=== PATIENT | male | born 1955 | race Caucasian/White ===

== ENCOUNTER 2022-03-07 09:26 | Outpatient (CLI) | payer MEDICARE, SELFPAY ==
[2022-03-07 09:57] LABS: Basophils Percent Auto 0.5 % (0.0-3.0); Eosinophils Percent Auto 3.5 % (0.0-7.0); Hematocrit 44.2 % (37.0-53.0); Hemoglobin* 14.5 gm/dL (13.5-17.5); Lymphocytes Percent Auto 25.9 % (20-44); Mean Corpuscular HGB Conc 33 gm/dL (32-36); Mean Corpuscular Hemoglobin 30 pg (26-34); Mean Corpuscular Volume 92 fL (80-100); Monocytes Percent Auto 6.5 % (0.0-11.0); Neutrophils Percent Auto 63.6 % (42.0-72.0); Platelet Count* 207 K/uL (140-440); RDW Coefficient of Variation % 12.6 % (11.5-15.5); Red Blood Count 4.81 m/uL (4.30-5.90); White Blood Count* 4.33 K/uL (4.50-11.00)
[2022-03-07 09:59] LABS: Slide Review Reflex No
[2022-03-07 10:36] LABS: Creatinine Urine 175.8 mg/dL
[2022-03-07 10:40] LABS: Microalbumin Creatinine Ratio 0 mg/g (0-30); Microalbumin Urine 1 mg/dL
[2022-03-07 11:40] LABS: Albumin* 4.5 g/dL (3.3-5.0); Chloride* 103 mmol/L (96-114); Potassium* 4.5 mmol/L (3.6-5.1); Sodium* 141 mmol/L (135-149)
[2022-03-07 11:42] LABS: Bilirubin Total* 0.9 mg/dL (0.1-1.5); Carbon Dioxide* 29 mmol/L (20-32); Cholesterol* 103 mg/dL (90-199); Creatinine* 1.1 mg/dL (0.5-1.5); Estimated Glomerular Filt Rate 73 ml/min
[2022-03-07 11:43] LABS: Alanine Aminotransferase* 16 U/L (4-50); Alkaline Phosphatase* 96 U/L (40-150); Aspartate Amino Transferase* 23 U/L (12-35); Blood Urea Nitrogen* 20 mg/dL (7-30); Glucose* 167 mg/dL (60-115); Total Protein* 7.2 g/dL (6.0-8.3); Triglycerides* 66 mg/dL (40-149)
[2022-03-07 11:44] LABS: Calcium* 9.4 mg/dL (8.4-10.6); HDL Cholesterol* 55 mg/dL (>=40); LDL Cholesterol Calculated 35 mg/dL (<100)
[2022-03-07 12:16] LABS: PSA Screen* 2.06 ng/mL (0.10-4.00)
== END 2022-03-07 09:27 | disposition home or self-care (01) ==
PROVIDERS: Clinical Nurse Specialist; PCP Internal Medicine; Visit Provider Internal Medicine
DX: E11.9 Type 2 diabetes mellitus without complications (principal); I10 Essential (primary) hypertension; C91.10 Chronic lymphocytic leukemia of B-cell type not having achieved remission; C91.40 Hairy cell leukemia not having achieved remission; Z12.5 Encounter for screening for malignant neoplasm of prostate
CPT/HCPCS: 80053; 80061; 82043; 82570; 84153; 85025

== ENCOUNTER 2022-04-12 09:44 | Outpatient (RCR) | payer MEDICARE, SELFPAY ==
[2022-04-12 10:54] LABS: Basophils Percent Auto 0.8 % (0.0-3.0); Eosinophils Percent Auto 4.4 % (0.0-7.0); Hematocrit 42.4 % (37.0-53.0); Hemoglobin* 13.8 gm/dL (13.5-17.5); Lymphocytes Percent Auto 24.2 % (20-44); Mean Corpuscular HGB Conc 33 gm/dL (32-36); Mean Corpuscular Hemoglobin 30 pg (26-34); Mean Corpuscular Volume 92 fL (80-100); Monocytes Percent Auto 5.7 % (0.0-11.0); Neutrophils Percent Auto 64.9 % (42.0-72.0); Platelet Count* 169 K/uL (140-440); RDW Coefficient of Variation % 12.5 % (11.5-15.5); Red Blood Count 4.63 m/uL (4.30-5.90); White Blood Count* 3.85 K/uL (4.50-11.00)
[2022-04-12 11:01] LABS: Slide Review Reflex Yes
[2022-04-12 11:21] LABS: Immature Reticulocyte Fraction 4.8 % (2.3-13.4); Reticulocyte Hemoglobin Equivi 29.7 pg (29.0-35.0); Reticulocyte Percent 0.8 % (0.5-2.0); Reticulocytes Absolute 0.04 # (0.03-0.08)
[2022-04-12 12:02] LABS: Slide Review Acceptable Review (Acceptable)
== END 2022-10-09 23:59 | disposition home or self-care (01) ==
LOC: CCIC 09:44
PROVIDERS: PCP Internal Medicine; Visit Provider Internal Medicine Hematology & Oncology
DX: C91.40 Hairy cell leukemia not having achieved remission (principal); C91.10 Chronic lymphocytic leukemia of B-cell type not having achieved remission
CPT/HCPCS: 36415; 85025; 85045; 88184; 88185; 99212; 99213

== ENCOUNTER 2022-11-30 08:40 | Outpatient (CLI) | payer MEDICARE, SELFPAY | END 2022-11-30 08:41 | disposition home or self-care (01) | LOC: NFLDREF 12-01 09:40 | PROVIDERS: PCP Internal Medicine; Referring Provider Internal Medicine; Visit Provider Internal Medicine | DX: E11.9 Type 2 diabetes mellitus without complications (principal); I10 Essential (primary) hypertension; Z12.5 Encounter for screening for malignant neoplasm of prostate; C91.10 Chronic lymphocytic leukemia of B-cell type not having achieved remission | CPT/HCPCS: 80053; 80061; 82043; 82570; 84153 ==

== ENCOUNTER 2023-02-07 11:30 | Outpatient (RCR) | payer MEDICARE, SELFPAY ==
--- NOTE | 2023-01-22 11:24 | PT.OPDNX ---
"PT [facility] Daily Note [facility] Daily Note Start: 01/08/23 09:06 Freq: Status: Active Protocol: Document 01/08/23 14:32 [facility] (Rec: 01/08/23 15:24 [facility] [id number]) E-signed By Zohaib Jiménez, PT PT OP Daily Progress Note Visit Information Note Type Daily Note Visit Number 2 Insurance Authorized Visits up to 8 on POC Insurance Information Recert Due Date 03/26/23 Insurance Name Medicare B Medical Diagnosis LBP M54.5 Treating Diagnosis Stiffness of hips M25.652/651 Stiffness of joints (low back) M25.[address] Mo Rowe Subjective Subjective I'm very disappointed in myself I did not do the exercises fully as prescribed. Pt has many questions about the physiology of stretching and wanting to have a program that fits into his daily routine. Pain Comments mild Preferred Name Pat Objective Functional Test Performed & Score Able to sit and don sock/shoe by either placing right foot on plinth or crossing foot over other knee. SL dynamic hinge to ground: unable to perform without assist Patient Instructed in Risks/Benefits Yes Therapeutic Exercise Therapeutic Exercise Minutes (minutes) 45 Therapeutic Exercise: To Restore Reviewed and performed HEP. Functional Status Added Daniel hip flexor stretch and chair squats for leg strength. Access Code: [email or web address] URL: [email or web address] [employer] | [employer]/ Date: 01/08/2023 Prepared by: Zohaib Jiménez Exercises - Seated Piriformis Stretch with Trunk Bend - 2 x daily - 7 x weekly - 1 sets - 2 reps - 30 sec hold - Supine Piriformis Stretch - 2 x daily - 7 x weekly - 1 sets - 2 reps - 30 sec hold - Single Leg Balance with Alternating Floor Reaches - 1 x daily - 7 x weekly - 1 sets - 5-10 reps - Seated Hamstring Stretch - 1 x daily - 7 x weekly - 1 sets - 2 reps - 30 sec hold - Supine Lower Trunk Rotation - 1 x daily - 7 x weekly - 1 sets - 10-15 reps - Standing Hip Hinge - 1 x daily - 7 x weekly - 1 sets - 5 reps - 5 seconds hold - Daniel Stretch - 2 x daily - 7 x weekly - 1 sets - 1 reps - 30-60 seconds hold - Squat with Chair Touch - 1 x daily - 4 x weekly - 1 sets - 10-15 reps Instructed in dynamic warm up stretches to avoid weekend warrior injury with softball, etc. Self Care Management Training Self Care Management Training Recommended the book Built to Move by Cindy Delcid Treatment Minutes Timed Code Treatment Minutes 45 Total Treatment Time 45 Billing Units Therapeutic Exercise Units 3 Assessment/Impression Assessment/Impression Pt very interested in designing the most streamlined stretching and strengthening program that he can fit into his daily routine, such as at work or while sitting at home. We discussed the importance of maintaining mobility for life's daily needs/movement patterns - connecting to patient's personal goals/ desires. Pt to benefit from an additional session to solidify his personal home exercise program. Plan of Care Physical Therapy Goals In 6-8 weeks, patient will: 1) Don socks and shoes from sitting position without low back stiffness or pain 2) Reach floor to lease picker item , back painfree 3) Participate in senior sports (softball) w/o high risk of low back injury, through use of preventative HEP 4) Be I with HEP to facilitae low back strength and hip flexibiliy and strength Daily Plan of Care Continue per POC"
== END 2023-06-07 23:59 | disposition home or self-care (01) ==
PROVIDERS: PCP Internal Medicine; Visit Provider Internal Medicine
DX: M72.2 Plantar fascial fibromatosis (principal); M25.651 Stiffness of right hip, not elsewhere classified; M25.652 Stiffness of left hip, not elsewhere classified; M25.69 Stiffness of other specified joint, not elsewhere classified; R26.81 Unsteadiness on feet; M54.50 Low back pain, unspecified; Z74.09 Other reduced mobility; M79.672 Pain in left foot; Z51.89 Encounter for other specified aftercare
CPT/HCPCS: 97110; 97112; 97140; 97162; 97164; 97535

== ENCOUNTER 2023-02-28 11:23 | Outpatient (CLI) | payer MEDICARE, SELFPAY ==
--- NOTE | 2023-02-28 12:28 | W.ANESCHARGE ---
Anesthesia Charges Start Date/Time Anesthesia Start Date: 02/28/23 Anesthesia Start Time: 12:09 Stop Date/Time Anesthesia Stop Date: 02/28/23 Anesthesia Stop Time: 12:42
--- NOTE | 2023-02-28 12:43 | W.ANESCHARGE ---
Anesthesia Charges Start Date/Time Anesthesia Start Date: 02/28/23 Anesthesia Start Time: 12:09 Stop Date/Time Anesthesia Stop Date: 02/28/23 Anesthesia Stop Time: 12:42
== END 2023-02-28 11:24 | disposition home or self-care (01) ==
LOC: OP CLINIC 11:23
PROVIDERS: PCP Internal Medicine; Visit Provider Surgery
DX: Z12.11 Encounter for screening for malignant neoplasm of colon (principal); K63.5 Polyp of colon; Z86.010 Personal history of colon polyps
CPT/HCPCS: 00811; 45385; 88305; J2704

== ENCOUNTER 2023-06-27 13:57 | Outpatient (RCR) | payer MEDICARE, SELFPAY ==
[2023-06-27 14:21] LABS: Basophils Percent Auto 0.5 % (0.0-3.0); Eosinophils Percent Auto 3.2 % (0.0-7.0); Hematocrit 42.5 % (37.0-53.0); Hemoglobin* 13.9 gm/dL (13.5-17.5); Lymphocytes Percent Auto 26.5 % (20-44); Mean Corpuscular HGB Conc 33 gm/dL (32-36); Mean Corpuscular Hemoglobin 29 pg (26-34); Mean Corpuscular Volume 90 fL (80-100); Monocytes Percent Auto 8.4 % (0.0-11.0); Neutrophils Percent Auto 61.4 % (42.0-72.0); Platelet Count* 173 K/uL (140-440); RDW Coefficient of Variation % 12.8 % (11.5-15.5); Red Blood Count 4.73 m/uL (4.30-5.90); White Blood Count* 4.41 K/uL (4.50-11.00)
[2023-06-27 14:37] LABS: Slide Review Reflex No
[2023-06-27 15:05] LABS: Hemoglobin A1C* 9.1 % (0-5.6)
== END 2023-12-24 23:59 | disposition home or self-care (01) ==
LOC: CCIC 13:57
PROVIDERS: Clinical Nurse Specialist; PCP Internal Medicine; Referring Provider Internal Medicine; Visit Provider Internal Medicine Hematology & Oncology
DX: C91.40 Hairy cell leukemia not having achieved remission (principal); C91.10 Chronic lymphocytic leukemia of B-cell type not having achieved remission; E11.9 Type 2 diabetes mellitus without complications
CPT/HCPCS: 36415; 83036; 85025; 99212; 99213; G0463

== ENCOUNTER 2023-12-11 08:20 | Outpatient (CLI) | payer MEDICARE, SELFPAY ==
--- OUTSIDE RECORDS SUMMARY | 2023-12-11 11:36 | XMS_ITS | Clinical Summary ---
Author Organization [employer] [facility] [employer] Address [place], [place] [address] Care Team Providers Care City Designer Name Role Phone Matthew Rowe MD Primary Care Provider Allergies Active Allergy Reactions Criticality Noted Date Comments Sulfamethoxazole-Trimethoprim Hives 2018 Medications Medication Sig Dispensed Refills Start Date End Date Status atorvastatin (LIPITOR) 20 mg tablet Take 20 mg by mouth once daily. Active aspirin (ECOTRIN) 81 mg enteric coated tablet Take 81 mg by mouth once daily with a meal. Active metFORMIN (GLUCOPHAGE) 1,000 mg tablet Take 2 Tablets (2,000 mg) by mouth once daily with a meal. 0 09/28/2021 Active citalopram (CELEXA) 10 mg tablet once daily. 08/03/2021 Active losartan (COZAAR) 25 mg tabletIndications:Prima ry cardiomyopathy (HC) TAKE 1 TABLET BY MOUTH ONCE DAILY 90 Tablet 3 08/23/2022 Active Active Problems Problem Noted Date Diagnosed Date HTN (hypertension) 01/16/2019 Nonischemic cardiomyopathy 01/16/2019 CLL (chronic lymphocytic leukemia) 01/16/2019 Type II diabetes mellitus 01/16/2019 CLL (chronic lymphocytic leukemia) 01/16/2019 Lumbar stenosis 01/15/2019 Social History Tobacco Use Types Packs/Day Years Used Date Smoking Tobacco: Never Smokeless Tobacco: Never Alcohol Use Standard Drinks/Week Comments Not Currently 0 (1 standard drink = 0.6 oz pur e alcohol) Social Connections Answer Date Recorded Frequency of Communication with Friends and Fami ly Not on file 09/15/2021 Sex and Gender Information Value Date Recorded Sex Assigned at Not on file Gender Identity Not on file Sexual Orientation Not on file Obstetrics History Last Filed Vital Signs Vital Sign Reading Time Taken Comments Blood Pressure 102/58 09/29/2021 9:02 AM CDT Pulse 58 09/29/2021 9:02 AM CDT Temperature 37.2 ??C (98.9 ??F) 01/16/2019 12:00 PM C DT Respiratory Rate 16 09/29/2021 9:02 AM CDT Oxygen Saturation 98% 01/16/2019 12:00 PM CDT Inhaled Oxygen Concentration - - Weight 82.1 kg (181 lb) 09/29/2021 9:02 AM CDT Height 185.4 cm (6' 1) 01/15/2019 1:53 PM CDT Body Mass Index 23.88 01/15/2019 1:53 PM CDT Plan of Treatment Health Maintenance Due Date Last Done Comments Tdap 1964 Depression screening for age 12+ 1965 BMI (ht and wt on same day) for age 18+ 1971 Hepatitis C screening for ag e 18-79 1971 Tetanus booster 1973 Colonoscopy through age 75 1998 Lipids for age 45-75 1998 Zoster (shingles) series for age 50+ (1 of 2) 2003 Medicare Wellness for age 65+ 2018 Pneumococcal series for age 65+ (1 of 1 - PCV) 2018 COVID-19 vaccine series (2022- season) 2023 09/14/2021, 02/21/2021, 08/29/2020, Additional history exists Influenza for age 65+ 02/02/2024 Advance Directives * Full Code (Latest Code Status on File) Date Activated Date Inactivated Comments 01/15/2019 1:37 PM 01/16/2019 7:04 PM Question Answer Comments Code Status Discussion: Per Existing Order Care Teams City Designer Relationship Specialty Start Date End Date Matthew Rowe MD [address] [place] [address] PCP - General Internal Medicine 09/27/21
--- OUTSIDE RECORDS SUMMARY | 2023-12-11 11:36 | XMS_ITS | Clinical Summary ---
Author Organization [place] Address [address] [place] [address] Care Team Providers Care Phosphorus Processing Supervisor Name Role Phone Tristan White MD Primary Care Provider [phone] Jamie Hamlin MD Unavailable Tristan White MD Unavailable [phone] Marlene Rivas APRN [facility] Unavailable [phone] Allergies Active Allergy Reactions Criticality Noted Date Comments Sulfamethoxazole W-Trimethoprim Rash Medium 12/02 Medications Medication Sig Dispensed Refills Start Date End Date Status ASPIRIN PO Take 81 mg by mouth daily Active citalopram (CELEXA) 20 MG tabletIndications: Depression with anxiety Take 0.5 tablets (10 mg) by mouth every evening 30 tablet 5 02/13/2021 Active losartan (COZAAR) 50 MG tabletIndications: NICM (nonischemic cardiomyopathy) (H) Take 1 tablet (50 mg) by mouth daily 90 tablet 3 02/17/2021 Active blood glucose (NO BRAND SPECIFIED) lancets standardIndication s:DM type 2, not at goal (H) Use to test blood sugar 2 times daily or as directed. 100 lancet 3 02/20/2021 Active ONETOUCH VERIO IQ test stripIndications:D M type 2, not at goal (H) USE TO CHECK BLOOD SUGAR TWICE DAILY OR DIRECTED 200 strip 2 05/11/2022 Active Lancets (ONETOUCH DELICA PLUS [id number]) MISCIndications:DM type 2, not at goal (H) 1 Device by Percutaneous route 2 times daily (before meals) Reduced refill amt: - call [phone] to schedule appointment 100 each 6 06/04/2022 Active citalopram (CELEXA) 10 MG tabletIndications: EREN (generalized anxiety disorder) Take 1 tablet (10 mg) by mouth daily Please schedule overdue appointment to return to 90 day refills [phone] 30 tablet 06/08/2022 Active metFORMIN (GLUCOPHAGE XR) 500 MG 24 hr tabletIndications: Type 2 diabetes mellitus with diabetic polyneuropathy, without long-term current use of insulin (H) Take 4 tablets (2,000 mg) by mouth daily (with breakfast) Pat- Reduced refill amt: - call [phone] to schedule appointment/fasting labs 120 tablet 09/28/2022 Active atorvastatin (LIPITOR) 20 MG tabletIndications: Hyperlipidemia LDL goal <100 Take 1 tablet (20 mg) by mouth daily Pat- Reduced refill amt: - call [phone] to schedule appointment/fasting labs 30 tablet 09/28/2022 Active Active Problems Problem Noted Date Diagnosed Date Anxiety with depression 12/18/2020 HTN (hypertension) 01/16/2019 Cardiomyopathy 01/16/2019 Lumbar stenosis 01/15/2019 Fever and neutropenia (H24) 08/22/2017 Hairy cell leukemia, in relapse 08/13/2017 Febrile neutropenia (H24) 08/13/2017 Neutropenic fever (H24) 08/08/2017 Vitamin B12 deficiency (non anemic) 12/16/2016 DM type 2, not at goal 09/22/2016 Type 2 diabetes mellitus wit h diabetic polyneuropathy, without long-term current use of insulin 09/21/2016 Cardiomyopathy, dilated, nonischemic 11/28/2014 LBBB (left bundle branch block) 08/04/2014 Hyperlipidemia LDL goal <100 11/23/2011 Pancytopenia 12/27/2010 Overview: Problem list name updated by automated process. Provider to review and confirm Imo Update utility CLL (chronic lymphocytic leukemia) 12/08/2010 Hairy cell leukemia 12/08/2010 Numbness of feet Resolved Problems Problem Noted Date Diagnosed Date Resolved Date RENDON (dyspnea on exertion) 08/04/2014 Chest pain 08/03/2014 09/22/2016 Advanced directives, counseling/discussion 12/10/2012 11/18/2023 Overview: Advance Care Planning: ACP Review and Resources Provided: Reviewed chart for advance care plan. Isaiah Ely has no plan or code status on file. Discussed available resources and provided with information. Confirmed code status reflects current choices pending further ACP discussions. Confirmed/documented designated decision maker(s). See permanent comments section of demographics in clinical tab. Added by Malissa Rodriguez on 12/10/2012 Immunizations Name Administration Dates Next Due Hepatitis B, Adult 11/26/2008 Influenza (High Dose) 3 kenyatta nt vaccine 07/29/2018 Influenza (IIV3) PF 06/17/2013,03/19/2011,2008 Influenza Vaccine 65+ (Fluzone HD) 02/12/2020 Influenza Vaccine >6 months,quad, PF 03/2019,02/27/2017,05/18/2016,2014 Pneumo Conj 13-V (2010&after) 12/14/2015 Pneumococcal 23 valent 02/12/2020 TDAP Vaccine (Adacel) 10/05/2016,05/30/2006 Family History Medical History Relation Comments Cancer Brother 1 Unknown/Adopted Maternal Grandfather Unknown/Adopted Maternal Grandmother Unknown/Adopted Paternal Grandfather Unknown/Adopted Paternal Grandmother C.A.D. Sister 2 Cancer Sister 2 Relation Status Comments Brother 1 Alive Brother 2 Alive Father Maternal Grandfather Maternal Grandmother Mother Paternal Grandfather Paternal Grandmother Sister 1 Alive Sister 2 Alive Social History Tobacco Use Types Packs/Day Years Used Date Smoking Tobacco: Never Smokeless Tobacco: Never Tobacco Cessation:Counseling Given: No Alcohol Use Standard Drinks/Week Comments No 0 (1 standard drink = 0.6 oz pur e alcohol) PHQ-2 Answer Date Recorded PHQ-2 Score 6 12/16/2020 Adolescent Education Answer Date Record ed Getting School Help Needed Not on file 03/17 Sex and Gender Information Value Date Recorded Sex Assigned at Male 11/15/2020 10:44 AM CDT Gender Identity Male 11/15/2020 10:44 AM CDT Sexual Orientation Straight 11/15/2020 10 :44 AM CDT Last Filed Vital Signs Vital Sign Reading Time Taken Comments Blood Pressure 108/63 01/09/2021 10:28 AM CDT Pulse 58 01/09/2021 10:28 AM CDT Temperature 36.1 ??C (97 ??F) 12/28/2020 8:48 AM CDT Respiratory Rate 18 11/21/2020 11:37 AM CDT Oxygen Saturation 97% 01/09/2021 10:28 AM CDT Inhaled Oxygen Concentration - - Weight 89 kg (196 lb 1.6 oz) 01/09/2021 10:28 AM CDT Height 190.5 cm (6' 3) 01/09/2021 10:28 AM CDT Body Mass Index 24.51 01/09/2021 10:28 AM CDT Plan of Treatment Health Maintenance Due Date Last Done Comments ANNUAL REVIEW OF HM ORDERS 1955 CT COLONOGRAPHY 1955 DEPRESSION ACTION PLAN 1955 FIT 1955 FLEX SIG 1955 sDNA (Cologuard) 1955 RSV VACCINE ( & 60+) (1 - 1-dose 60+ series) 2013 DIABETIC FOOT EXAM 01/15/2019 01/15/2018, 0 01/15/2018, 05/18/2016 FALL RISK ASSESSMENT 02/11/2021 02/12/2020 LIPID 02/11/2021 02/12/2020, 04/0 06/2018, 02/27/2017, Additional history exists MEDICARE ANNUAL WELLNESS VISIT 02/11/2021 02/12/2020, 01/15/2018, 02/27/2017, Additional history exists MICROALBUMIN 02/11/2021 02/12/2020, 04/0 06/2018, 02/27/2017, Additional history exists ZOSTER IMMUNIZATION (2 of 2) 05/24/2021 03/29/2021 EYE EXAM 05/31/2021 05/31/2020, 05/04, 05/29/2019, Additional history exists PHQ-9 06/18/2021 12/16/2020, 11/01, 02/12/2020, Additional history exists A1C 06/30/2021 12/28/2020, 04/03, 10/27/2019, Additional history exists BMP 06/30/2021 12/28/2020, 04/0 11/2020, 03/03/2020, Additional history exists COVID-19 Vaccine ( season) 2023 02/21/2021, 08/29/2020, 07/28/2020 COLONOSCOPY 02/24/2023 02/24/2018, 02/02, 03/10/2015, Additional history exists COLORECTAL CANCER SCREENING 02/24/2023 INFLUENZA VACCINE (Season Ended) 2024 03/29/2021, 02/12/2020, 02/10/2019, Additional history exists ADVANCE CARE PLANNING 02/12/2025 02/13/2020, 013 DTAP/TDAP/TD IMMUNIZATION (3 - Td or Tdap) 10/05/2026 10/05/2016, 05/30/2006 HEPATITIS C SCREENING Completed 08/09/2017, 017 Pneumococcal Vaccine: 65+ Years Completed 02/12/2020, 12/14/2015 HPV IMMUNIZATION Aged Out No longer e ligible based on patient's age to complete this topic IPV IMMUNIZATION Aged Out No longer e ligible based on patient's age to complete this topic MENINGITIS IMMUNIZATION Aged Out No l onger eligible based on patient's age to complete this topic RSV MONOCLONAL ANTIBODY Aged Out No l onger eligible based on patient's age to complete this topic Procedures Procedure Name Priority Date/Time Associated Diagnosis Comments COMPREHENSIVE METABOLIC PANEL Routine 12/28/2020 10:25 AM CDT Hairy cell leukemia, in remission (H) HEMOGLOBIN A1C Routine 12/28/2020 10:25 AM CDT DM type 2, not at goal (H) EYE EXAM - HIM SCAN 05/31/2020 1 2:00 AM PARAFFINER ALBUMIN RANDOM URINE QUANTITATIVE Routine 02/12/2020 10:49 AM CDT Type 2 diabetes mellitus without complication, without long-term current use of insulin (H) LIPID REFLEX TO DIRECT LDL PANEL Routine 02/12/2020 10:43 AM CDT Type 2 diabetes mellitus without complication, without long-term current use of insulin (H) COLONOSCOPY Routine 02/24/2018 1:09 PM CDT HEPATITIS C ANTIBODY Routine 08/09/2017 3:55 AM PARAFFINER Hairy cell leukemia, in relapse (H) from Last 3 Months or Most Recently Relevant to Health Maintenance Results * (ABNORMAL) Hemoglobin A1c (12/28/2020 10:25 AM CDT) Hemoglobin A1C 9.2(H) 0.0 - 5.6 % 12/29/2020 3:[address] [facility] Comment: Normal <5.7% Prediabetes 5.7-6.4% ?? Diabetes 6.5% or higher Note: Adopted from ADA consensus guidelines. Blood STRUCTURE OF LEFT UPPER LIMB / Unknown Venipuncture / Unknown 12/28/2020 10:25 AM CDT 12/28/2020 10:25 AM CDT Tristan White MD LAB - BLOOD ORDER NAOMI [facility] [address] [place] [address] Professional Bldg - [address] [place] [address], [facility] [phone] * (ABNORMAL) Comprehensive metabolic panel (12/28/2020 10:25 AM CDT) Sodium 135 133 - 144 mmol/L 12/28/2020 4:38 PM CDT [facility] Potassium 4.4 3.4 - 5.3 mmol/L 12/28/2020 4:38 PM CDT [facility] Chloride 105 94 - 109 mmol/L 12/28/2020 4:38 PM CDT [facility] Carbon Dioxide (CO2) 26 20 - 32 mmol/L 12/28/2020 4:38 PM CDT [facility] Anion Gap 4 3 - 14 mmol/L 12/28/2020 4:38 PM CDT [facility] Urea Nitrogen 24 7 - 30 mg/dL 12/28/2020 4:38 PM CDT [facility] Creatinine 1.17 0.66 - 1.25 mg/dL 12/28/2020 4:38 PM CDT [facility] Calcium 9.5 8.5 - 10.1 mg/dL 12/28/2020 4:38 PM CDT [facility] Glucose 166(H) 70 - 99 mg/dL 12/28/2020 4:38 PM CDT [facility] Alkaline Phosphatase 62 40 - 150 U/L 12/28/2020 4:38 PM CDT [facility] AST 27 0 - 45 U/L 12/28/2020 4:38 PM CDT [facility] ALT 43 0 - 70 U/L 12/28/2020 4:38 PM CDT [facility] Protein Total 7.1 6.8 - 8.8 g/dL 12/28/2020 4:38 PM CDT [facility] Albumin 4.0 3.4 - 5.0 g/dL 12/28/2020 4:38 PM CDT [facility] Bilirubin Total 0.8 0.2 - 1.3 mg/dL 12/28/2020 4:38 PM CDT [facility] GFR Estimate 64 >60 mL/min/1.7 3m2 12/28/2020 4:38 PM CDT [facility] Comment:As of December 11, 2020, eGFR is calculated by the CKD-EPI creatinine equation, without race adjustment. eGFR can be influenced by muscle mass, exercise, and diet. The reported eGFR is an estimation only and is only applicable if the renal function is stable. Blood STRUCTURE OF LEFT UPPER LIMB / Unknown Venipuncture / Unknown 12/28/2020 10:25 AM CDT 12/28/2020 10:25 AM CDT Renea Magdaleno MD LAB - BLOOD ORDERA BL[facility] [address] [place] [address] Lab (no room number, 1st floor of clinic) [place] [address], [facility] [phone] * EYE EXAM - HIM SCAN (05/31/2020 12:00 AM PARAFFINER) RETINOPATHY NEGATIVE 05/31/2020 Narrative Kayla Lloyd - 05/31/2020 12:00 AM PARAFFINER DIABETIC EYE EXAM ??[facility] Provider Outside OTHER * Albumin Random Urine Quantitative with Creat Ratio (02/12/2020 10:49 AM CDT) Creatinine Urine 265 mg/dL 02/12/2020 5:56 PM CDT [facility] Albumin Urine mg/L 22 mg/L 02/12/2020 6:05 PM CDT [facility] Albumin Urine mg/g Cr 8.26 0 - 17 mg/g Cr 02/12/2020 6:05 PM CDT [facility] Urine specimen (specimen) 02/12/2020 10:49 AM CDT 02/12/2020 10:50 AM CDT Tristan White MD LAB - URINE ORDER NAOMI Performing Organization Address City/State/[facility] Co de Phone Number [facility] [address] [place] [address] * Lipid panel reflex to direct LDL Fasting (02/12/2020 10:43 AM CDT) Cholesterol 114 <200 mg/dL 02/12/2020 4:36 PM CDT [facility] Triglycerides 98 <150 mg/dL 02/12/2020 4:36 PM CDT [facility] Comment:Fasting specimen HDL Cholesterol 55 >39 mg/dL 0 4:36 PM CDT [facility] LDL Cholesterol Calculated 39 <100 mg/dL 02/12/2020 4:36 PM CDT [facility] Comment:Desirable: <100 mg/d l Non HDL Cholesterol 59 <130 mg/dL 02/12/2020 4:36 PM CDT [facility] Blood specimen (specimen) 02/12/2020 10:43 AM CDT 02/12/2020 10:44 AM CDT Tristan White MD LAB - BLOOD ORDER NAOMI [facility] [address] [place], [place] [address] * COLONOSCOPY (02/24/2018 1:09 PM CDT) [facility]OS[facility] [address] [place] [address] [phone] ? Endoscopy Department ___ Patient Name: Isaiah Ely ? Procedure Date: 02/24/2018 1:09 PM ? Date of : 1955 ? Admit Type: Outpatient Age: 62 ?Gender: Male Note Status: Finalized ?Attending MD: Saumya Up MD Pause for the Cause: performed. ? Total Sedation Time: 28 minutes of continuous 1:1 bedside monitoring performed. ___ Procedure: ? Colonoscopy Indications: ? High risk colon cancer surveillance: Personal history of ? colonic polyps Providers: ? Saumya Up MD, Isaiah Nichols RN Referring MD: ?Tristan White MD Medicines: ? Midazolam 2 mg IV, Fentanyl 100 micrograms IV Complications: ? No immediate complications. ___ Procedure: ? Pre-Anesthesia Assessment: ? - Prior to the procedure, a History and Physical was ? performed, and patient medications and allergies were ? reviewed. The patient is competent. The risks and ? benefits of the procedure and the sedation options and ? risks were discussed with the patient. All questions ? were answered and informed consent was obtained. Patient ? identification and proposed procedure were verified by ? the physician and the nurse in the pre-procedure area in ? the procedure room. Mental Status Examination: alert and ? oriented. Airway Examination: normal oropharyngeal ? airway and neck mobility. Respiratory Examination: clear ? to auscultation. CV Examination: normal. Prophylactic ? Antibiotics: The patient does not require prophylactic ? antibiotics. Prior Anticoagulants: The patient has taken ? no previous anticoagulant or antiplatelet agents. ASA ? Grade Assessment: II - A patient with mild systemic ? disease. After reviewing the risks and benefits, the ? patient was deemed in satisfactory condition to undergo ? the procedure. The anesthesia plan was to use moderate ? sedation / analgesia (conscious sedation). Immediately ? prior to administration of medications, the patient was ? re-assessed for adequacy to receive sedatives. The heart ? rate, respiratory rate, oxygen saturations, blood ? pressure, adequacy of pulmonary ventilation, and ? response to care were monitored throughout the ? procedure. The physical status of the patient was ? re-assessed after the procedure. ? After obtaining informed consent, the colonoscope was ? passed under direct vision. Throughout the procedure, ? the patient's blood pressure, pulse, and oxygen ? saturations were monitored continuously. The colonoscopy ? was performed without difficulty. The patient tolerated ? the procedure well. The quality of the bowel preparation ? was good. The Colonoscope was introduced through the ? anus and advanced to the cecum, identified by ? appendiceal orifice and ileocecal valve. ? Findings: ? The perianal and digital rectal examinations were normal. ? Two sessile polyps were found in the descending colon and cecum. The ? polyps were less than 5 mm in size. These polyps were removed with a ? cold biopsy forceps. Resection and retrieval were complete. ? Non-bleeding internal hemorrhoids were found during retroflexion. The ? hemorrhoids were mild. ? Impression: ?- Two less than 5 mm polyps in the descending colon and ? in the cecum, removed with a cold biopsy forceps. ? Resected and retrieved. ? - Non-bleeding internal hemorrhoids. Recommendation: ?- Repeat colonoscopy in 3 - 5 years for surveillance ? based on pathology results. ? - Discharge patient to home (ambulatory). ? - Resume previous diet. ? - Continue present medications. ? - Await pathology results. ? - The findings and recommendations were discussed with ? the patient. ? Electronically signed by: Saumya Up MD Saumya Up MD 02/24/2018 3:26:54 PM I was physically present for the entire viewing portion of the exam. Signature of teaching physician Saumya Up MD Number of Addenda: 0 Note Initiated On: 02/24/2018 1:09 PM Scope In: Scope Out: RADIOLOGY RESULTS 02/24/2018 1:09 PM CDT Tristan White MD PROCEDURES RADIOLOGY RESULTS * Hepatitis C antibody (08/09/2017 3:55 AM PARAFFINER) Hepatitis C Antibody Nonreactive NR^Nonre active 08/09/2017 12:49 PM PARAFFINER [facility] Comment: Assay performance characteristics have not been established for newborns, infants, and children 08/09/2017 3:55 AM PARAFFINER 08/09/2017 4:09 AM PARAFFINER Za Snow PA-C LAB - BLOOD OR DERABLES [address] [address] from Last 3 Months or Most Recently Relevant to Health Maintenance Advance Directives For more information, please contact: [phone] * Full Code (Latest Code Status on File) Date Activated Date Inactivated Comments 08/22/2017 3:30 AM 08/23/2017 5:46 PM * Full Code Date Activated Date Inactivated Comments 08/17/2017 11:25 AM 08/22/2017 3:30 AM * Full Code Date Activated Date Inactivated Comments 08/13/2017 6:22 PM 08/17/2017 11:25 AM * Full Code Date Activated Date Inactivated Comments 08/08/2017 12:02 PM 08/13/2017 6:22 PM * Full Code Date Activated Date Inactivated Comments 08/08/2017 12:04 AM 08/08/2017 12:02 PM Care Teams Phosphorus Processing Supervisor Relationship Specialty Start Date End Date Tristan White MD [address] [place] [phone] PCP - General Family Practice 11/17/10 Jamie Hamlin MD [address] [place] [address] Cardiology 05/29/18 Tristan White MD [address] [place] [phone] Assigned PCP 02/21/20 Marlene Rivas, RADIO PERFORMER PROJECT MANAGER/TEAM COACH [address] [place] [address] Nurse Practitioner Interventional Cardiology 12/28/20
--- OUTSIDE RECORDS SUMMARY | 2023-12-11 11:37 | XMS_ITS | Encounter Summary ---
Author Organization [facility] Address [address] [place] [address] Care Team Providers Care Bread Room Hand Name Role Phone Tristan White MD Primary Care Provider [phone] Renea Magdaleno MD Unavailable Unavailab Jamie Hodges MD Unavailable [phone] Tristan White MD Unavailable [phone] Renea Magdaleno MD Unavailable Unavailab Jamie Hodges MD Unavailable [phone] Tito Gipson MD Unavailable [phone] Marlene Rivas APRN [facility] Unavailable [phone] Roslyn Gray [facility] Unavailable [phone] Jamie Hamlin MD Unavailable [phone] Garret Brown PhD Unavailable [phone] Roslyn Gray [facility] Unavailable [phone] Roslyn Gray [facility] Unavailable [phone] Reason for Visit * Reason Onset Date Comments Patient Request 03/15/2020 Patient is unabl e to find questionnaires in ForMune, needs a link sent to his email so that he can fill out questionnaires if still necessary. Encounter Details Date Type Department Care Team (Late st Contact Info) Description 03/15/[address] [facility] [address] [place] [phone] Garret Brown, PhD [address] [facility] [address] [place] [address] Patient Request (Patient is unable to find questionnaires in Mychart, needs a link sent to his email so that he can fill out questionnaires if still necessary.) Social History Tobacco Use Types Packs/Day Years Used Date Smoking Tobacco: Never Smokeless Tobacco: Never Alcohol Use Standard Drinks/Week Comments No 0 (1 standard drink = 0.6 oz pur e alcohol) PHQ-2 Answer Date Recorded PHQ-2 Score 6 02/12/2020 Sex and Gender Information Value Date Recorded Sex Assigned at Male 11/15/2020 10:44 AM CDT Gender Identity Male 11/15/2020 10:44 AM CDT Sexual Orientation Straight 11/15/2020 10 :44 AM CDT COVID-19 Exposure Response Date Recorded In the last month, have you been in contact with someone who was confirmed or suspected to have Coronavirus / COVID-19? Unable to assess 03/15/2020 6:40 AM CDT documented as of this encounter Miscellaneous Notes * Telephone Encounter - Meghana Grey - 03/15/2020 10:39 PM CDT Reason for call: Other Patient called regarding (reason for call): Patient is unable to find questionnaires in Mychart, needs a link sent to his email so that he can fill out questionnaires if still necessary. Additional comments: Phone number to reach patient: Other phone number: best to send an email Best Time: Can we leave a detailed message on this number? Not Applicable Travel screening: Not Applicable documented in this encounter Plan of Treatment Not on file documented as of this encounter Visit Diagnoses Not on filedocumented in this encounter Additional Health Concerns Assessment Noted Time PHQ-9 Depression Total Score: 15 020 9:42 AM CDT documented as of this encounter Care Teams Bread Room Hand Relationship Specialty Start Date End Date Tristan White MD [address] [place] [phone] PCP - General Family Practice 11/17/10 Renea Magdaleno MD [address] [place] [address] Internal Medicine 12/09/15 03/20/21 Jamie Hamlin MD [address] [place] [phone] Cardiology 05/29/18 Tristan White MD [address] [facility] [address] [place] [address] Assigned PCP 02/21/20 Renea Magdaleno MD NO INFO AVAILABLE 05/18/2022 Assigned Cancer Care Provider 03/25/20 03/09/22 Jamie Hamlin MD [address] [place], [place] [address] Assigned Heart and Vascular Provider 03/25/20 01/14/21 Tito Gipson MD [address] [place], [place] [address] Assigned Musculoskeletal Provider 03/25/20 07/09/20 Marlene Rivas APRN [employer]LECT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 ENGINEER [address] [place], [place] [address] Nurse Practitioner Interventional Cardiology 12/28/20 Roslyn Gray [facility] [address] [place] [address] Pharmacist Pharmacist 01/11/21 03/09/21 Jamie Hamlin MD [address] [place] [id number] Assigned Heart and Vascular Provider 02/19/21 07/13/22 Garret Brown, PhD LP [address] [facility] [address] [place], [place] [address] Assigned Behavioral Health Provider 04/23/21 12/28/22 Roslyn Gray [facility] [address] [id number] Assigned MTM Pharmacist 10/28/21 02/16/22 Roslyn Gray [facility] [address] [address] Assigned MTM Pharmacist 02/28/22 07/27/22 documented as of this encounter
--- OUTSIDE RECORDS SUMMARY | 2023-12-11 11:37 | XMS_ITS | Encounter Summary ---
Author Organization [place] Address [address] [place], [place] [address]. [place] [address] Care Team Providers Care Warehouse Consultant Name Role Phone Tristan White MD Primary Care Provider [phone] Jamie Hamlin MD Unavailable [phone] Tristan White MD Unavailable [phone] Renea Magdaleno MD Unavailable Unavailab Marlene Sahu APRN [facility] Unavailable [phone] Jamie Hamlin MD Unavailable [phone] Garret Brown PhD Unavailable [phone] Roslyn Gray [facility] Unavailable [phone] Roslyn Gray [facility] Unavailable [phone] Reason for Visit * Reason Comments Medication Refill Encounter Details Date Type Department Care Team (Late st Contact Info) Description 02/04/2022 Refill [facility] [address] [place] [address] Tristan White MD [address] [place] [address] Medication Refill Social History Tobacco Use Types Packs/Day Years Used Date Smoking Tobacco: Never Smokeless Tobacco: Never Alcohol Use Standard Drinks/Week Comments No 0 (1 standard drink = 0.6 oz pur e alcohol) PHQ-2 Answer Date Recorded PHQ-2 Score 6 12/16/2020 Sex and Gender Information Value Date Recorded Sex Assigned at Male 11/15/2020 10:44 AM CDT Gender Identity Male 11/15/2020 10:44 AM CDT Sexual Orientation Straight 11/15/2020 10 :44 AM CDT documented as of this encounter Miscellaneous Notes * Telephone Encounter - Tash Bender RN - 02/07/2022 9:19 AM CDT Needs appt, sent 90 day supply with note to pharmacy. Tash Quiñonez RN * Telephone Encounter - Tash Bender RN - 02/06/2022 10:26 AM CDT Requested Prescriptions Pending Prescriptions Disp Refills ??? blood glucose (ONETOUCH VERIO IQ) test strip [Pharmacy Med Name: OneTouch Verio In Vitro Strip]200 strip 2 Sig: USE TO CHECK BLOOD SUGAR TWICE DAILY OR DIRECTED Diabetic Supplies Protocol Failed - 02/04/2022 9:47 PM Failed - Recent (6 mo) or future (30 days) visit within the authorizing provider's specialty Patient had office visit in the last 6 months or has a visit in the next 30 days with authorizing provider. See Patient Info tab in inbasket, or Choose Columns in Meds & Orders section of therefill encounter. Passed - Medication is active on med list Passed - Patient is 18 years of age or older LMOM asking patient to call back to schedule annual physical. Tash Quiñonez RN documented in this encounter Plan of Treatment Not on file documented as of this encounter Visit Diagnoses Diagnosis DM type 2, not at goal (H) Type II or unspecified type diabetes mellitus without mention of complication, uncontrolled documented in this encounter Additional Health Concerns Assessment Noted Time PHQ-9 Depression Total Score: 21 021 7:50 AM CDT documented as of this encounter Care Teams Warehouse Consultant Relationship Specialty Start Date End Date Tristan White MD [address] [phone] PCP - General Family Practice 11/17/10 Jamie Hamlin MD [address] [facility] [address] [place] [address] Cardiology 05/29/18 Tristan White MD [address] [phone] Assigned PCP 02/21/20 Renea Magdaleno MD NO INFO AVAILABLE 05/18/2022 Assigned Cancer Care Provider 03/25/20 03/09/22 Marlene Rivas, ENGINEERING VICE PRESIDENT [facility] [address] [place] [address] [phone] Nurse Practitioner Interventional Cardiology 12/28/20 Jamie Hamlin MD [address] [place] [address] [phone] Assigned Heart and Vascular Provider 02/19/21 07/13/22 Garret Brown, PhD LP [address] [place] [address] [address] [place] [address] Assigned Behavioral Health Provider 04/23/21 12/28/22 Roslyn Gray [facility] [address] [place] [address] [phone] Assigned MTM Pharmacist 10/28/21 02/16/22 Roslyn Gray [facility] [address] [address] [phone] Assigned MTM Pharmacist 02/28/22 07/27/22 documented as of this encounter
--- OUTSIDE RECORDS SUMMARY | 2023-12-11 11:37 | XMS_ITS | Encounter Summary ---
Author Organization [place] Address [address] [facility] [place] [address] Care Team Providers Care Node Js Developer Name Role Phone Tristan White MD Primary Care Provider [phone] Jamie Hamlin MD Unavailable [phone] Tristan White MD Unavailable [phone] Marlene Rivas APRN [facility] Unavailable [phone] Jamie Hamlin MD Unavailable [phone] Garret Brown PhD LP Unavailable [phone] Roslyn Gray [facility] Unavailable [phone] Reason for Visit * Reason Comments Medication Refill Encounter Details Date Type Department Care Team (Late st Contact Info) Description 06/06/[address] [facility] [address] [place] [address] Tristan White MD [address] [place] [address] Medication Refill Social History Tobacco [...] encounter Miscellaneous Notes * Telephone Encounter - Adelaida Kendrick RN - 06/07/2022 7:19 AM CST Requested Prescriptions Pending Prescriptions Disp Refills ??? citalopram (CELEXA) 10 MG tablet [Pharmacy Med Name: Citalopram Hydrobromide 10 MG Oral Tablet]90 tablet 3 Sig: TAKE 1 TABLET BY MOUTH DAILY SSRIs Protocol Failed - 06/06/2022 9:19 PM Failed - Recent (12 mo) or future (30 days) visit within the authorizing provider's specialty Patient has had an office visit with the authorizing provider or a provider within the authorizing providers department within the previous 12 mos or has a future within next 30 days. See Patient Info tab in inbasket, or Choose Columns in Meds & Orders section of the refill encounter. Passed - Medication is active on med list Passed - Patient is age 18 or older Routing refill request to provider for review/approval because: Patient needs to be seen because it has been more than 1 year since last office visit. Pt was left a My chart message to schedule an appointment. Adelaida Kendrick RN [facility] E POLISHER HAND documented in this encounter Plan of Treatment Not on file documented as of this encounter Visit Diagnoses Diagnosis EREN (generalized anxiety disorder) Generalized anxiety disorder documented in this encounter Additional Health Concerns Assessment Noted Time PHQ-9 Depression Total Score: 21 021 7:50 AM CDT documented as of this encounter Care Teams Node Js Developer Relationship Specialty Start Date End Date Tristan White MD [address] [place] [address] PCP - General Family Practice 11/17/10 Jamie Hamlin MD [address] [place] [address] Cardiology 05/29/18 Tristan White MD [address] [place] [address] [address] [place] [address] Assigned PCP 02/21/20 Marlene Rivas APRN EQUIPMENT LEAD [address] [place] [address] Nurse Practitioner Interventional Cardiology 12/28/20 Jamie Hamlin MD [address] [place] [address] Assigned Heart and Vascular Provider 02/19/21 07/13/22 Garret Brown, PhD LP [address] [place] [address] [address]41 [place] [address] Assigned Behavioral Health Provider 04/23/21 12/28/22 Roslyn Gray, [facility] [address] [facility] [address] [place] [address] Assigned MTM Pharmacist 02/28/22 07/27/22 documented as of this encounter
--- OUTSIDE RECORDS SUMMARY | 2023-12-11 11:37 | XMS_ITS | Encounter Summary ---
Author Organization [place] Address [address] [facility] [place] [address] Care Team Providers Care Concrete Carpenter Name Role Phone Tristan White MD Primary Care Provider [phone] Jamie Hamlin MD Unavailable [phone] Tristan White MD Unavailable [phone] Marlene Rivas APRN [facility] Unavailable [phone] Jamie Hamlin MD Unavailable [phone] Garret Brown PhD LP Unavailable [phone] Roslyn Gray [facility] Unavailable Encounter Details Date Type Department Care Team (Late st Contact Info) Description 06/07/2022 [facility] [address] [place] [address] Adelaida Kendrick RN Social History Tobacco Use Types Packs/Day Years [...] AM CDT documented as of this encounter Plan of Treatment Not on file documented as of this encounter Visit Diagnoses Not on filedocumented in this encounter Additional Health Concerns Assessment Noted Time PHQ-9 Depression Total Score: 021 7:50 AM CDT documented as of this encounter Care Teams Concrete Carpenter Relationship Specialty Start Date End Date Tristan White MD [address] [place] [address] PCP - General Family Practice 11/17/10 Jamie Hamlin MD [address] [place] [address] Cardiology 05/29/18 Tristan White MD [address] [place] [address] Assigned PCP 02/21/20 Marlene Rivas, SPECIAL SERVICE REPRESENTATIVE BULK TRUCK DRIVER [address] [place], [place] [phone] Nurse Practitioner Interventional Cardiology 12/28/20 Jamie Hamlin MD [address] [place], [place] 9249[address] Assigned Heart and Vascular Provider 02/19/21 07/13/22 Garret Brown, PhD LP [address] [place] [address] [address] [place], [place] 4907[address] Assigned Behavioral Health Provider 04/23/21 12/28/22 Roslyn Gray, [facility] [address] [place] [address] Assigned MTM Pharmacist 02/28/22 07/27/22 documented as of this encounter
--- OUTSIDE RECORDS SUMMARY | 2023-12-11 11:37 | XMS_ITS | Encounter Summary ---
Author Organization [place] Address [address] [facility] [place] [address] Care Team Providers Care Laborer Pie Bakery Name Role Phone Tristan White MD Primary Care Provider Jamie Hamlin MD Unavailable Tristan White MD Unavailable [phone] Marlene Rivas APRN [facility] Unavailable [phone] Garret Brown PhD LP Unavailable [phone] Roslyn Gray [facility] Unavailable Encounter Details Date Type Department Care Team (Late st Contact Info) Description 07/18/2022 [facility] [address] [place] [address] Hina Dixon RN Social History Tobacco Use Types Packs/Day [...] documented as of this encounter Care Teams Laborer Pie Bakery Relationship Specialty Start Date End Date Tristan White MD [address] [place] [address] PCP - General Family Practice 11/17/10 Jamie Hamlin MD [address] [place] [address] Cardiology 05/29/18 Tristan White MD [address] [facility] [address] [place] [address] Assigned PCP 02/21/20 Marlene Rivas APRN ELECTRIC MELT OPERATOR [address] [place] [address] Nurse Practitioner Interventional Cardiology 12/28/20 Garret Brown, PhD LP [address] [place] [address] 741 [place] [address] Assigned Behavioral Health Provider 04/23/21 12/28/22 Roslyn Gray [facility] [address] [facility] [address] [place] [address] Assigned MTM Pharmacist 02/28/22 07/27/22 documented as of this encounter
--- OUTSIDE RECORDS SUMMARY | 2023-12-11 11:37 | XMS_ITS | Encounter Summary ---
Author Organization [place] Address [address] [facility] [place] [address] Care Team Providers Care Bus Greaser Name Role Phone Tristan White MD Primary Care Provider [phone] Renea Magdaleno MD Unavailable Unavailab Jamie Hodges MD Unavailable [phone] Tristan White MD Unavailable [phone] Renea Magdaleno MD Unavailable Unavailab Marlene Sahu APRN GRAPHIC PRE PRESS TRADES WORKER Unavailable [phone] Roslyn Gray [facility] Unavailable [phone] Jamie Hamlin MD Unavailable [phone] Garret Brown PhD LP Unavailable [phone] Roslyn Gray [facility] Unavailable [phone] Roslyn Gray [facility] Unavailable [phone] Encounter Details Date Type Department Care Team (Late st Contact Info) Description 01/25/2021 [facility] [place] [place] Medical Advice [address] [place] [phone] Roslyn Gray, [facility] [address] [facility] [address] [place] [address] Social History Tobacco Use Types Packs/Day Years [...] or suspected to have Coronavirus / COVID-19? No / Unsure 01/09/2021 10:20 AM CDT documented as of this encounter Plan of Treatment Not on file documented as of this encounter Visit Diagnoses Not on filedocumented in this encounter Additional Health Concerns Assessment Noted Time PHQ-9 Depression Total Score: 21 021 7:50 AM CDT documented as of this encounter Care Teams Bus Greaser Relationship Specialty Start Date End Date Tristan White MD [address] [place] [address] PCP - General Family Practice 11/17/10 Renea Magdaleno MD [address] [place] [address] Internal Medicine 12/09/15 03/20/21 Jamie Hamlin MD [address] [place] [address] Cardiology 05/29/18 Tristan White MD [address] [place] [address] Assigned PCP 02/21/20 Renea Magdaleno MD NO INFO AVAILABLE 05/18/2022 Assigned Cancer Care Provider 03/25/20 03/09/22 Marlene Rivas, SHOP SUPERINTENDENT GRAPHIC PRE PRESS TRADES WORKER [address] [place] [address] Nurse Practitioner Interventional Cardiology 12/28/20 Roslyn Gray [facility] [address] [place] [address] Pharmacist Pharmacist 01/11/21 03/09/21 Jamie Hamlin MD [address] [place] [address] Assigned Heart and Vascular Provider 02/19/21 07/13/22 Garret Brown, PhD LP [address] [place] [address] 741 [place] [address] Assigned Behavioral Health Provider 04/23/21 12/28/22 Roslyn Gray [facility] [address] [place] [address] Assigned MTM Pharmacist 10/28/21 02/16/22 Roslyn Gray [facility] [address] [place] [address] Assigned MTM Pharmacist 02/28/22 07/27/22 documented as of this encounter
--- OUTSIDE RECORDS SUMMARY | 2023-12-11 11:37 | XMS_ITS | Encounter Summary ---
Author Organization [place] Address [address] [place], [place] [address]. [place] [address] Care Team Providers Care Sous Chef Name Role Phone Tristan White MD Primary Care Provider [phone] Jamie Hamlin MD Unavailable [phone] Tristan White MD Unavailable [phone] Renea Magdaleno MD Unavailable Unavailab Marlene Sahu APRN [facility] Unavailable [phone] Jamie Hamlin MD Unavailable [phone] Garret Brown PhD Unavailable [phone] Roslyn Gray [facility] Unavailable [phone] Roslyn Gray [facility] Unavailable [phone] Reason for Visit * Reason Comments Medication Refill Encounter Details Date Type Department Care Team (Late st Contact Info) Description 11/01/2021 Refill [facility] [address] [place] [address] Tristan White MD [address] [place] [address] Medication Refill Social History Tobacco [...] encounter Miscellaneous Notes * Telephone Encounter - Kelly Morales RN - 11/02/2021 10:37 AM CDT Prescription approved per [facility] Refill Protocol. Kelly Salvador RN documented in this encounter Plan of [...] documented as of this encounter Care Teams Sous Chef Relationship Specialty Start Date End Date Tristan White MD [address] [place] [address] PCP - General Family Practice 11/17/10 Jamie Hamlin MD [address] [place] [address] Cardiology 05/29/18 Tristan White MD [address] [place] [address] Assigned PCP 02/21/20 Renea Magdaleno MD NO INFO AVAILABLE 05/18/2022 Assigned Cancer Care Provider 03/25/20 03/09/22 Marlene Rivas, CHIEF OF PARTY GENERAL MANAGER LAND DEPARTMENT [address] [place] [address] Nurse Practitioner Interventional Cardiology 12/28/20 Jamie Hamlin MD [address] [place] [address] Assigned Heart and Vascular Provider 02/19/21 07/13/22 Garret Brown, PhD LP [address] [place] [address] 741 [place] [address] Assigned Behavioral Health Provider 04/23/21 12/28/22 Roslyn Gray [facility] [address] [place] [address] [phone] Assigned MTM Pharmacist 10/28/21 02/16/22 Roslyn Gray [facility] [address] [phone] Assigned MTM Pharmacist 02/28/22 07/27/22 documented as of this encounter
--- OUTSIDE RECORDS SUMMARY | 2023-12-11 11:37 | XMS_ITS | Encounter Summary ---
Author Organization [place] Address [facility] [place] [address] Care Team Providers Care Pulpwood Dealer Name Role Phone Tristan White MD Primary Care Provider [phone] Renea Magdaleno MD Unavailable Unavailab Jamie Hodges MD Unavailable [phone] Tristan White MD Unavailable [phone] Renea Magdaleno MD Unavailable Unavailab Jamie Hodges MD Unavailable [phone] Marlene Rivas APRN WILDLIFE AND GAME PROTECTOR Unavailable [phone] Roslyn Gray [facility] Unavailable [phone] Jamie Hamlin MD Unavailable [phone] Garret Brown PhD LP Unavailable [phone] Roslyn Gray [facility] Unavailable [phone] Roslyn Gray [facility] Unavailable [phone] Reason for Visit * Reason Onset Date Comments Patient Request 01/04/2021 Encounter Details Date Type Department Care Team (Late st Contact Info) Description 01/04/2021 [facility] [address] [place] [address] Tristan White MD [address] [place] [address] Patient Request Social History Tobacco Use Types Packs/Day Years [...] have Coronavirus / COVID-19? No / Unsure 12/30/2020 8:15 AM CDT documented as of this encounter Miscellaneous Notes * Telephone Encounter - Jonatan Hernandes RN - 01/10/2021 9:56 AM CDT Sent provider recommendation * Telephone Encounter - Tristan White MD - 01/10/2021 9:15 AM CDT He already sees oncology hematology. Please let him know that his cancer docs can see if mild anemia needs any evaluation. [facility] * Telephone Encounter - Rose Alberto RN - 01/09/2021 9:[address] White See pt message Do you want him to have a referral to hematology? Referral cued Rose Alberto RN [facility] * Telephone Encounter - Rose Alberto RN - 01/04/2021 5:34 PM CDT MyChart message to pt Rose Alberto RN [facility] documented in this encounter Plan of Treatment Not on file documented as of this encounter Visit Diagnoses Diagnosis DM type 2, not at goal (H) Type II or unspecified type diabetes mellitus without mention of complication, uncontrolled documented in this encounter Additional Health Concerns Assessment Noted Time PHQ-9 Depression Total Score: 21 021 7:50 AM CDT documented as of this encounter Care Teams Pulpwood Dealer Relationship Specialty Start Date End Date Tristan White MD [address] [place] [address] PCP - General Family Practice 11/17/10 Renea Magdaleno MD [address] [place] [address] Internal Medicine 12/09/15 03/20/21 Jamie Hamlin MD [address] [place] [phone] Cardiology 05/29/18 Tristan White MD [address] [place] [address] Assigned PCP 02/21/20 Renea Magdaleno MD NO INFO AVAILABLE 05/18/2022 Assigned Cancer Care Provider 03/25/20 03/09/22 Jamie Hamlin MD [address] [place] [address] [phone] Assigned Heart and Vascular Provider 03/25/20 01/14/21 Marlene Rivas APRN WILDLIFE AND GAME PROTECTOR [address] [place] [address] [phone] Nurse Practitioner Interventional Cardiology 12/28/20 Roslyn Gray [facility] [address] [place] [address] [phone] Pharmacist Pharmacist 01/11/21 03/09/21 Jamie Hamlin MD [address] [place] [address] Assigned Heart and Vascular Provider 02/19/21 07/13/22 Garret Brown, PhD LP [address] [place] [address] [place] [address] [phone] Assigned Behavioral Health Provider 04/23/21 12/28/22 Roslyn Gray [facility] [address] [place] [address] 312334 Assigned MTM Pharmacist 10/28/21 02/16/22 Roslyn Gray [facility] [address] [place] [address] 348604 Assigned MTM Pharmacist 02/28/22 07/27/22 documented as of this encounter
--- OUTSIDE RECORDS SUMMARY | 2023-12-11 11:37 | XMS_ITS | Encounter Summary ---
Author Organization [facility] Address [address] [facility] [place] [address] Care Team Providers Care Shallot Cleaner Name Role Phone Tristan White MD Primary Care Provider [phone] Jamie Hamlin MD Unavailable [phone] Tristan White MD Unavailable [phone] Renea Magdaleno MD Unavailable Unavailab Marlene Sahu APRN [facility] Unavailable [phone] Jamie Hamlin MD Unavailable [phone] Garret Brown PhD LP Unavailable [phone] Roslyn Gray [facility] Unavailable [phone] Roslyn Gray [facility] Unavailable [phone] Reason for Visit * Reason Comments Medication Refill metFORMIN (GLUCOPHAG E XR) 500 MG 24 hr tabletAtorvastatin Encounter Details Date Type Department Care Team (Late st Contact Info) Description 12/21/2021 Refill [facility] [address] [place] [address] Tristan White MD [address] [place] [address] Medication Refill (metFORMIN (GLUCOPHAGE XR) 500 MG 24 hr tablet/Atorvastatin) Social History Tobacco Use Types Packs/Day Years [...] encounter Miscellaneous Notes * Telephone Encounter - Rehana Quach - 03/16/2022 1:37 PM CDT Left voice mail to call back * Telephone Encounter - Tash Bender RN - 12/22/2021 7:07 AM CDT Requested Prescriptions Pending Prescriptions Disp Refills ??? metFORMIN (GLUCOPHAGE XR) 500 MG 24 hr tablet [Pharmacy Med Name: metFORMIN HCl ER 500 MG Oral Tablet Extended Release 24 Hour] 360 tablet 3 Sig: TAKE 4 TABLETS BY MOUTH DAILY WITH BREAKFAST Biguanide Agents Failed - 12/21/2021 10:45 PM Failed - Patient has documented A1c within the specified period of time. If HgbA1C is 8 or greater, it needs to be on file within the past 3 months. If less than 8, must beon file within the past 6 months. Recent Labs Lab Test 12/28/20 1025 A1C 9.2* Failed - Recent (6 mo) or future (30 days) visit within the authorizing provider's specialty Patient had office visit in the last 6 months or has a visit in the next 30 days with authorizing provider or within the authorizing provider's specialty. See Patient Info tab in inbasket, or Choose Columns in Meds & Orders section of the refill encounter. Passed - Patient is age 10 or older Passed - Patient's CR is NOT>1.4 OR Patient's EGFR is NOT<45 within past 12 mos. Recent Labs Lab Test 12/28/20 1025 09/06/20 1130 GFRESTIMATED 64 70 GFRESTBLACK -- 82 Recent Labs Lab Test 12/28/20 1025 CR 1.17 Passed - Patient does NOT have a diagnosis of CHF. Passed - Medication is active on med list ??? atorvastatin (LIPITOR) 20 MG tablet [Pharmacy Med Name: Atorvastatin Calcium 20 MG Oral Tablet]90 tablet 3 Sig: TAKE 1 TABLET BY MOUTH DAILY Statins Protocol Failed - 12/21/2021 10:45 PM Failed - LDL on file in past 12 months Recent Labs Lab Test 02/12/20 1043 LDL 39 Passed - No abnormal creatine kinase in past 12 months No lab results found. Passed - Recent (12 mo) or future (30 [...] - Patient is age 18 or older Last visit 12-28-20. TC please call pt to schedule wellness visit. Tash Quiñonez RN documented in this encounter Plan of Treatment Not on file documented as of this encounter Visit Diagnoses Diagnosis Type 2 diabetes mellitus with diabetic polyneuropathy, without long-term current use of insulin (H) Hyperlipidemia LDL goal <100 Other and unspecified hyperlipidemia documented in this encounter Additional Health Concerns Assessment Noted Time PHQ-9 Depression Total Score: 21 021 7:50 AM CDT documented as of this encounter Care Teams Shallot Cleaner Relationship Specialty Start Date End Date Tristan White MD [address] [place] [address] PCP - General Family Practice 11/17/10 Jamie Hamlin MD [address] [place] [address] Cardiology 05/29/18 Tristan White MD [address] [place] [address] Assigned PCP 02/21/20 Renea Magdaleno MD NO INFO AVAILABLE 05/18/2022 Assigned Cancer Care Provider 03/25/20 03/09/22 Marlene Rivas, OIL AND GAS SUPERINTENDENT FRUIT CUTTER [address] [place] [address] [phone] Nurse Practitioner Interventional Cardiology 12/28/20 Jamie Hamlin MD [address] [place] [address] Assigned Heart and Vascular Provider 02/19/21 07/13/22 Garret Brown, PhD LP [address] [place] [address] [address] [place], [place] [phone] Assigned Behavioral Health Provider 04/23/21 12/28/22 Roslyn Gray [facility] [address] [place] [address] [phone] Assigned MTM Pharmacist 10/28/21 02/16/22 Roslyn Gray [facility] [address] [place] [address] [phone] Assigned MTM Pharmacist 02/28/22 07/27/22 documented as of this encounter
--- OUTSIDE RECORDS SUMMARY | 2023-12-11 11:37 | XMS_ITS | Encounter Summary ---
Author Organization [facility] Address [address] [place] [address] Care Team Providers Care Director Graphics Name Role Phone Tristan White MD Primary Care Provider [phone] Renea Magdaleno MD Unavailable Unavailab Jamie Hodges MD Unavailable + Tristan White MD Unavailable + [phone] Renea Magdaleno MD Unavailable Unavailab Marlene Sahu APRN ORTHOPEDIC SURGEON Unavailable [phone] Roslyn Gray [facility] Unavailable +[phone] Jamie Hamlin MD Unavailable + [phone] Garret Brown PhD Unavailable [phone] Roslyn Gray [facility] Unavailable +[phone] Roslyn Gray [facility] Unavailable +[phone]- Encounter Details Date Type Department Care Team (Late st Contact Info) Description 01/26/2021 [facility] [address] [address] Doni Pereyra Social History Tobacco Use Types Packs/Day Years [...] documented as of this encounter Care Teams Director Graphics Relationship Specialty Start Date End Date Tristan White MD [address] [place] [address] PCP - General Family Practice 11/17/10 Renea Magdaleno MD [address] [place] [address] Internal Medicine 12/09/15 03/20/21 Jamie Hamlin MD [address] [place] [address] Cardiology 05/29/18 Tristan White MD [address] [place] [address] Assigned PCP 02/21/20 Renea Magdaleno MD NO INFO AVAILABLE 05/18/2022 Assigned Cancer Care Provider 03/25/20 03/09/22 Marlene Rivas, BAG PRESS OPERATOR ORTHOPEDIC SURGEON [address] [place] [address] 19263 Nurse Practitioner Interventional Cardiology 12/28/20 Roslyn Gray [facility] [address] [phone] Pharmacist Pharmacist 01/11/21 03/09/21 Jamie Hamlin MD [address] [place] [address] [phone] Assigned Heart and Vascular Provider 02/19/21 07/13/22 Garret Brown, PhD LP [address] [place] [address] [address] [place], [place] 416095 Assigned Behavioral Health Provider 04/23/21 12/28/22 Roslyn Gray [facility] [address] [phone] Assigned MTM Pharmacist 10/28/21 02/16/22 Roslyn Gray [facility] [address] [place] [address] [phone] Assigned MTM Pharmacist 02/28/22 07/27/22 documented as of this encounter
--- OUTSIDE RECORDS SUMMARY | 2023-12-11 11:37 | XMS_ITS | Encounter Summary ---
Author Organization [place] Address [address] [place], [place] [address]. [place] [address] Care Team Providers Care Certified Lactation Counselor Name Role Phone Tristan White MD Primary Care Provider [phone] Jamie Hamlin MD Unavailable [phone] Tristan White MD Unavailable [phone] Renea Magdaleno MD Unavailable Unavailab Marlene Sahu APRN [facility] Unavailable [phone] Jamie Hamlin MD Unavailable [phone] Garret Brown PhD Unavailable [phone] Roslyn Gray [facility] Unavailable [phone] Roslyn Gray [facility] Unavailable [phone] Reason for Visit * Reason Comments Medication Refill Encounter Details Date Type Department Care Team (Late st Contact Info) Description 07/04/2021 Refill [facility] [address] [place] [address] Tristan White MD [address] [place] [address] Medication Refill Social History Tobacco [...] encounter Miscellaneous Notes * Telephone Encounter - Livier Jasso RN - 07/05/2021 8:37 AM CST Requested Prescriptions Pending Prescriptions Disp Refills ??? blood glucose (ONETOUCH VERIO IQ) test strip [Pharmacy Med Name: OneTouch Verio In Vitro Strip]200 strip 3 Sig: USE TO TEST BLOOD SUGAR TWICE DAILY OR DIRECTED Diabetic Supplies Protocol Failed - 07/04/2021 10:34 PM Failed - Recent (6 mo) or [...] is 18 years of age or older ??? metFORMIN (GLUCOPHAGE-XR) 500 MG 24 hr tablet [Pharmacy Med Name: metFORMIN HCl ER 500 MG Oral Tablet Extended Release 24 Hour] 360 tablet 3 Sig: TAKE 4 TABLETS BY MOUTH DAILY WITH BREAKFAST Biguanide Agents Failed - 07/04/2021 10:34 PM Failed - Patient has documented A1c [...] Medication is active on med list ??? Lancets (ONETOUCH DELICA PLUS [id number]) MISC [Pharmacy Med Name: LANCET ONE TCH DEL PLUS 30 G]3 Sig: USE TO TEST BLOOD SUGAR TWICE DAILY OR DIRECTED Diabetic Supplies Protocol Failed - 07/04/2021 10:34 PM Failed - Medication is active on med list Failed - Recent (6 mo) or future (30 days) visit within the authorizing provider's specialty Patient had office visit in the last 6 months or has a visit in the next 30 days with authorizing provider. See Patient Info tab in inbasket, or Choose Columns in Meds & Orders section of therefill encounter. Passed - Patient is 18 years of age or older Signed Prescriptions Disp Refills citalopram (CELEXA) 10 MG tablet 90 tablet 3 Sig: TAKE 1 TABLET BY MOUTH DAILY SSRIs Protocol Passed - 07/04/2021 10:34 PM Passed - Recent (12 mo) or future [...] refill request to provider for review/approval because: Labs not current: A1C Patient needs to be seen because: 6 mo f/u Livier Malone RN [facility] SIDE MECHANIC documented in this encounter Plan of Treatment Not on file documented as of this encounter Visit Diagnoses Diagnosis EREN (generalized anxiety disorder) Generalized anxiety disorder DM type 2, not at goal (H) Type II or unspecified type diabetes mellitus without mention of complication, uncontrolled Type 2 diabetes mellitus with diabetic polyneuropathy, without long-term current use of insulin (H) documented in this encounter Additional Health Concerns Assessment Noted Time PHQ-9 Depression Total Score: 021 7:50 AM CDT documented as of this encounter Care Teams Certified Lactation Counselor Relationship Specialty Start Date End Date Tristan White MD [address] [facility] [address] [place] [phone] PCP - General Family Practice 11/17/10 Jamie Hamlin MD [address] [phone] Cardiology 05/29/18 Tristan White MD [address] [phone] Assigned PCP 02/21/20 Renea Magdaleno MD NO INFO AVAILABLE 05/18/2022 Assigned Cancer Care Provider 03/25/20 03/09/22 Marlene Rivas, LEAD SECURITY OFFICER [facility] [address] [place] [address] Nurse Practitioner Interventional Cardiology 12/28/20 Jamie Hamlin MD [address] [place] [address] [phone] Assigned Heart and Vascular Provider 02/19/21 07/13/22 Garret Brown, PhD LP [address] [place] [address] [address] [place] [address] Assigned Behavioral Health Provider 04/23/21 12/28/22 Roslyn Gray, [facility] [address] [place] [address] Assigned MTM Pharmacist 10/28/21 02/16/22 Roslyn Gray, [facility] [address] [facility] [address] [address] Assigned MTM Pharmacist 02/28/22 07/27/22 documented as of this encounter
--- OUTSIDE RECORDS SUMMARY | 2023-12-11 11:37 | XMS_ITS | Encounter Summary ---
Author Organization [facility] Address [address] [place] [address] Care Team Providers Care Associate Director Name Role Phone Tristan White MD Primary Care Provider Renea Magdaleno MD Unavailable Unavailab Jamie Hodges MD Unavailable + [phone] Tristan White MD Unavailable [phone] Renea Magdaleno MD Unavailable Unavailab Marlene Sahu APRN HOSE OPERATOR Unavailable [phone] Roslyn Gray [facility] Unavailable [phone] Jamie Hamlin MD Unavailable [phone] Garret Brown PhD LP Unavailable [phone] Roslyn Gray [facility] Unavailable [phone] Roslyn Gray [facility] Unavailable [phone] Reason for Visit * Reason Onset Date Comments Erroneous encounter-disregard 02/10/2021 Encounter Details Date Type Department Care Team (Late st Contact Info) Description 02/10/2021 [facility] [address] [place] [address] Tristan White MD [address] [place] [address] Erroneous encounter-disregard Social History Tobacco Use Types Packs/Day Years [...] encounter Miscellaneous Notes * Telephone Encounter - Telma Fang - 02/10/2021 9:30 AM CDT ERROR documented in this encounter Plan of Treatment Not on file documented as of this encounter Visit Diagnoses Not on filedocumented in this encounter Additional Health Concerns Assessment Noted Time PHQ-9 Depression Total Score: 21 021 7:50 AM CDT documented as of this encounter Care Teams Associate Director Relationship Specialty Start Date End Date Tristan White MD [address] [place] [address] PCP - General Family Practice 11/17/10 Renea Magdaleno MD [address] [place] [address] Internal Medicine 12/09/15 03/20/21 Jamie Hamlin MD [address] [place] [address] Cardiology 05/29/18 Tristan White MD [address] [place] [address] Assigned PCP 02/21/20 Renea Magdaleno MD NO INFO AVAILABLE 05/18/2022 Assigned Cancer Care Provider 03/25/20 03/09/22 Marlene Rivas APRN [facility] [address] [place] [address] Nurse Practitioner Interventional Cardiology 12/28/20 Roslyn Gray [facility] [address] [place] [address] [phone] Pharmacist Pharmacist 01/11/21 03/09/21 Jamie Hamlin MD [address] [place] [address] 206255 Assigned Heart and Vascular Provider 02/19/21 07/13/22 Garret Brown, PhD LP [address] [place] [address] [address] [place] [address] Assigned Behavioral Health Provider 04/23/21 12/28/22 Roslyn Gray [facility] [address] [place] [address] Assigned MTM Pharmacist 10/28/21 02/16/22 Roslyn Gray [facility] [address] [place] [address] 389204 Assigned MTM Pharmacist 02/28/22 07/27/22 documented as of this encounter
--- OUTSIDE RECORDS SUMMARY | 2023-12-11 11:37 | XMS_ITS | Encounter Summary ---
Author Organization [place] Address [address] [place] [address] Care Team Providers Care Bath Design Sales Consultant Name Role Phone Tristan White MD Primary Care Provider [phone] Renea Magdaleno MD Unavailable Unavailab Jamie Hodges MD Unavailable [phone] Tristan White MD Unavailable [phone] Renea Magdaleno MD Unavailable Unavailab Jamie Hdoges MD Unavailable [phone] Marlene Rivas APRN PATIENT ACCOUNT LIAISON Unavailable [phone] Roslyn Gray [facility] Unavailable [phone] Jamie Hamlin MD Unavailable [phone] Graret Brown PhD LP Unavailable [phone] Roslyn Gray [facility] Unavailable [phone] Roslyn Gray [facility] Unavailable [phone] Encounter Details Date Type Department Care Team (Late st Contact Info) Description 09/06/2020 [facility] [address] [address] [facility] Social History Tobacco Use Types Packs/Day Years Used Date Smoking Tobacco: Never Smokeless Tobacco: Never Alcohol Use Standard Drinks/Week Comments No 0 (1 standard drink = 0.6 oz pur e alcohol) PHQ-2 Answer Date Recorded PHQ-2 Score 02/12/2020 Sex and Gender Information Value Date Recorded Sex Assigned at Male 11/15/2020 10:44 AM CDT Gender Identity Male 11/15/2020 10:44 AM CDT Sexual Orientation Straight 11/15/2020 10 :44 AM CDT COVID-19 Exposure Response Date Recorded In the last month, have you been in contact with someone who was confirmed or suspected to have Coronavirus / COVID-19? No / Unsure 09/06/2020 11:01 AM CDT documented as of this encounter Plan of Treatment Not on file documented as of this encounter Visit Diagnoses Not on filedocumented in this encounter Additional Health Concerns Assessment Noted Time PHQ-9 Depression Total Score: 020 9:42 AM CDT documented as of this encounter Care Teams Bath Design Sales Consultant Relationship Specialty Start Date End Date Tristan White MD [address] [place] [phone] PCP - General Family Practice 11/17/10 Renea Magdaleno MD [address] [place] [address] Internal Medicine 12/09/15 03/20/21 Jamie Hamlin MD [address] [place] [address] Cardiology 05/29/18 Tristan White MD [address] [place] [address] Assigned PCP 02/21/20 Renea Magdaleno MD NO INFO AVAILABLE 05/18/2022 Assigned Cancer Care Provider 03/25/20 03/09/22 Jamie Hamlin MD [address] [place] [address] Assigned Heart and Vascular Provider 03/25/20 01/14/21 Marlene Rivas APRN [facility] [address] [place] [address] Nurse Practitioner Interventional Cardiology 12/28/20 Roslyn Gray [facility] [address] [place] [address] [phone] Pharmacist Pharmacist 01/11/21 03/09/21 Jamie Hamlin MD [address] [place] [address] Assigned Heart and Vascular Provider 02/19/21 07/13/22 Garret Brown, PhD LP [address] [place] [address] Assigned Behavioral Health Provider 04/23/21 12/28/22 Roslyn Gray [facility] [address] [place] [address] [phone] Assigned MTM Pharmacist 10/28/21 02/16/22 Roslyn Gray [facility] [address] [place] [address] [phone] Assigned MTM Pharmacist 02/28/22 07/27/22 documented as of this encounter
--- OUTSIDE RECORDS SUMMARY | 2023-12-11 11:37 | XMS_ITS | Encounter Summary ---
Author Organization [facility] Address [address] [facility] [place] [address] Care Team Providers Care Director Sales Support Name Role Phone Tristan White MD Primary Care Provider [phone] Jamie Hamlin MD Unavailable [phone] Tristan White MD Unavailable [phone] Marlene Rivas APRN [facility] Unavailable [phone] Jamie Hamlin MD Unavailable [phone] Garret Brown PhD LP Unavailable [phone] Roslyn Gray [facility] Unavailable Encounter Details Date Type Department Care Team (Late st Contact Info) Description 05/11/2022 [facility] [address] [place] [address] Reno Li RN Social History Tobacco Use Types Packs/Day [...] as of this encounter Care Teams Director Sales Support Relationship Specialty Start Date End Date Tristan White MD [address] [place] [address] PCP - General Family Practice 11/17/10 Jamie Hamlin MD [address] [place] [address] Cardiology 05/29/18 Tristan White MD [address] [place] [address] Assigned PCP 02/21/20 Marlene Rivas, ANASTASIA FILM LIBRARY CLERK [address] [place], [place] 0[address] Nurse Practitioner Interventional Cardiology 12/28/20 Jamie Hamlin MD [address] [place], [place] 942985 Assigned Heart and Vascular Provider 02/19/21 07/13/22 Garret Brown, PhD LP [address] [place] [address] 7[address] [place], [place] [phone] Assigned Behavioral Health Provider 04/23/21 12/28/22 Roslyn Gray [facility] [address] [place], [place] 75[address] Assigned MTM Pharmacist 02/28/22 07/27/22 documented as of this encounter
--- OUTSIDE RECORDS SUMMARY | 2023-12-11 11:37 | XMS_ITS ---
Author Organization [facility] Address [address] [place] [address] Care Team Providers Care Disability Insurance Hearing Officer Name Role Phone Tristan White MD Primary Care Provider Jamie Hamlin MD Unavailable [phone] Tristan White MD Unavailable [phone] Marlene Rivas APRN COIN WRAPPING MACHINE OPERATOR Unavailable [phone] Active Problems Problem Noted Date Diagnosed Date [...] Hairy cell leukemia 12/08/2010 Numbness of feet Current Oncology Plans No current plan information found. Past Plans INFUSION Plan Name Start Date Discontinue Date Treatment Medications Discontinue Reason Plan Provider SOT - PENTAMIDINE (NEBUPENT) 08/05/2017 07/23/2018 No medications scheduled. Therapy Complete Radha Zimmerman PA-C INFUSION 2 Plan Name Start Date Discontinue Date Treatment Medications Discontinue Reason Plan Provider GENERIC INFUSION 08/13/2017 08/20/2018 No medications scheduled. Therapy Complete Radha Zimmerman PA-C ONCOLOGY TREATMENT Plan Name Start Date Discontinue Date Treatment Medications Discontinue Reason Plan Provider Cycles Cladribine + Rituxan for Hairy Cell Leukemia 08/05/2017 08/20/2018 cladribine (LEUSTATIN) infusionriTUXimab (RITUXAN) infusion Therapy Complete Renea Magdaleno MD 2 of 2 cycles started Radiation Treatments * No radiation treatments are documented for this patient in [facility]. Treatments may have been administered in another system. Resolved Problems Problem Noted Date Diagnosed Date [...]
--- OUTSIDE RECORDS SUMMARY | 2023-12-11 11:37 | XMS_ITS | Referral Summary ---
Author Organization [place] Address [address] [place] [address] Care Team Providers Care Director Search Marketing Strategies Name Role Phone Tristan White MD Primary Care Provider [phone] Jamie [facility] MD Unavailable Tristan White MD Unavailable [phone] Marlene Rivas APRN [facility] Unavailable [phone] Allergies Active Allergy Reactions Criticality Noted Date [...] 2 05/11/2022 Active Lancets (ONETOUCH DELICA PLUS [id number]) MISCIndications:DM type 2, not at goal (H) 1 Device by Percutaneous route 2 times daily (before meals) Reduced refill amt: - call [phone] to schedule appointment 100 each 6 06/04/2022 Active citalopram (CELEXA) 10 MG tabletIndications: EREN (generalized anxiety disorder) Take 1 tablet (10 mg) by mouth daily Please schedule overdue appointment to return to 90 day refills [phone] 30 tablet 06/08/2022 Active metFORMIN (GLUCOPHAGE XR) 500 MG 24 hr tabletIndications: Type 2 diabetes mellitus with diabetic polyneuropathy, without long-term current use of insulin (H) Take 4 tablets (2,000 mg) by mouth daily (with breakfast) Pat- Reduced refill amt: - call [phone] to schedule appointment/fasting labs 120 tablet 09/28/2022 Active atorvastatin (LIPITOR) 20 MG tabletIndications: Hyperlipidemia LDL goal <100 Take 1 tablet (20 mg) by mouth daily Pat- Reduced refill amt: - call [phone] to schedule appointment/fasting labs 30 tablet 09/28/2022 [...] 23 valent 02/12/2020 TDAP Vaccine (Adacel) 10/05/2016,05/30/2006 Social History Tobacco Use Types Packs/Day Years [...] 01/09/2021 10:28 AM CDT Plan of Treatment Not on file Procedures Procedure Name Priority Date/Time Associated Diagnosis Comments COMPREHENSIVE METABOLIC PANEL Routine 12/28/2020 10:25 AM CDT Hairy cell leukemia, in remission (H) HEMOGLOBIN A1C Routine 12/28/2020 10:25 AM CDT DM type 2, not at goal (H) EYE EXAM - HIM SCAN 05/31/2020 1 2:00 AM SAIL FINISHER HAND ALBUMIN RANDOM URINE QUANTITATIVE Routine 02/12/2020 10:49 AM CDT Type 2 diabetes mellitus without complication, without long-term current use of insulin (H) LIPID REFLEX TO DIRECT LDL PANEL Routine 02/12/2020 10:43 AM CDT Type 2 diabetes mellitus without complication, without long-term current use of insulin (H) COLONOSCOPY Routine 02/24/2018 1:09 PM CDT HEPATITIS C ANTIBODY Routine 08/09/2017 3:55 AM SAIL FINISHER HAND Hairy cell leukemia, in relapse (H) from [...] LAB - BLOOD ORDER NAOMI RD LABORATORY [facility] [address] [facility] [place] [address] [place] [address], [facility] [phone] * (ABNORMAL) Comprehensive metabolic panel (12/28/2020 10:25 [...] Magdaleno MD LAB - BLOOD ORDERA BLES LABORATORY [facility] [address] Lab (no room number, 1st floor of clinic) [place] [address], [facility] [phone] * EYE EXAM - HIM SCAN (05/31/2020 12:00 AM SAIL FINISHER HAND) RETINOPATHY NEGATIVE 05/31/2020 Narrative Kayla Lloyd - 05/31/2020 12:00 AM SAIL FINISHER HAND DIABETIC EYE EXAM ??[facility] Provider Outside OTHER * Albumin Random Urine Quantitative with Creat Ratio (02/12/2020 10:49 AM CDT) Creatinine Urine 265 mg/dL 02/12/2020 5:56 PM CDT [facility] Albumin Urine mg/L 22 mg/L 02/12/2020 6:05 PM CDT [facility] Albumin Urine mg/g Cr 8.26 0 - 17 mg/g Cr 02/12/2020 6:05 PM CDT [facility] Urine specimen (specimen) 02/12/2020 10:49 AM CDT 02/12/2020 10:50 AM CDT Tristan White MD LAB - URINE ORDER NAOMI [facility] [address] [place] [address] * Lipid panel reflex to direct LDL Fasting (02/12/2020 10:43 AM CDT) [facility] Cholesterol 114 <200 mg/dL 02/12/2020 4:36 PM CDT [facility] Triglycerides 98 <150 mg/dL 02/12/2020 4:36 PM CDT [facility] Comment:Fasting specimen HDL Cholesterol 55 >39 mg/dL 0 4:36 PM CDT [facility] LDL Cholesterol Calculated 39 <100 mg/dL 02/12/2020 4:36 PM CDT [facility] Comment:Desirable: <100 mg/d l Non HDL Cholesterol 59 <130 mg/dL 02/12/2020 4:36 PM CDT [facility] Blood specimen (specimen) 02/12/2020 10:43 AM CDT 02/12/2020 10:44 AM CDT Tristan White MD LAB - BLOOD ORDER NAOMI Performing Organization Address [facility] Co de Phone Number [facility] [address], [place] [address] * COLONOSCOPY (02/24/2018 1:09 PM CDT) [facility] COLONOSCOPY [facility] [address] [place] [address] [phone] ? Endoscopy Department ___ Patient Name: Isaiah Amosoughlin ? Procedure Date: 02/24/2018 1:09 PM ? [...] 1:09 PM CDT Tristan White MD PROCEDURES Performing Organization Address City/[facility]/ZIP Co de Phone Number RADIOLOGY RESULTS * Hepatitis C antibody (08/09/2017 3:55 AM SAIL FINISHER HAND) Hepatitis C Antibody Nonreactive NR^Nonre active 08/09/2017 12:49 PM SAIL FINISHER HAND [facility] Comment: Assay performance characteristics have not been established for newborns, infants, and children 08/09/2017 3:55 AM SAIL FINISHER HAND 08/09/2017 4:09 AM SAIL FINISHER HAND Za Snow PA-C LAB - BLOOD OR DERABLES [facility] [address] from Last 3 Months or Most Recently Relevant to Health Maintenance Advance Directives For more information, please contact: [phone] * Full Code (Latest Code Status on [...] 12:04 AM 08/08/2017 12:02 PM Care Teams Director Search Marketing Strategies Relationship Specialty Start Date End Date Tristan White MD [address] [place] [address] PCP - General Family Practice 11/17/10 Jamie [facility] MD [address] [place] [address] Cardiology 05/29/18 Tristan White MD [address] [address] Assigned PCP 02/21/20 Marlene Rivas, SKILLED LABORER DIRECTOR OF RESEARCH [address] [place] [address] Nurse Practitioner Interventional Cardiology 12/28/20
--- OUTSIDE RECORDS SUMMARY | 2023-12-11 11:37 | XMS_ITS | Encounter Summary ---
Author Organization [place] Address [address] [facility] [place] [address] Care Team Providers Care Career Representative Name Role Phone Tristan White MD Primary Care Provider [phone] Renea Magdaleno MD Unavailable Unavailab Jamie Hodges MD Unavailable [phone] Tristan White MD Unavailable +[phone] Renea Magdaleno MD Unavailable Unavailab Jamie Hodges MD Unavailable [phone] Marlene Rivas APRN SYSTEM SUPPORT TECHNICIAN Unavailable [phone] Rsolyn Gray [facility] Unavailable [phone] Jamie [place] MD Unavailable [phone] Garret Brown PhD LP Unavailable [phone] Roslyn Gray [facility] Unavailable [phone] Roslyn Gray [facility] Unavailable [phone] Encounter Details Date Type Department Care Team (Late st Contact Info) Description 07/12/2020 [facility] [address] [place] [address] Tristan White MD [address] [place] [address] Social History Tobacco Use Types Packs/Day Years [...] have Coronavirus / COVID-19? 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 Ayesha Daly RN [facility] HING ROOM SUPERVISOR documented in this encounter Plan of Treatment Not on file documented as of this encounter Visit Diagnoses Not on filedocumented in this encounter Additional Health Concerns Assessment Noted Time PHQ-9 Depression Total Score: 15 020 9:42 AM CDT documented as of this encounter Care Teams Career Representative Relationship Specialty Start Date End Date Tristan White MD [address] [place] [address] PCP - General Family Practice 11/17/10 Renea Magdaleno MD [address] [place] [address] Internal Medicine 12/09/15 03/20/21 Jamie [facility] MD [address] [place] [phone] Cardiology 05/29/18 Tristan White MD [address] [facility] [address] [place] [address] Assigned PCP 02/21/20 Renea Magdaleno MD NO INFO AVAILABLE 05/18/2022 Assigned Cancer Care Provider 03/25/20 03/09/22 Jamie [facility] MD [address] [place] [address] Assigned Heart and Vascular Provider 03/25/20 01/14/21 Marlene Rivas APRN [facility] [address] [place] [address] Nurse Practitioner Interventional Cardiology 12/28/20 Roslyn Gray [facility] [address] [place] [address] [phone] Pharmacist Pharmacist 01/11/21 03/09/21 Jamie [facility] MD [address] [place] [address] Assigned Heart and Vascular Provider 02/19/21 07/13/22 Garret Brown, PhD LP [address] [place] [address] [address] [place], [place] 6[address] Assigned Behavioral Health Provider 04/23/21 12/28/22 Roslyn Gray [facility] [address] [place] [address] Assigned MTM Pharmacist 10/28/21 02/16/22 Roslyn Gray [facility] [address] [place] [address] [phone] Assigned MTM Pharmacist 02/28/22 07/27/22 documented as of this encounter
--- OUTSIDE RECORDS SUMMARY | 2023-12-11 11:37 | XMS_ITS | Encounter Summary ---
Author Organization [place] Address [address] [place] [address] Care Team Providers Care Rn Post Partum Name Role Phone Tristan White MD Primary Care Provider [phone] Renea Magdaleno MD Unavailable Unavailab Jamie Hodges MD Unavailable + [phone] Tristan White MD Unavailable +- [phone] Renea Magdaleno MD Unavailable Unavailab Marlene Sahu APRN [employer] [facility] Unavailable [phone] Roslyn Gray [facility] Unavailable [phone] Jamie [facility] MD Unavailable + [phone] Garret Brown PhD Unavailable [phone] Roslyn Gray [facility] Unavailable +[phone]- Roslyn Gray [facility] Unavailable +[phone]- Encounter Details Date Type Department Care Team (Late st Contact Info) Description 02/02/2021 [facility] [address] [address] Mago Noble Social History Tobacco Use Types Packs/Day Years [...] documented as of this encounter Care Teams Rn Post Partum Relationship Specialty Start Date End Date Tritsan White MD [address] [phone] PCP - General Family Practice 11/17/10 Renea Magdaleno MD [address] [address] Internal Medicine 12/09/15 03/20/21 Jamie [facility] MD [address] [phone] Cardiology 05/29/18 Tristan White MD [address] [place] [address] Assigned PCP 02/21/20 Renea Magdaleno MD NO INFO AVAILABLE 05/18/2022 Assigned Cancer Care Provider 03/25/20 03/09/22 Marlene Rivas, METAPHYSICIAN BONE CRUSHER [address] [place] [address] Nurse Practitioner Interventional Cardiology 12/28/20 Roslyn Gray [facility] [address] [place] [address] [phone] Pharmacist Pharmacist 01/11/21 03/09/21 Jamie [facility] MD [address] [place] [address] [phone] Assigned Heart and Vascular Provider 02/19/21 07/13/22 Garret Brown, PhD LP [address] [place] [address] [address] [place], [place] 036[address] Assigned Behavioral Health Provider 04/23/21 12/28/22 Roslyn Gray [facility] [address] [place] [address] [phone] Assigned MTM Pharmacist 10/28/21 02/16/22 Roslyn Gray [facility] [address] [place] [address] [phone] Assigned MTM Pharmacist 02/28/22 07/27/22 documented as of this encounter
--- OUTSIDE RECORDS SUMMARY | 2023-12-11 11:37 | XMS_ITS | Encounter Summary ---
Author Organization [place] Address [address] [place], [place] [address]. [place] [address] Care Team Providers Care Carpentry Specialist Name Role Phone Tristan White MD Primary Care Provider [phone] Jamie [facility] MD Unavailable [phone] Tristan White MD Unavailable [phone] Renea Magdaleno MD Unavailable Unavailab Marlene Sahu APRN [facility] Unavailable [phone] Jamie [facility] MD Unavailable [phone] Garret Brown PhD Unavailable [phone] [facility] Unavailable [phone] Roslyn Gray [facility] Unavailable [phone] Reason for Visit * Reason Comments Medication Refill Encounter Details Date Type Department Care Team (Late st Contact Info) Description 09/15/2021 Refill [facility] [address] [place] [address] Tristan White MD [address] [place] [address] Medication Refill Social History Tobacco [...] encounter Miscellaneous Notes * Telephone Encounter - Aidee Arias RN - 09/19/2021 7:37 AM CDT Routing refill request to provider for review/approval because: Overdue for apt- last in 12/2020. Added in pharm comments to schedule. Please authorize if appropriate. Thanks, Aidee Arias RN documented in this encounter Plan of [...] documented as of this encounter Care Teams Carpentry Specialist Relationship Specialty Start Date End Date Tristan White MD [address] [place] [phone] PCP - General Family Practice 11/17/10 Jamie [facility] MD [address] [place] [address] Cardiology 05/29/18 Tristan White MD [address] [place] [address] Assigned PCP 02/21/20 Renea Magdaleno MD NO INFO AVAILABLE 05/18/2022 Assigned Cancer Care Provider 03/25/20 03/09/22 Marlene Rivas APRN [facility] [address] [place] [address] Nurse Practitioner Interventional Cardiology 12/28/20 Jamie [facility] MD [address] [place], [place] 990695 Assigned Heart and Vascular Provider 02/19/21 07/13/22 Garret Brown, PhD LP [address] [place] [address] 7[address] [place], [place] 057065 Assigned Behavioral Health Provider 04/23/21 12/28/[address] [facility] [address] [place] [address] [phone] Assigned MTM Pharmacist 10/28/21 02/16/[address] [facility] [address] [place] [address] [phone] Assigned MTM Pharmacist 02/28/22 07/27/22 documented as of this encounter
--- OUTSIDE RECORDS SUMMARY | 2023-12-11 11:37 | XMS_ITS | Encounter Summary ---
Author Organization [place] Address [address] [place], [place] [address]. [place] [address] Care Team Providers Care Floor Attendant Name Role Phone Tristan White MD Primary Care Provider [phone] Jamie [facility] MD Unavailable [phone] Tristan White MD Unavailable [phone] Renea Magdaleno MD Unavailable Unavailab Marlene Sahu APRN [facility] Unavailable [phone] Jamie [facility] MD Unavailable [phone] Garret Brown PhD Unavailable [phone] Roslyn Gray [facility] Unavailable [phone] Roslyn Gray [facility] Unavailable [phone] Reason for Visit * Reason Comments Medication Refill Encounter Details Date Type Department Care Team (Late st Contact Info) Description 09/27/[address] [facility] [address] [place] [address] Tristan White MD [address] [place] [address] Medication Refill Social History Tobacco [...] Telephone Encounter - Livier Jasso RN - 09/28/2021 11:37 AM CDT Requested Prescriptions Pending Prescriptions Disp Refills ??? metFORMIN (GLUCOPHAGE-XR) 500 MG 24 hr tablet [Pharmacy Med Name: metFORMIN HCl ER 500 MG Oral Tablet Extended Release 24 Hour] 360 tablet 3 Sig: TAKE 4 TABLETS BY MOUTH DAILY WITH BREAKFAST Biguanide Agents Failed - 09/27/2021 11:06 PM Failed - Patient has documented A1c [...] BY MOUTH DAILY Statins Protocol Failed - 09/27/2021 11:06 PM Failed - LDL on file in [...] refill request to provider for review/approval because: A1C, LDL, 6 mo f/u Livier Malone, [facility] documented in this encounter Plan of [...] documented as of this encounter Care Teams Floor Attendant Relationship Specialty Start Date End Date Tristan White MD [address] [place] [address] PCP - General Family Practice 11/17/10 Jamie [facility]lin MD [address] [place] [address] Cardiology 05/29/18 Tristan White MD [address] [place] [address] Assigned PCP 02/21/20 Renea Magdaleno MD NO INFO AVAILABLE 05/18/2022 Assigned Cancer Care Provider 03/25/20 03/09/22 Marlene Rivas, PEANUT CLEANER NURSING EDUCATION CONSULTANT [address] [place] [address] Nurse Practitioner Interventional Cardiology 12/28/20 Jamie [facility]lin MD [address] [place], [place] 752735 Assigned Heart and Vascular Provider 02/19/21 07/13/22 Garret Brown, PhD LP [address] [place] [address] [address] [place], [place] 744[address] Assigned Behavioral Health Provider 04/23/21 12/28/22 Roslyn Gray [facility] [address] 620864 Assigned MTM Pharmacist 10/28/21 02/16/22 Roslyn Gray [facility] [address] [address] Assigned MTM Pharmacist 02/28/22 07/27/22 documented as of this encounter
--- OUTSIDE RECORDS SUMMARY | 2023-12-11 11:37 | XMS_ITS | Encounter Summary ---
Author Organization [place] Address [address] [place] [address] Care Team Providers Care Mount Loader Name Role Phone Tristan White MD Primary Care Provider Renea Magdaleno MD Unavailable Unavailab Jamie Hodges MD Unavailable + [phone] Tristan White MD Unavailable [phone] Renea Magdaleno MD Unavailable Unavailab Marlene Sahu APRN [employer] SYSTEM[employer] ADMINISTRATOR Unavailable [phone] Roslyn Gray [facility] Unavailable [phone] Jamie [place] MD Unavailable [phone] Garret Brown PhD LP Unavailable [phone] Roslyn Gray [facility] Unavailable [phone] Roslyn Gray [facility] Unavailable [phone] Encounter Details Date Type Department Care Team (Late st Contact Info) Description 02/17/2021 [facility] [place] [address] [facility] 3rd [place] [address] Garret Brown, PhD [address] [place] [address] Social History Tobacco Use Types Packs/Day Years [...] documented as of this encounter Care Teams Mount Loader Relationship Specialty Start Date End Date Tristan White MD [address] [place] [address] PCP - General Family Practice 11/17/10 Renea Magdaleno MD [address] [place] [address] Internal Medicine 12/09/15 03/20/21 Jamie [place] MD [address] [place] [address] Cardiology 05/29/18 Tristan White MD [address] [place] [address] Assigned PCP 02/21/20 Renea Magdaleno MD NO INFO AVAILABLE 05/18/2022 Assigned Cancer Care Provider 03/25/20 03/09/22 Marlene Rivas APRN JUNIOR LINUX SYSTEMS ADMINISTRATOR [address] [place] [address] Nurse Practitioner Interventional Cardiology 12/28/20 Roslyn Grya [facility] [address] [phone] Pharmacist Pharmacist 01/11/21 03/09/21 Jamie [facility]lin MD [address] [place] [address]805 Assigned Heart and Vascular Provider 02/19/21 07/13/22 Garret Brown, PhD LP [address] [facility] [address] [place], [place] [address] Assigned Behavioral Health Provider 04/23/21 12/28/22 Roslyn Gray [facility] [address] 674254 Assigned MTM Pharmacist 10/28/21 02/16/22 Roslyn Gray [facility] [address] [address] Assigned MTM Pharmacist 02/28/22 07/27/22 documented as of this encounter
--- OUTSIDE RECORDS SUMMARY | 2023-12-11 11:38 | XMS_ITS | Encounter Summary ---
Author Organization [place] Address [address] [facility] [place] [address] Care Team Providers Care Yarn Sorter Name Role Phone Tristan White MD Primary Care Provider [phone] Renea Magdaleno MD Unavailable Unavailab Emily Casiano RN Unavailable + [phone] Tristan White MD Unavailable +- [phone] Jamie Hamlin MD Unavailable + [phone] Anusha Guillermo RN Unavailable +[phone] Tristan White MD Unavailable +- [phone] Tristan White MD Unavailable +- [phone] Renea Magdaleno MD Unavailable Unavailab Jamie Hodges MD Unavailable + 2 Tito Gipson MD Unavailable +[phone] Marlene Rivas APRN BREWERY WORKER Unavailable + [phone] Roslyn Gary [facility] Unavailable +1- Jamie Hamlin MD Unavailable + [phone] Garret Brown PhD LP Unavailable +[phone] Roslyn Gray [facility] Unavailable +1- Roslyn Gray [facility] Unavailable +1- Reason for Visit * Reason Onset Date Comments Prior Auth - Medication 07/25/2017 valACYcl ovir (VALTREX) 500 MG tablet-DENIED Encounter Details Date Type Department Care Team ([facility] st Contact Info) Description 07/25/2017 Telephone [facility] Blood and Marrow Transplant Program [address] [address] Renea Magdaleno MD NO INFO AVAILABLE 05/18/2022 Prior Auth - Medication (valACYclovir (VALTREX) 500 MG tablet-DENIED) Social History Tobacco Use Types Packs/Day Years Used Date Smoking Tobacco: Never Smokeless Tobacco: Never Alcohol Use Standard Drinks/Week Comments No 0 (1 standard drink = 0.6 oz pur e alcohol) Sex and Gender Information Value Date Recorded Sex Assigned at Male 11/15/2020 10:44 AM CDT Gender Identity Male 11/15/2020 10:44 AM CDT Sexual Orientation Straight 11/15/2020 10 :44 AM CDT documented as of this encounter Miscellaneous Notes * Telephone Encounter - Ivana Noriega - 07/29/2017 12:10 PM CST Images from the original note were not included. PRIOR AUTHORIZATION DENIED Medication: valACYclovir (VALTREX) 500 MG tablet-DENIED Denial Date: 07/29/2017 Denial Rational: Appeal Information: SHOP ATTENDANT * Telephone Encounter - Ivana Noriega - 07/26/2017 9:25 AM CST Images from the original note were not included. Central Prior Authorization Team PA Initiation Medication: valACYclovir (VALTREX) 500 MG tablet- PA Initiated Insurance Company: [employer] - Pharmacy Filling the Rx: [facility] [id number] [place] [id number] [address] [facility] [address] Filling Pharmacy Filling Pharmacy Start Date: 07/26/2017 SHOP ATTENDANT * Telephone Encounter - Ale Rodriguez - 07/25/2017 11:47 AM CST Images from the original note were not included. Central Prior Authorization Team SHOP ATTENDANT documented in this encounter Plan of Treatment Not on file documented as of this encounter Visit Diagnoses Not on filedocumented in this encounter Additional Health Concerns Assessment Noted Time PHQ-9 Depression Total Score: 9 09/23/19 17 7:05 AM CDT documented as of this encounter Care Teams Yarn Sorter Relationship Specialty Start Date End Date Tristan White MD [address] [place] [address] PCP - General Family Practice 11/17/10 Tristan White MD [address] [place] [address] PCP - Assigned PCP 12/20/13 08/05/18 Renea Magdaleno MD [address] [place] [address] Internal Medicine 12/09/15 03/20/21 Emily Segura, CHRISTOPHER Nurse Coordinator Hematology & Oncology 12/09/15 07/09/18 Jamie Hamlin MD [address] [place] [address] Cardiology 05/29/18 Anusha Guillermo, RN Nurse Coordinator Hematology & Oncology 07/10/18 01/05/19 Tristan White MD [address] [place] [address] Assigned PCP 12/20/13 02/20/20 Tristan White MD [address] [place] [address] Assigned PCP 02/21/20 Renea Magdaleno MD NO INFO AVAILABLE 05/18/2022 Assigned Cancer Care Provider 03/25/20 03/09/22 Jamie Hamlin MD [address] [place] [address] [phone] Assigned Heart and Vascular Provider 03/25/20 01/14/21 Tito Gipson MD [address] [place] [address] [phone] Assigned Musculoskeletal Provider 03/25/20 07/09/20 Marlene Rivas, AUTOMATION TEST ENGINEER BREWERY WORKER [address] [place] [address] [phone] Nurse Practitioner Interventional Cardiology 12/28/20 Roslyn Gray [facility] [address] [facility] [address] [place] [address] Pharmacist Pharmacist 01/11/21 03/09/21 Jamie Hamlin MD [address] [place] [address] [phone] Assigned Heart and Vascular Provider 02/19/21 07/13/22 Garret Brown, PhD LP [address] [place] [address] [address] [place], [place] 843015 Assigned Behavioral Health Provider 04/23/21 12/28/22 Roslyn Gray [facility] [address] [address] Assigned MTM Pharmacist 10/28/21 02/16/22 Roslyn Gray [facility] [address] [address] Assigned MTM Pharmacist 02/28/22 07/27/22 documented as of this encounter
--- OUTSIDE RECORDS SUMMARY | 2023-12-11 11:38 | XMS_ITS | Encounter Summary ---
Author Organization [place] Address [address] [place] [address] Care Team Providers Care Executive Vice President Of Sales Name Role Phone Tristan White MD Primary Care Provider [phone] Renea Magdaleno MD Unavailable Unavailab Jamie Hodges MD Unavailable + Tristan White MD Unavailable + [phone] Tristan White MD Unavailable +- [phone] Renea Magdaleno MD Unavailable Unavailab Jamie Hodges MD Unavailable + [phone] Tito Gipson MD Unavailable + [phone] Marlene Rivas APRN MOLDER FEEDER Unavailable +[phone] Roslyn Gray [facility] Unavailable +1- Jamie Hamlin MD Unavailable + 2 Garret Brown PhD LP Unavailable +[phone] Roslyn Gray [facility] Unavailable +1- Roslyn Gray [facility] Unavailable +[phone] Encounter Details Date Type Department Care Team (Late st Contact Info) Description 08/22/2019 [facility] Blood and Marrow Transplant Program [address] [address] Renea Magdaleno MD NO INFO AVAILABLE 05/18/2022 Social History Tobacco Use Types Packs/Day Years Used Date Smoking Tobacco: Never Smokeless Tobacco: Never Alcohol Use Standard Drinks/Week Comments No 0 (1 standard drink = 0.6 oz pur e alcohol) PHQ-2 Answer Date Recorded PHQ-2 Score 0 09/01/2018 Sex and Gender Information Value Date Recorded [...] documented as of this encounter Care Teams Executive Vice President Of Sales Relationship Specialty Start Date End Date Tristan White MD [address] [place] [phone] PCP - General Family Practice 11/17/10 Renea Magdaleno MD [address] [place] [address] Internal Medicine 12/09/15 03/20/21 Jamie Hamlin MD [address] [place] [address] Cardiology 05/29/18 Tristan White MD [address] [place] [address] Assigned PCP 12/20/13 02/20/20 Tristan White MD [address] [place] [address] Assigned PCP 02/21/20 Renea Magdaleno MD NO INFO AVAILABLE 05/18/2022 Assigned Cancer Care Provider 03/25/20 03/09/22 Jamie Hamlin MD [address] [place] [address] Assigned Heart and Vascular Provider 03/25/20 01/14/21 Tito Gipson MD [address] [place] [address] Assigned Musculoskeletal Provider 03/25/20 07/09/20 Marlene Rivas APRN [facility] [address] [place] [address] 175185 Nurse Practitioner Interventional Cardiology 12/28/20 Roslyn Gray [facility] [address] [place] [address] [phone] Pharmacist Pharmacist 01/11/21 03/09/21 Jamie Hamlin MD [address] [place] [address] Assigned Heart and Vascular Provider 02/19/21 07/13/22 Garret Brown, PhD LP [address] [place] [address] [place] [address] [phone] Assigned Behavioral Health Provider 04/23/21 12/28/22 Roslyn Gray [facility] [address] [place], [place] [address] [address] [phone] Assigned MTM Pharmacist 10/28/21 02/16/22 Roslyn Gray [facility] [address] [address] Assigned MTM Pharmacist 02/28/22 07/27/22 documented as of this encounter
--- OUTSIDE RECORDS SUMMARY | 2023-12-11 11:38 | XMS_ITS | Encounter Summary ---
Author Organization [place] Address [address] [facility] [place] [address] Care Team Providers Care Commercial Fishing Vessel Operator Name Role Phone Tristan White MD Primary Care Provider [phone] Renea Magdaleno MD Unavailable Unavailab Emily Casiano RN Unavailable + [phone] Tristan White MD Unavailable +- [phone] Jamie Hamlin MD Unavailable + [phone] Anusha Guillermo RN Unavailable +[phone] Tristan White MD Unavailable + [phone] Tristan White MD Unavailable +- [phone] Renea Magdaleno MD Unavailable Unavailab Jamie Hodges MD Unavailable + 2 Tito Gipson MD Unavailable +[phone] Marlene Rivas APRN DISTRICT FIRE MANAGEMENT OFFICER Unavailable + [phone] Roslyn Gray [facility] Unavailable +1- Jamie Hamlin MD Unavailable + 2 Garret Brown PhD LP Unavailable +[phone] Roslyn Gray [facility] Unavailable +1- Roslyn Gray [facility] Unavailable +1- Reason for Visit * Reason Onset Date Comments Refill Request 01/27/2018 metFORMIN (GLUCO PHAGE) 1000 MG tablet Encounter Details Date Type Department Care Team (Late st Contact Info) Description 01/27/2018 Refill [facility] [address] [place] [address] 700 [place] [address] Tristan White MD [address] [place] [address] 700 [place] [address] Refill Request (metFORMIN (GLUCOPHAGE) 1000 MG tablet) Social History Tobacco Use Types Packs/Day Years [...] encounter Miscellaneous Notes * Telephone Encounter - Carlita Rivas RN - 01/28/2018 8:27 AM CDT Medication Refill Request Medication(s) requested: metFORMIN (GLUCOPHAGE) 1000 MG tablet Last Office Visit: 01/15/18 Labs: up to date Next Office Visit: none scheduled at this time Rx approved and refilled per [facility] refill protocol Carlita Rivas RN 01/28/18 8:27 AM * Telephone Encounter - Marga Kat - 01/27/2018 10:08 AM CDT Requested Prescriptions Pending Prescriptions Disp Refills ??? metFORMIN (GLUCOPHAGE) 1000 MG tablet [Pharmacy Med Name: MetFORMIN HCL 1000 MG TABS 1000 TAB] 60 tablet 3 Last Written Prescription Date: 11/05/2017 Last Fill Quantity: -, # refills: 3 Last office visit: 01/15/2018 with prescribing provider: 01/15/2018 Future Office Visit: Sig: TAKE 1 TABLET BY MOUTH TWICE A DAY WITH MEALS Biguanide Agents Passed 01/27/2018 9:13 AM Passed - Blood pressure less than 140/90 in past 6 months BP Readings from Last 3 Encounters: 01/15/18 113/73 12/03/17 118/75 12/03/17 121/76 Passed - Patient has documented LDL within the past 12 mos. Recent Labs Lab Test 02/27/17 1429 LDL 2 Passed - Patient has had a Microalbumin in the past 15 mos. Recent Labs Lab Test 02/27/17 0855 MICROL 14 UMALCR 7.14 Passed - Patient is age 10 or older Passed - Patient has documented A1c within the specified period of time. If HgbA1C is 8 or greater, it needs to be on file within the past 3 months. If less than 8, must beon file within the past 6 months. Recent Labs Lab Test 01/15/18 0835 A1C 6.8* Passed - Patient's CR is NOT>1.4 OR Patient's EGFR is NOT<45 within past 12 mos. Recent Labs Lab Test 11/21/17 1246 GFRESTIMATED 72 GFRESTBLACK 87 Recent Labs Lab Test 11/21/17 1246 CR 1.04 Passed - Patient does NOT have a diagnosis of CHF. Passed - Recent (6 mo) or future (30 days) visit within the authorizing provider's specialty Patient had office visit in the last 6 months or has a visit in the next 30 days with authorizing provider or within the authorizing provider's specialty. See Patient Info tab in inbasket, or Choose Columns in Meds & Orders section of the refill encounter. documented in this encounter Plan of Treatment Not on file documented as of this encounter Visit Diagnoses Diagnosis Type 2 diabetes mellitus without complication, without long-term current use of insulin (H) documented in this encounter Additional Health Concerns Assessment Noted Time PHQ-9 Depression Total Score: 9 09/23/19 17 7:05 AM CDT documented as of this encounter Care Teams Commercial Fishing Vessel Operator Relationship Specialty Start Date End Date Tristan White MD [address] [facility] [address] [place] [address] PCP - General Family Practice 11/17/10 Tristan White MD [address] [place] [address] PCP - Assigned PCP 12/20/13 08/05/18 Renea Magdaleno MD [address] [place] [address] Internal Medicine 12/09/15 03/20/21 Emily Segura, RN Nurse Coordinator Hematology & Oncology 12/09/15 07/09/18 Jamie Hamlin MD [address] [place] [phone] Cardiology 05/29/18 Anusha Guillermo, CHRISTOPHER Nurse Coordinator Hematology & Oncology 07/10/18 01/05/19 Tristan White MD [address] [place] [address] Assigned PCP 12/20/13 02/20/20 Tristan White MD [address] [place] [address] Assigned PCP 02/21/20 Renea Magdaleno MD NO INFO AVAILABLE 05/18/2022 Assigned Cancer Care Provider 03/25/20 03/09/22 Jamie Hamlin MD [address] [place] [address] [phone] Assigned Heart and Vascular Provider 03/25/20 01/14/21 Tito Gipson MD 9 [place] [address] Assigned Musculoskeletal Provider 03/25/20 07/09/20 Marlene Rivas APRN [facility] [address] [place] [address] Nurse Practitioner Interventional Cardiology 12/28/20 Roslyn Gray [facility] [address] [place] [address] [phone] Pharmacist Pharmacist 01/11/21 03/09/21 Jamie Hamlin MD [address] [place] [address] Assigned Heart and Vascular Provider 02/19/21 07/13/22 Garret Brown, PhD LP [address] [place] [address] 741 [place] [address] Assigned Behavioral Health Provider 04/23/21 12/28/22 Roslyn Gray, [facility] [address] [place] [address] Assigned MTM Pharmacist 10/28/21 02/16/22 Roslyn Gray [facility] [address] [place] [address] [phone] Assigned MTM Pharmacist 02/28/22 07/27/22 documented as of this encounter
--- OUTSIDE RECORDS SUMMARY | 2023-12-11 11:38 | XMS_ITS | Encounter Summary ---
Author Organization [place] Address [address] [place] [address] Care Team Providers Care Head Loft Worker Name Role Phone Tristan White MD Primary Care Provider [phone] Renea Magdaleno MD Unavailable Unavailab Jamie Hodges MD Unavailable + Tristan White MD Unavailable + [phone] Tristan White MD Unavailable + [phone] Renea Magdaleno MD Unavailable Unavailab Jamie Hodges MD Unavailable + 2 Tito Gipson MD Unavailable +[phone] Marlene Rivas APRN [facility] Unavailable +[phone] Roslyn Gray [facility] Unavailable +1- Jamie Hamlin MD Unavailable + Garret Brown PhD LP Unavailable +[phone] Roslyn Gray [facility] Unavailable +1- Roslyn Gray [facility] Unavailable +[phone] Reason for Visit * Reason Onset Date Comments *-*INCOMING RECORDS*-* 01/06/2019 Encounter Details Date Type Department Care Team (Late st Contact Info) Description 01/06/2019 PRE VISIT [facility] [address] [facility] [address] [place] [address] Ozzie Erickson MD [address] [place] [address] *-*INCOMING RECORDS*-* Social History Tobacco Use Types Packs/Day Years [...] Miscellaneous Notes * Telephone Encounter - Ayesha Quach - 01/01/2019 11:00 AM CDT RECORDS RECEIVED FROM: Chronic right-sided low back pain with right-sided sciatica. MRI done @[facility] previous surgery 10 years ago or more he thinks in [place] DATE RECEIVED: Jan 06, 2019 NOTES STATUS DETAILS OFFICE NOTE from referring provider Internal 01/01/19 Dr. Gipson OFFICE NOTE from other specialist Received DISCHARGE SUMMARY from hospital In process DISCHARGE REPORT from the ER N/A OPERATIVE REPORT In process Microdiscectomy MEDICATION LIST Internal IMPLANT RECORD/STICKER N/A LABS CBC/DIFF N/A CULTURES N/A INJECTIONS DONE IN RADIOLOGY Received 12/19/18 MRI Received 10/23/18 CT SCAN N/a XRAYS (IMAGES & REPORTS) Internal 03/21/16 TUMOR PATHOLOGY Slides & report N/A 01/01/19 11:03 AM Faxed request and signed savanah to [facility]. 3:18 PM received fax from [facility], omitting the op note[facility] records older than 7 years. She will check their old system and call me back. 4:43 PM [facility] called back, they do not have the op note. NEED TO REQUEST FROM [facility] documented in this encounter Plan of Treatment Not on file documented as of this encounter Visit Diagnoses Not on filedocumented in this encounter Additional Health Concerns Assessment Noted Time PHQ-9 Depression Total Score: 9 04/22/20 17 7:05 AM CDT documented as of this encounter Care Teams Head Loft Worker Relationship Specialty Start Date End Date Tristan White MD [address] [place] [address] PCP - General Family Practice 11/17/10 Renea Magdaleno MD [address] [place] [address] Internal Medicine 12/09/15 03/20/21 Jamie Hamlin MD [address] [place] [address] MD Cardiology 05/29/18 Tristan White MD [address] [place] [address] Assigned PCP 12/20/13 02/20/20 Tristan White MD [address] [place] [address] Assigned PCP 02/21/20 Renea Magdaleno MD NO INFO AVAILABLE 05/18/2022 Assigned Cancer Care Provider 03/25/20 03/09/22 Jamie Hamlin MD [address] [place], [place] 925285 Assigned Heart and Vascular Provider 03/25/20 01/14/21 Tito Gipson MD [address] [place], [place] 335045 Assigned Musculoskeletal Provider 03/25/20 07/09/20 Marlene Rivas APRN RESTAURANT SHIFT SUPERVISOR [address] [place], [place] [phone] Nurse Practitioner Interventional Cardiology 12/28/20 Roslyn Gray [facility] [address] [place] [address] [phone] Pharmacist Pharmacist 01/11/21 03/09/21 Jamie Hamlin MD [address] [place] [address] [phone] Assigned Heart and Vascular Provider 02/19/21 07/13/22 Garret Brown, PhD LP [address] [place] [address] 741 [place], [place] [phone] Assigned Behavioral Health Provider 04/23/21 12/28/22 Roslyn Gray [facility] [address] [place] [address] Assigned MTM Pharmacist 10/28/21 02/16/22 Roslyn Gray [facility] [address] [place] [address] [phone] Assigned MTM Pharmacist 02/28/22 07/27/22 documented as of this encounter
--- OUTSIDE RECORDS SUMMARY | 2023-12-11 11:38 | XMS_ITS | Encounter Summary ---
Author Organization [place] Address [address] [place] [address] Care Team Providers Care Washer Engineer Helper Name Role Phone Tristan White MD Primary Care Provider [phone] Renea Magdaleno MD Unavailable Unavailab Jamie Hodges MD Unavailable + Tristan White MD Unavailable + [phone] Tristan White MD Unavailable +- [phone] Renea Magdaleno MD Unavailable Unavailab Jamie Hodges MD Unavailable + 2 Tito Gipson MD Unavailable +[phone] Marlene Rivas APRN DRAWER IN DOBBY LOOM Unavailable +[phone] Roslyn Gray [facility] Unavailable +1- Jamie Hamlin MD Unavailable + Garret Brown PhD LP Unavailable +[phone] Roslyn Gray [facility] Unavailable +1- Roslyn Gray [facility] Unavailable +- Encounter Details Date Type Department Care Team (Late st Contact Info) Description 05/07/2019 [facility] Blood and Marrow Transplant Program [address] [address] Renea Magdaleno MD NO INFO [...] documented as of this encounter Care Teams Washer Engineer Helper Relationship Specialty Start Date End Date Tristan White MD [address] [place] [address] PCP - General Family Practice 11/17/10 Renea Magdaleno MD [address] [place] [address] Internal Medicine 12/09/15 03/20/21 Jamie Hamlin MD [address] [place] [address] Cardiology 05/29/18 Tristan White MD [address] [place] [address] Assigned PCP 12/20/13 02/20/20 Tristan White MD [address] [place] [address] Assigned PCP 02/21/20 Renea Magdaleno MD NO INFO AVAILABLE 05/18/2022 Assigned Cancer Care Provider 03/25/20 03/09/22 Jamie Hamlin MD [address] [place] [address] Assigned Heart and Vascular Provider 03/25/20 01/14/21 Tito Gipson MD [address] [place] [address] Assigned Musculoskeletal Provider 03/25/20 07/09/20 Marlene Rivas APRN [facility] [address] [place] [address] [phone] Nurse Practitioner Interventional Cardiology 12/28/20 Roslyn Gray [facility] [address] [place] [address] [phone] Pharmacist Pharmacist 01/11/21 03/09/21 Jamie Hamlin MD [address] [place] [address] Assigned Heart and Vascular Provider 02/19/21 07/13/22 Garret Brown, PhD LP [address] [place] [address] [place] [address] 575385 Assigned Behavioral Health Provider 04/23/21 12/28/22 Roslyn Gray [facility] [address] [place], [place] [address] [address] 712574 Assigned MTM Pharmacist 10/28/21 02/16/22 Roslyn Gray [facility] [address] [address] Assigned MTM Pharmacist 02/28/22 07/27/22 documented as of this encounter
--- OUTSIDE RECORDS SUMMARY | 2023-12-11 11:38 | XMS_ITS | Encounter Summary ---
Author Organization [place] Address [address] [place] [address] Care Team Providers Care Automotive Accessory Installer Name Role Phone Tristan White MD Primary Care Provider +[phone] Renea Magdaleno MD Unavailable Unavailab Emily Casiano RN Unavailable + [phone] Tristan White MD Unavailable +- [phone] Jamie Hamlin MD Unavailable + [phone] Anusha Guillermo RN Unavailable +[phone] Tristan White MD Unavailable + [phone] Tristan White MD Unavailable +- [phone] Renea Magdaleno MD Unavailable Unavailab Jamie Hodges MD Unavailable + 2 Tito Gipson MD Unavailable +[phone] Marlene Rivas APRN HIGHWAY MAINTAINER Unavailable + [phone] Roslyn Gray [facility] Unavailable +1- Jamie Hamlin MD Unavailable + 2 Garret Brown PhD LP Unavailable +[phone] Roslyn Gray [facility] Unavailable +1- Roslyn Gray [facility] Unavailable +1- Reason for Visit * Reason Onset Date Comments Prior Auth - Medication 11/30/2016 atorvast atin (LIPITOR) 10 MG tablet- Denied Encounter Details Date Type Department Care Team (Late st Contact Info) Description 12/18/[address] [address] Jamie Hamlin MD [address] [place] [address] Prior Auth - Medication (atorvastatin (LIPITOR) 10 MG tablet- Denied) Social History Tobacco Use Types Packs/Day Years [...] encounter Miscellaneous Notes * Telephone Encounter - Neli Hayes - 01/04/2017 1:38 PM CDT Images from the original note were not included. PRIOR AUTHORIZATION DENIED Medication: atorvastatin (LIPITOR) 10 MG tablet- Denied Denial Date: 12/27/2016 Denial Rational: Called plan for more information regarding denial and rep states that it was denied because of the quantity limit. Plan covers 51 tablets per 30 days and 180 tablets per 90 days exceeded the limit. If you feel there is additional information related to this case that might affect this decision and an appeal is desired, please submit a written letter of medical necessity to our [employer]. Rep said she is faxing me the actual denial letter. Appeal Information: * Telephone Encounter - Madelyn Sandy - 12/26/2016 6:32 PM CDT Images from the original note were not included. PA Initiation Medication: atorvastatin (LIPITOR) 10 MG tablet Insurance Company: [employer] - Pharmacy Filling the Rx: [facility] [id number] [place], [place] - [address] Filling Pharmacy Filling Pharmacy Start Date: 12/26/2016 documented in this encounter Plan of Treatment Not on file documented as of this encounter Visit Diagnoses Not on filedocumented in this encounter Additional Health Concerns Assessment Noted Time PHQ-9 Depression Total Score: 9 09/23/19 17 7:05 AM CDT documented as of this encounter Care Teams Automotive Accessory Installer Relationship Specialty Start Date End Date Tristan White MD [address] [place] [phone] PCP - General Family Practice 11/17/10 Tristan White MD [address] [place] [address] PCP - Assigned PCP 12/20/13 08/05/18 Renea Magdaleno MD [address] [place] [address] Internal Medicine 12/09/15 03/20/21 Emily Segura RN Nurse Coordinator Hematology & Oncology 12/09/15 07/09/18 Jamie Hamlin MD [address] [place] [address] Cardiology 05/29/18 Anusha Guillermo, RN Nurse Coordinator Hematology & Oncology 07/10/18 01/05/19 Tristan White MD [address] [place] [address] Assigned PCP 12/20/13 02/20/20 Tristan White MD [address] [facility] [place] [address] Assigned PCP 02/21/20 Renea Magdaleno MD NO INFO AVAILABLE 05/18/2022 Assigned Cancer Care Provider 03/25/20 03/09/22 Jamie Hamlin MD [address] [place] [address] [phone] Assigned Heart and Vascular Provider 03/25/20 01/14/21 Tito Gipson MD [address] [place] [address] 120215 Assigned Musculoskeletal Provider 03/25/20 07/09/20 Marlene Rivas, BUSINESS PROGRAMMER HIGHWAY MAINTAINER [address] [place] [address] [phone] Nurse Practitioner Interventional Cardiology 12/28/20 Roslyn Gray [facility] [address] [facility] [address] [place] [address] Pharmacist Pharmacist 01/11/21 03/09/21 Jamie Hamlin MD [address] [place] [address] [phone] Assigned Heart and Vascular Provider 02/19/21 07/13/22 Garret Brown, PhD LP [address] [place] [address] 741 [place], [place] 557125 Assigned Behavioral Health Provider 04/23/21 12/28/22 Roslyn Gray [facility] [address] [address] Assigned MTM Pharmacist 10/28/21 02/16/22 Roslyn Gray RP [address] [address] Assigned MTM Pharmacist 02/28/22 07/27/22 documented as of this encounter
--- OUTSIDE RECORDS SUMMARY | 2023-12-11 11:38 | XMS_ITS | Encounter Summary ---
Author Organization [place] Address [facility] [place] [address] Care Team Providers Care Habilitation Specialist Name Role Phone Tristan White MD Primary Care Provider +[phone] Renea Magdaleno MD Unavailable Unavailab Emily Casiano RN Unavailable + [phone] Tristan White MD Unavailable +- [phone] Jamie Hamlin MD Unavailable + [phone] Anusha Guillermo RN Unavailable +[phone] Tristan White MD Unavailable + [phone] Tristan White MD Unavailable +- [phone] Renea Magdaleno MD Unavailable Unavailab Jamie Hodges MD Unavailable + 2 Tito Gipson MD Unavailable +[phone] Marlene Rivas APRN DIRECTOR BUSINESS INTELLIGENCE Unavailable +[phone] Roslyn Gray [facility] Unavailable +1- Jamie Hamlin MD Unavailable + 2 Garret Brown PhD LP Unavailable +[phone] Roslyn Gray [facility] Unavailable +1- Roslyn Gray [facility] Unavailable +06-08 Encounter Details Date Type Department Care Team (Late st Contact Info) Description 02/05/2017 [facility] Blood and Marrow Transplant Program [address] [phone] Renea Magdaleno MD NO INFO AVAILABLE 05/18/2022 [...] documented as of this encounter Care Teams Habilitation Specialist Relationship Specialty Start Date End Date Tristan White MD [address] [place] [phone] PCP - General Family Practice 11/17/10 Tristan White MD [address] [place] [address] PCP - Assigned PCP 12/20/13 08/05/18 Renea Magdaleno MD [address] [place] [address] Internal Medicine 12/09/15 03/20/21 Emily Segura, RN Nurse Coordinator Hematology & Oncology 12/09/15 07/09/18 Jamie Hamlin MD [address] [place] [address] Cardiology 05/29/18 Anusha Guillermo, RN Nurse Coordinator Hematology & Oncology 07/10/18 01/05/19 Tristan White MD [address] [phone] Assigned PCP 12/20/13 02/20/20 Tristan White MD [address] [facility] [address] [place] [address] Assigned PCP 02/21/20 Renea Magdaleno MD NO INFO AVAILABLE 05/18/2022 Assigned Cancer Care Provider 03/25/20 03/09/22 Jamie Hamlin MD [address] [place] [address] [phone] Assigned Heart and Vascular Provider 03/25/20 01/14/21 Tito Gipson MD [address] [place] [address] [phone] Assigned Musculoskeletal Provider 03/25/20 07/09/20 Marlene Rivas, GROUP UNDERWRITER DIRECTOR BUSINESS INTELLIGENCE [address] [place] [address] [phone] Nurse Practitioner Interventional Cardiology 12/28/20 Roslyn Gray [facility] [address] [place] [address] [phone] Pharmacist Pharmacist 01/11/21 03/09/21 Jamie Hamlin MD [address] [place] [address] 535105 Assigned Heart and Vascular Provider 02/19/21 07/13/22 Garret Brown, PhD LP [address] [place] [address] 741 [place] [address] Assigned Behavioral Health Provider 04/23/21 12/28/22 Roslyn Gray [facility] [address] [place] [address] Assigned MTM Pharmacist 10/28/21 02/16/22 Roslyn Gray [facility] [address] [place] [address] Assigned MTM Pharmacist 02/28/22 07/27/22 documented as of this encounter
--- OUTSIDE RECORDS SUMMARY | 2023-12-11 11:38 | XMS_ITS | Encounter Summary ---
Author Organization [place] Address [address] [place] [address] Care Team Providers Care Doctor Of Veterinary Medicine Name Role Phone Tristan White MD Primary Care Provider [phone] Renea Magdaleno MD Unavailable Unavailab Jamie Hodges MD Unavailable + [phone] Tristan White MD Unavailable +- [phone] Renea Magdaleno MD Unavailable Unavailab Jamie Hodges MD Unavailable +[phone] Tito Gipson MD Unavailable +[phone]- [phone] Marlene Rivas APRN [facility] Unavailable +[phone] Roslyn Gray [facility] Unavailable +[phone] Jamie Hamlin MD Unavailable + [phone] Garret Brown PhD LP Unavailable +[phone] Roslyn Gray [facility] Unavailable +[phone] Roslyn Gray [facility] Unavailable +[phone] Encounter Details Date Type Department Care Team (Late st Contact Info) Description 03/03/2020 [facility] Blood and Marrow Transplant Program [address] [address] Renea Magdaleno MD NO INFO [...] have Coronavirus / COVID-19? No / Unsure 03/03/2020 1:55 PM CDT documented as of this encounter Plan of Treatment Not on file documented as of this encounter Visit Diagnoses Not on filedocumented in this encounter Additional Health Concerns Assessment Noted Time PHQ-9 Depression Total Score: 15 020 9:42 AM CDT documented as of this encounter Care Teams Doctor Of Veterinary Medicine Relationship Specialty Start Date End Date Tristan White MD [address] [place] [address] PCP - General Family Practice 11/17/10 Renea Magdaleno MD [address] [place] [address] Internal Medicine 12/09/15 03/20/21 Jamie Hamlin MD [address] [place] [address] Cardiology 05/29/18 Tristan White MD [address] [place] [address] Assigned PCP 02/21/20 Renea Madgaleno MD NO INFO AVAILABLE 05/18/2022 Assigned Cancer Care Provider 03/25/20 03/09/22 Jamie Hamlin MD [address] [place] [address] Assigned Heart and Vascular Provider 03/25/20 01/14/21 Tito Gipson MD [address] [place] [address] [phone] Assigned Musculoskeletal Provider 03/25/20 07/09/20 Marlene Rivas APRN [facility] [address] [place] [address] [phone] Nurse Practitioner Interventional Cardiology 12/28/20 Roslyn Gray [facility] [address] [place] [address] [phone] Pharmacist Pharmacist 01/11/21 03/09/21 Jamie Hamlin MD [address] [place] [address] [phone] Assigned Heart and Vascular Provider 02/19/21 07/13/22 Garret Brown, PhD LP [address] [place] [address] 741 [place], [place] [phone] Assigned Behavioral Health Provider 04/23/21 12/28/22 Roslyn Gray [facility] [address] [place] [address] Assigned MTM Pharmacist 10/28/21 02/16/22 Roslyn Gray [facility] [address] [place] [address] [phone] Assigned MTM Pharmacist 02/28/22 07/27/22 documented as of this encounter
--- OUTSIDE RECORDS SUMMARY | 2023-12-11 11:38 | XMS_ITS | Encounter Summary ---
Author Organization [place] Address [address] [place] [address] Care Team Providers Care Oil Heat Technician Name Role Phone Tristan White MD Primary Care Provider [phone] Renea Magdaleno MD Unavailable Unavailab Jamie Hodges MD Unavailable + [phone] Tristan White MD Unavailable +- [phone] Rneea Magdaleno MD Unavailable Unavailab Jamie Hodges MD Unavailable +[phone] Tito Gipson MD Unavailable +[phone] Marlene Rivas APRN [facility] Unavailable +[phone] Roslyn Gray [facility] Unavailable +[phone] Jamie Hamlin MD Unavailable + [phone] Garret Brown PhD LP Unavailable +[phone] Roslyn Gray [facility] Unavailable +[phone] Roslyn Gray [facility] Unavailable +[phone] Encounter Details Date Type Department Care Team (Late st Contact Info) Description 03/09/2020 [facility] Blood and Marrow Transplant Program [address] [address] [facility] Social History Tobacco Use Types Packs/Day Years [...] documented as of this encounter Care Teams Oil Heat Technician Relationship Specialty Start Date End Date Tristan White MD [address] [place] [address] PCP - General Family Practice 11/17/10 Renea Magdaleno MD [address] [place] [address] Internal Medicine 12/09/15 03/20/21 Jamie Hamlin MD [address] [place] [address] Cardiology 05/29/18 Tristan White MD [address] [place] [address] Assigned PCP 02/21/20 Renea Magdaleno MD NO INFO AVAILABLE 05/18/2022 Assigned Cancer Care Provider 03/25/20 03/09/22 Jamie Hamlin MD [address] [place] [address] Assigned Heart and Vascular Provider 03/25/20 01/14/21 Tito Gipson MD [address] [place] [address] Assigned Musculoskeletal Provider 03/25/20 07/09/20 Marlene Rivas, ADVERTISING SUPERVISOR AUTOMOTIVE TIRE TESTING SUPERVISOR [address] [place] [address] 258755 Nurse Practitioner Interventional Cardiology 12/28/20 Roslyn Gray [facility] [address] [place] [address] Pharmacist Pharmacist 01/11/21 03/09/21 Jamie Hamlin MD [address] [place] [address] [phone] Assigned Heart and Vascular Provider 02/19/21 07/13/22 Garret Brown, PhD LP [address] [place] [address] 741 [place], [place] 279425 Assigned Behavioral Health Provider 04/23/21 12/28/22 Roslyn Gray [facility] [address] [phone] Assigned MTM Pharmacist 10/28/21 02/16/22 Roslyn Gray [facility] [address] 595484 Assigned MTM Pharmacist 02/28/22 07/27/22 documented as of this encounter
--- OUTSIDE RECORDS SUMMARY | 2023-12-11 11:38 | XMS_ITS | Encounter Summary ---
Author Organization [place] Address [facility] [place] [address] Care Team Providers Care Varnisher Plasticoater Name Role Phone Tristan White MD Primary Care Provider [phone] Renea Magdaleno MD Unavailable Unavailab Emily Casiano RN Unavailable + [phone] Tristan White MD Unavailable +- [phone] Jamie Hamlin MD Unavailable + [phone] Anusha Guillermo RN Unavailable +[phone] Tristan White MD Unavailable + [phone] Tristan White MD Unavailable +- [phone] Renea Magdaleno MD Unavailable Unavailab Jamie Hodges MD Unavailable + 2 Tito Gipson MD Unavailable +[phone] Marlene Rivas APRN INTERNAL AFFAIRS 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 Unavailable +[phone] Roslyn Gray [facility] Unavailable +1- Jaime Hamlin MD Unavailable + 2 Garret Brown PhD LP Unavailable +[phone] Roslyn Gray [facility] Unavailable +1- Roslyn Gray [facility] Unavailable +06-08 Encounter Details Date Type Department Care Team (Late st Contact Info) Description 07/11/2017 [facility] Blood and Marrow Transplant Program [address] [phone] Renea Magdaleno MD NO INFO AVAILABLE 05/18/2022 [...] documented as of this encounter Care Teams Varnisher Plasticoater Relationship Specialty Start Date End Date Tristan White MD [address] [place] [address] PCP - General Family Practice 11/17/10 Tristan White MD [address] [place] [address] PCP - Assigned PCP 12/20/13 08/05/18 Renea Magdaleno MD [address] [place] [address] Internal Medicine 12/09/15 03/20/21 Emily Segura, RN Nurse Coordinator Hematology & Oncology 12/09/15 07/09/18 Jamie Hamlin MD [address] [place] [address] Cardiology 05/29/18 Anusha Guillermo, RN Nurse Coordinator Hematology & Oncology 07/10/18 01/05/19 Tristan White MD [address] [phone] Assigned PCP 12/20/13 02/20/20 Tristan White MD [address] [facility] [address] [place] [address] Assigned PCP 02/21/20 Renea Magdaleno MD NO INFO AVAILABLE 05/18/2022 Assigned Cancer Care Provider 03/25/20 03/09/22 Jamie Hamlin MD [address] [place] [address] [phone] Assigned Heart and Vascular Provider 03/25/20 01/14/21 Tito Gipson MD [address] [place] [address] 125125 Assigned Musculoskeletal Provider 03/25/20 07/09/20 Marlene Rivas, DOOR INSTALLER INTERNAL AFFAIRS 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 [address] [place] [address] [phone] Nurse Practitioner Interventional Cardiology 12/28/20 Roslyn Gray [facility] [address] [place] [address] [phone] Pharmacist Pharmacist 01/11/21 03/09/21 Jamie Hamlin MD [address] [place] [address] 155295 Assigned Heart and Vascular Provider 02/19/21 07/13/22 Garret Brown, PhD LP [address] [place] [place] [address] 741 [place] [address] Assigned Behavioral Health Provider 04/23/21 12/28/22 Roslyn Gray [facility] [address] [place] [address] Assigned MTM Pharmacist 10/28/21 02/16/22 Roslyn Gray [facility] [address] [place] [address] Assigned MTM Pharmacist 02/28/22 07/27/22 documented as of this encounter
--- OUTSIDE RECORDS SUMMARY | 2023-12-11 11:38 | XMS_ITS | Encounter Summary ---
Author Organization [place] Address [address] [facility] [place] [address] Care Team Providers Care Timber Bucker Name Role Phone Tristan White MD Primary Care Provider [phone] Renea Magdaleno MD Unavailable Unavailab Emily Casiano RN Unavailable + [phone] Tristan White MD Unavailable +- [phone] Jamie Hamlin MD Unavailable + [phone] Anusha Guillermo RN Unavailable +[phone] Tristan White MD Unavailable +- [phone] Tristan White MD Unavailable +- [phone] Renea Magdaleno MD Unavailable Unavailab Jamie Hodges MD Unavailable + 2 Tito Gipson MD Unavailable +[phone] Marlene Rivas APRN VIDEO PRODUCER Unavailable + [phone] Roslyn Gray [facility] Unavailable +1- Jamie Hamlin MD Unavailable + 2 Garret Brown PhD LP Unavailable +[phone] Roslyn Gray [facility] Unavailable +1- Roslyn Gray [facility] Unavailable +1- Encounter Details Date Type Department Care Team (Late st Contact Info) Description 03/17/2018 [facility] [address] [place] [phone] Doni Pereyra Social History Tobacco Use Types [...] documented as of this encounter Care Teams Timber Bucker Relationship Specialty Start Date End Date Tristan White MD [address] [place] [address] PCP - General Family Practice 11/17/10 Tristan White MD [address] [place] [address] PCP - Assigned PCP 12/20/13 08/05/18 Renea Magdaleno MD [address] [place] [address] Internal Medicine 12/09/15 03/20/21 Emily Segura, CHRISTOPHER Nurse Coordinator Hematology & Oncology 12/09/15 07/09/18 Jamie Hamlin MD [address] [place] [address] Cardiology 05/29/18 Anusha Guillermo, CHRISTOPHER Nurse Coordinator Hematology & Oncology 07/10/18 01/05/19 Tristan White MD [address] [place] [address] Assigned PCP 12/20/13 02/20/20 Tristan White MD [address] [place] [address] Assigned PCP 02/21/20 Renea Magdaleno MD NO INFO AVAILABLE 05/18/2022 Assigned Cancer Care Provider 03/25/20 03/09/22 Jamie Hamlin MD [address] [place] [address] 165935 Assigned Heart and Vascular Provider 03/25/20 01/14/21 Tito Gipson MD [address] [place] [address] 397755 Assigned Musculoskeletal Provider 03/25/20 07/09/20 Marlene Rivas, BUSINESS ETHICS PROFESSOR VIDEO PRODUCER [address] [place] [address] [phone] Nurse Practitioner Interventional Cardiology 12/28/20 Roslyn Gray [facility] [address] [place], [place] 7[address] Pharmacist Pharmacist 01/11/21 03/09/21 Jamie Hamlin MD [address] [place] [address] [phone] Assigned Heart and Vascular Provider 02/19/21 07/13/22 Garret Brown, PhD LP [facility] [address] [place] [address] Assigned Behavioral Health Provider 04/23/21 12/28/22 Roslyn Gray [facility] [address] [place] [address] [phone] Assigned MTM Pharmacist 10/28/21 02/16/22 Roslyn Gray [facility] [address] [phone] Assigned MTM Pharmacist 02/28/22 07/27/22 documented as of this encounter
--- OUTSIDE RECORDS SUMMARY | 2023-12-11 11:38 | XMS_ITS | Encounter Summary ---
Author Organization [place] Address [address] [place] [address] Care Team Providers Care Cargo Handler Name Role Phone Tristan White MD Primary Care Provider [phone] Renea Magdaleno MD Unavailable Unavailab Jamie Hodges MD Unavailable + 2 Tristan White MD Unavailable + [phone] Tristan White MD Unavailable +- [phone] Renea Magdaleno MD Unavailable Unavailab Jamie Hodges MD Unavailable + [phone] Tito Gipson MD Unavailable + [phone] Marlene Rivas APRN DENTAL INSTRUMENT MAKER Unavailable +[phone] Roslyn Gray [facility] Unavailable +1- Jamie Hamlin MD Unavailable + [phone] Garret Brown PhD LP Unavailable +[phone] Roslyn Gray [facility] Unavailable +1- Roslyn Gray [facility] Unavailable +06-08 Encounter Details Date Type Department Care Team (Late st Contact Info) Description 11/03/2019 [facility] Blood and Marrow Transplant Program [address] [address] Doni Pereyra Social History Tobacco [...] have Coronavirus / COVID-19? No / Unsure 10/29/2019 3:38 PM CDT documented as of this encounter Plan of Treatment Not on file documented as of this encounter Visit Diagnoses Not on filedocumented in this encounter Additional Health Concerns Assessment Noted Time PHQ-9 Depression Total Score: 9 09/23/19 17 7:05 AM CDT documented as of this encounter Care Teams Cargo Handler Relationship Specialty Start Date End Date Tristan White MD [address] [place] [address] PCP - General Family Practice 11/17/10 Renea Magdaleno MD [address] [place] [address] Internal Medicine 12/09/15 03/20/21 Jamie Hamlin MD [address] [place] [address] MD Cardiology 05/29/18 Tristan White MD [address] [place] [address] Assigned PCP 12/20/13 02/20/20 Tristan White MD [address] [place] [address] Assigned PCP 02/21/20 Renea Magdaleno MD NO INFO AVAILABLE 05/18/2022 Assigned Cancer Care Provider 03/25/20 03/09/22 Jamie Hamlin MD [address] [place] [address] [phone] Assigned Heart and Vascular Provider 03/25/20 01/14/21 Tito Gipson MD [address] [place] [address] [phone] Assigned Musculoskeletal Provider 03/25/20 07/09/20 Marlene Rivas APRN [facility] [address] [place] [address] [phone] Nurse Practitioner Interventional Cardiology 12/28/20 Roslyn Gray [facility] [address] [place] [address] Pharmacist Pharmacist 01/11/21 03/09/21 Jamie Hamlin MD [address] [place] [address] 111505 Assigned Heart and Vascular Provider 02/19/21 07/13/22 Garret Brown, PhD LP [address] [place] [address] [place] [address] 186325 Assigned Behavioral Health Provider 04/23/21 12/28/22 Roslyn Gray [facility] [address] [place] [address] [phone] Assigned MTM Pharmacist 10/28/21 02/16/22 Roslyn Gray, [facility] [address] [place] [address] [address] Assigned MTM Pharmacist 02/28/22 07/27/22 documented as of this encounter
--- OUTSIDE RECORDS SUMMARY | 2023-12-11 11:38 | XMS_ITS | Encounter Summary ---
Author Organization [place] Address [address] [place] [address] Care Team Providers Care Electronic Calibration Technician Name Role Phone Tristan White MD Primary Care Provider [phone] Renea Magdaleno MD Unavailable Unavailab Jamie Hodges MD Unavailable + Tristan White MD Unavailable + [phone] Tristan White MD Unavailable +- [phone] Renea Magdaleno MD Unavailable Unavailab Jamie Hodges MD Unavailable + 2 Tito Gipson MD Unavailable +[phone] Marlene Rivas APRN WIRELESS OPERATOR Unavailable +[phone] Roslyn Gray [facility] Unavailable +1- Jamie Hamlin MD Unavailable + Garret Brown PhD LP Unavailable +[phone] Roslyn Gray [facility] Unavailable +1- Roslyn Gray [facility] Unavailable +06-08 Encounter Details Date Type Department Care Team (Late st Contact Info) Description 01/28/2019 [facility] Blood and Marrow Transplant Program [address] [address] Renea Magdaleno MD NO INFO [...] documented as of this encounter Care Teams Electronic Calibration Technician Relationship Specialty Start Date End Date Tristan White MD [address] [place] [phone] PCP - General Family Practice 11/17/10 Renea Magdaleno MD [address] [place] [address] Internal Medicine 12/09/15 03/20/21 Jamie Hamlin MD [address] [place] [phone] Cardiology 05/29/18 Tristan White MD [address] [place] [address] Assigned PCP 12/20/13 02/20/20 Tristan White MD [address] [place] [address] Assigned PCP 02/21/20 Renea Magdaleno MD NO INFO AVAILABLE 05/18/2022 Assigned Cancer Care Provider 03/25/20 03/09/22 Jamie Hamlin MD [address] [place] [address] Assigned Heart and Vascular Provider 03/25/20 01/14/21 Tito Gipson MD [address] [place] [address] 43685 Assigned Musculoskeletal Provider 03/25/20 07/09/20 Marlene Rivas APRN [facility] [address] [place] [address] [phone] Nurse Practitioner Interventional Cardiology 12/28/20 Roslyn Gray [facility] [address] [place] [address] [phone] Pharmacist Pharmacist 01/11/21 03/09/21 Jamie Hamlin MD [address] [place] [address]175 Assigned Heart and Vascular Provider 02/19/21 07/13/22 Garret Brown, PhD LP [address] [place] [address] [place] [address] [phone] Assigned Behavioral Health Provider 04/23/21 12/28/22 Roslyn Gray [facility] [address] [place], [place] [address] [address] [phone] Assigned MTM Pharmacist 10/28/21 02/16/22 Roslyn Gray [facility] [address] [address] Assigned MTM Pharmacist 02/28/22 07/27/22 documented as of this encounter
--- OUTSIDE RECORDS SUMMARY | 2023-12-11 11:38 | XMS_ITS | Encounter Summary ---
Author Organization [facility] Address [address] [place] [address] Care Team Providers Care Hourly Sales Staff Name Role Phone Tristan White MD Primary Care Provider [phone] Renea Magdaleno MD Unavailable Unavailab Tristan Triana MD Unavailable +- [phone] Jamie Hamlin MD Unavailable + [phone] Anusha Guillermo RN Unavailable +[phone] Tristan White MD Unavailable +- [phone] Tristan White MD Unavailable +- [phone] Renea Magdaleno MD Unavailable Unavailab Jamie Hodges MD Unavailable + [phone] Tito Gipson MD Unavailable +[phone] Marlene Rivas APRN DEGREASER OPERATOR Unavailable +- [phone] Roslyn Gray [facility] Unavailable +1- Jamie Hamlin MD Unavailable + [phone] Garret Brown PhD LP Unavailable +[phone] Roslyn Gray [facility] Unavailable +1- Roslyn Gray [facility] Unavailable +06-08 Encounter Details Date Type Department Care Team (Late st Contact Info) Description 07/30/2018 [facility] Blood and Marrow Transplant Program [place] [phone] Renea Magdaleno MD NO INFO AVAILABLE 05/18/2022 Social History Tobacco Use Types Packs/Day Years Used Date Smoking Tobacco: Never Smokeless Tobacco: Never Alcohol Use Standard Drinks/Week Comments No 0 (1 standard drink = 0.6 oz pur e alcohol) PHQ-2 Answer Date Recorded PHQ-2 Score 1 06/10/2018 Sex and Gender Information Value Date Recorded [...] documented as of this encounter Care Teams Hourly Sales Staff Relationship Specialty Start Date End Date Tristan White MD [address] [place] [phone] PCP - General Family Practice 11/17/10 Tristan White MD [address] [place] [address] PCP - Assigned PCP 12/20/13 08/05/18 Renea Magdaleno MD [address] [place] [address] Internal Medicine 12/09/15 03/20/21 Jamie Hamlin MD [address] [place] [phone] Cardiology 05/29/18 Anusha Guillermo, RN Nurse Coordinator Hematology & Oncology 07/10/18 01/05/19 Tristan White MD [address] [place] [address] Assigned PCP 12/20/13 02/20/20 Tristan White MD [address] [place] [phone] Assigned PCP 02/21/20 Renea Magdaleno MD NO INFO AVAILABLE 05/18/2022 Assigned Cancer Care Provider 03/25/20 03/09/22 Jamie Hamlin MD [address] [place] [address] [phone] Assigned Heart and Vascular Provider 03/25/20 01/14/21 Tito Gipson MD [address] [place] [address] [phone] Assigned Musculoskeletal Provider 03/25/20 07/09/20 Marlene Rivas APRN DEGREASER OPERATOR [address] [place] [address] [phone] Nurse Practitioner Interventional Cardiology 12/28/20 Roslyn Gray [facility] [address] [place], [place] [phone] Pharmacist Pharmacist 01/11/21 03/09/21 Jamie Hamlin MD [address] [place] [address] [phone] Assigned Heart and Vascular Provider 02/19/21 07/13/22 Garret Brown, PhD LP [address] [facility] [address] [place] [address] Assigned Behavioral Health Provider 04/23/21 12/28/22 Roslyn Gray [facility] [address] [place] [address] [phone] Assigned MTM Pharmacist 10/28/21 02/16/22 Roslyn Gray [facility] [address] [place] [address] [phone] Assigned MTM Pharmacist 02/28/22 07/27/22 documented as of this encounter
--- OUTSIDE RECORDS SUMMARY | 2023-12-11 11:38 | XMS_ITS | Encounter Summary ---
Author Organization [place] Address [address] [place] [address] Care Team Providers Care Change Manager Name Role Phone Tristan White MD Primary Care Provider +[phone] Renea Magdaleno MD Unavailable Unavailab Jamie Hodges MD Unavailable + Tristan White MD Unavailable + [phone] Tristan White MD Unavailable + [phone] Renea Magdaleno MD Unavailable Unavailab Jamie Hodges MD Unavailable + 2 Tito Gipson MD Unavailable +[phone] Marlene Rivas APRN [facility] Unavailable +[phone] Roslyn Gray [facility] Unavailable +1- Jamie Hamlin MD Unavailable + Garret Brown PhD LP Unavailable +[phone] Roslyn Gray [facility] Unavailable +1- Roslyn Gray [facility] Unavailable +06-08 Encounter Details Date Type Department Care Team (Latest Contact Info) Description 02/12/2020 Historic Results Social History Tobacco Use Types Packs/Day Years [...] have Coronavirus / COVID-19? No / Unsure 02/12/2020 9:21 AM CDT documented as of this encounter Plan of Treatment Not on file documented as of this encounter Visit Diagnoses Not on filedocumented in this encounter Additional Health Concerns Assessment Noted Time PHQ-9 Depression Total Score: 020 9:42 AM CDT documented as of this encounter Care Teams Change Manager Relationship Specialty Start Date End Date Tristan White MD [address] [place] [phone] PCP - General Family Practice 11/17/10 Renea Magdaleno MD [address] [place] [address] Internal Medicine 12/09/15 03/20/21 Jamie Hamlin MD [address] [place] [address] Cardiology 05/29/18 Tristan White MD [address] [place] [address] Assigned PCP 12/20/13 02/20/20 Tristan White MD [address] [place] [address] Assigned PCP 02/21/20 Renea Magdaleno MD NO INFO AVAILABLE 05/18/2022 Assigned Cancer Care Provider 03/25/20 03/09/22 Jamie Hamlin MD [address] [place] [address] Assigned Heart and Vascular Provider 03/25/20 01/14/21 Tito Gipson MD [address] [place] [address] Assigned Musculoskeletal Provider 03/25/20 07/09/20 Marlene Rivas APRN [facility] [address] [place] [address] [phone] Nurse Practitioner Interventional Cardiology 12/28/20 Roslyn Gray [facility] [address] [place] [address] [phone] Pharmacist Pharmacist 01/11/21 03/09/21 Jamie Hamlin MD [address] [place] [address] Assigned Heart and Vascular Provider 02/19/21 07/13/22 Garret Brown, PhD LP [address] [place] [address] [place] [address] [phone] Assigned Behavioral Health Provider 04/23/21 12/28/22 Roslyn Gray [facility] [address] [place] [address] [phone] Assigned MTM Pharmacist 10/28/21 02/16/22 Roslyn Gray [facility] [address] [place] [address] Assigned MTM Pharmacist 02/28/22 07/27/22 documented as of this encounter
--- OUTSIDE RECORDS SUMMARY | 2023-12-11 11:38 | XMS_ITS | Encounter Summary ---
Author Organization [place] Address [address] [place] [address] Care Team Providers Care Firer Diesel Locomotive Name Role Phone Tristan White MD Primary Care Provider [phone] Renea Magdaleno MD Unavailable Unavailab Jamie Hodges MD Unavailable + Tristan White MD Unavailable + [phone] Tristan White MD Unavailable +- [phone] Renea Magdaleno MD Unavailable Unavailab Jamie Hodges MD Unavailable + [phone] Tito Gipson MD Unavailable + [phone] Marlene Rivas APRN DRESS OPERATOR Unavailable +[phone] Roslyn Gray [facility] Unavailable +1- Jamie Hamlin MD Unavailable + [phone] Garret Brown PhD LP Unavailable +[phone] Roslyn Gray [facility] Unavailable +1- Roslyn Gray [facility] Unavailable +- Encounter Details Date Type Department Care Team (Late st Contact Info) Description 05/14/2019 [facility] Blood and Marrow Transplant Program [address] [address] [place] Social History Tobacco Use Types Packs/Day Years [...] documented as of this encounter Care Teams Firer Diesel Locomotive Relationship Specialty Start Date End Date Tristan White MD [address] [place] [phone] PCP - General Family Practice 11/17/10 Renea Magdaleno MD [address] [place] [address] Internal Medicine 12/09/15 03/20/21 Jamie Hamlin MD [address] [place] [address] Cardiology 05/29/18 Tristan White MD [address] [place] [address] Assigned PCP 12/20/13 02/20/20 Tristan White MD [address] [place] [address] Assigned PCP 02/21/20 Renea Magdaleno MD NO INFO AVAILABLE 05/18/2022 Assigned Cancer Care Provider 03/25/20 03/09/22 Jamie Hamlin MD [address] [place] [address] Assigned Heart and Vascular Provider 03/25/20 01/14/21 Tito Gipson MD [address] [place] [address] 12[address] Assigned Musculoskeletal Provider 03/25/20 07/09/20 Marlene Rivas APRN [facility] [address] [place] [address]37 Nurse Practitioner Interventional Cardiology 12/28/20 Roslyn Gray [facility] [address] [place] [address] [phone] Pharmacist Pharmacist 01/11/21 03/09/21 Jamie Hamlin MD [address] [place] [address] Assigned Heart and Vascular Provider 02/19/21 07/13/22 Garret Brown, PhD LP [address] [place] [address] [place] [address] [phone] Assigned Behavioral Health Provider 04/23/21 12/28/22 Roslyn Gray [facility] [address] [place] [address] Assigned MTM Pharmacist 10/28/21 02/16/22 Roslyn Gray [facility] [address] [place] [address] [phone] Assigned MTM Pharmacist 02/28/22 07/27/22 documented as of this encounter
--- OUTSIDE RECORDS SUMMARY | 2023-12-11 11:38 | XMS_ITS | Encounter Summary ---
Author Organization [facility] Address [address] [facility] [place] [address] Care Team Providers Care Archivist Military History Name Role Phone Tristan White MD Primary Care Provider [phone] Renea Magdaleno MD Unavailable Unavailab Jamie Hodges MD Unavailable + Tristan White MD Unavailable + [phone] Tristan White MD Unavailable +- [phone] Renea Magdaleno MD Unavailable Unavailab Jamie Hodges MD Unavailable + 2 Tito Gipson MD Unavailable +[phone] Marlene Rivas APRN DRYWALL PROFESSIONAL Unavailable +[phone] Roslyn Gray [facility] Unavailable +1- Jamie Hamlin MD Unavailable + [phone] Garret Brown PhD LP Unavailable +[phone] Roslyn Gray [facility] Unavailable +1- Roslyn Gray [facility] Unavailable +1- Reason for Visit * Reason Comments Medication Refill Encounter Details Date Type Department Care Team (Late st Contact Info) Description 01/01/2020 Refill [facility] [address] [place] [address] 700 [place] [address] Tristan White MD [address] [place] [address] Medication Refill Social History Tobacco Use Types [...] encounter Miscellaneous Notes * Telephone Encounter - Markie Villasenor RN - 01/07/2020 10:38 AM CDT Medication is being filled for 1 time refill only due to: Patient needs to be seen because it has been more than one year since last visit. Team to please call patient and schedule medication recheck appointment. Thank you. Markie Villasenor RN, BSN, PHN documented in this encounter Plan of Treatment Not on file documented as of this encounter Visit Diagnoses Diagnosis Type 2 diabetes mellitus without complication, without long-term current use of insulin (H) Hyperlipidemia LDL goal <70 Other and unspecified hyperlipidemia documented in this encounter Additional Health Concerns Assessment Noted Time PHQ-9 Depression Total Score: 9 09/23/19 17 7:05 AM CDT documented as of this encounter Care Teams Archivist Military History Relationship Specialty Start Date End Date Tristan White MD [address] [place] [address] PCP - General Family Practice 11/17/10 Renea Magdaleno MD [address] [place] [address] Internal Medicine 12/09/15 03/20/21 Jamie Hamlin MD [address] [place] [address] Cardiology 05/29/18 Tristan White MD [address] [place] [address] Assigned PCP 12/20/13 02/20/20 Tristan White MD [address] [place] [address] Assigned PCP 02/21/20 Renea Magdaleno MD NO INFO AVAILABLE 05/18/2022 Assigned Cancer Care Provider 03/25/20 03/09/22 Jamie Hamlin MD [address] [place] [address] 441105 Assigned Heart and Vascular Provider 03/25/20 01/14/21 Tito Gipson MD [address] [place] [address] [phone] Assigned Musculoskeletal Provider 03/25/20 07/09/20 Marlene Rivas, LISW DRYWALL PROFESSIONAL [address] [place] [address] Nurse Practitioner Interventional Cardiology 12/28/20 Roslyn Gray [facility] [address] [place], [place] 220[address] Pharmacist Pharmacist 01/11/21 03/09/21 Jamie Hamlin MD [address] [place] [address]10 Assigned Heart and Vascular Provider 02/19/21 07/13/22 Garret Brown, PhD LP [address] [place] [address] 741 [place] [address] Assigned Behavioral Health Provider 04/23/21 12/28/22 Roslyn Gray [facility] [address] [place] [address] Assigned MTM Pharmacist 10/28/21 02/16/22 Roslyn Gray [facility] [address] [place] [address] Assigned MTM Pharmacist 02/28/22 07/27/22 documented as of this encounter
--- OUTSIDE RECORDS SUMMARY | 2023-12-11 11:38 | XMS_ITS | Encounter Summary ---
Author Organization [facility] Address [address] [place] [address]. [place] [address] Care Team Providers Care Creel Hand Name Role Phone Tristan White MD Primary Care Provider [phone] Renea Magdaleno MD Unavailable Unavailab Jamie Hodges MD Unavailable + [phone] Anusha Guillermo RN Unavailable +[phone] Tristan White MD Unavailable +-[phone] Tristan White MD Unavailable +[phone] Renea Magdaleno MD Unavailable Unavailab Jamie Hodges MD Unavailable + [phone] Tito Gipson MD Unavailable + [phone] Marlene Rivas APRN FAMILY MEDICINE PHYSICIAN ASSISTANT Unavailable +- [phone] Roslyn Gray [facility] Unavailable +1- Jamie Hamlin MD Unavailable + [phone] Garret Brown PhD LP Unavailable +[phone] Roslyn Gray [facility] Unavailable +1- Roslyn Gray [facility] Unavailable +06-08 Reason for Visit * Reason Onset Date Comments Refill Request 08/29/2018 metFORMIN HCL 10 00 MG TABS 1000 TAB Encounter Details Date Type Department Care Team (Late st Contact Info) Description 08/29/[address] [place] [phone] Tristan White MD [address] [place] [phone] Refill Request (metFORMIN HCL 1000 MG TABS 1000 TAB) Social History Tobacco Use Types Packs/Day Years [...] encounter Miscellaneous Notes * Telephone Encounter - Abril Park RN - 08/29/2018 10:11 AM CDT Pt has appt for Friday 09/01 with PCP. Medication refill added to appt notes. Abril Park RN [facility] * Telephone Encounter - Frederick Jamaal - 08/29/2018 9:54 AM CDT Requested Prescriptions Pending Prescriptions Disp Refills ??? metFORMIN (GLUCOPHAGE) 1000 MG tablet [Pharmacy Med Name: metFORMIN HCL 1000 MG TABS 1000 TAB] 60 tablet 0 Last Written Prescription Date: 08/06/2018 Last Fill Quantity: 60, # refills: 0 Last office visit: 01/15/2018 with prescribing provider: 01/15/2018 Future Office Visit: Next 5 appointments (look out 90 days) Sep 01, 2018 9:00 AM CDT Office Visit with Tristan White MD [facility] [address] [place] [address] 700 [facility] [phone] Sig: TAKE 1 TABLET BY MOUTH TWICE A DAY WITH MEALS Biguanide Agents Failed - 08/29/2018 9:17 AM Failed - Patient has documented LDL within the past 12 mos. Recent Labs Lab Test 02/27/17 1429 LDL 2 Failed - Patient has had a Microalbumin in the past 15 mos. Recent Labs Lab Test 02/27/17 0855 MICROL 14 UMALCR 7.14 Passed - Blood pressure less than 140/90 in past 6 months BP Readings from Last 3 Encounters: 07/29/18 126/78 07/14/18 129/77 02/24/18 134/76 Passed - Patient is age 10 or older Passed - Patient has documented A1c within the specified period of time. If HgbA1C is 8 or greater, it needs to be on file within the past 3 months. If less than 8, must beon file within the past 6 months. Recent Labs Lab Test 07/29/18 1140 A1C 7.4* Passed - Patient's CR is NOT>1.4 OR Patient's EGFR is NOT<45 within past 12 mos. Recent Labs Lab Test 07/29/18 1140 GFRESTIMATED 85 GFRESTBLACK >90 Recent Labs Lab Test 07/29/18 1140 CR 0.94 Passed - Patient does NOT have a diagnosis of CHF. Passed - Medication is active on med list Passed - Recent (6 mo) or future [...] documented as of this encounter Care Teams Creel Hand Relationship Specialty Start Date End Date Tristan White MD [address] [place] [address] PCP - General Family Practice 11/17/10 Renea Magdaleno MD [address] [place] [address] Internal Medicine 12/09/15 03/20/21 Jamie Hamlin MD [address] [place] [address] Cardiology 05/29/18 Anusha Guillermo, RN Nurse Coordinator Hematology & Oncology 07/10/18 01/05/19 Tristan White MD [address] [phone] Assigned PCP 12/20/13 02/20/20 Tristan White MD [address] [phone] Assigned PCP 02/21/20 Renea Magdaleno MD NO INFO AVAILABLE 05/18/2022 Assigned Cancer Care Provider 03/25/20 03/09/22 Jamie Hamlin MD [address] [place] [address] [phone] Assigned Heart and Vascular Provider 03/25/20 01/14/21 Tito Gipson MD [address] [place] [address] [phone] Assigned Musculoskeletal Provider 03/25/20 07/09/20 aMrlene Rivas APRN FAMILY MEDICINE PHYSICIAN ASSISTANT [address] [place] [address] [phone] Nurse Practitioner Interventional Cardiology 12/28/20 Roslyn Gray [facility] [address] [place] [address] [phone] Pharmacist Pharmacist 01/11/21 03/09/21 Jamie Hamlin MD [address] [place] [address] Assigned Heart and Vascular Provider 02/19/21 07/13/22 Garret Brown, PhD LP [address] [place] [address] 741 [place], [place] [phone] Assigned Behavioral Health Provider 04/23/21 12/28/22 Roslyn Gray [facility] [address] [place] [address] [phone] Assigned MTM Pharmacist 10/28/21 02/16/22 Roslyn Gray [facility] [address] [place] [address] [phone] Assigned MTM Pharmacist 02/28/22 07/27/22 documented as of this encounter
--- OUTSIDE RECORDS SUMMARY | 2023-12-11 11:38 | XMS_ITS | Encounter Summary ---
Author Organization [place] Address [address] [facility] [place] [address] Care Team Providers Care Director Of Community Education Name Role Phone Tristan White MD Primary Care Provider [phone] Renea Magdaleno MD Unavailable Unavailab Emily Casiano RN Unavailable + [phone] Tristan White MD Unavailable [phone] Jamie Hamlin MD Unavailable + [phone] Anusha Guillermo RN Unavailable [phone] Tristan White MD Unavailable [phone] Tristan White MD Unavailable [phone] Renea Magdaleno MD Unavailable Unavailab Jamie Hodges MD Unavailable + [phone] Tito Gipson MD Unavailable +[phone] Marlene Rivas APRN UX INFORMATION ARCHITECT Unavailable + [phone] Roslyn Gray [facility] Unavailable +1- Jamie Hamlin MD Unavailable + 2 Garret Brown PhD LP Unavailable [phone] Roslyn Gray [facility] Unavailable +1- Roslyn Gray [facility] Unavailable +1- Reason for Visit * Reason Onset Date Comments Prior Auth - Medication 09/27/2017 valACYcl ovir (VALTREX) 500 MG tablet Encounter Details Date Type Department Care Team (Late st Contact Info) Description 09/27/2017 Telephone [facility] [address] [place] [address] Renea Magdaleno MD NO INFO AVAILABLE 05/18/2022 Prior Auth - Medication (valACYclovir (VALTREX) 500 MG tablet) Social History Tobacco Use Types [...] encounter Miscellaneous Notes * Telephone Encounter - Deirdre Saldana - 09/27/2017 11:44 AM CDT Images from the original note were not included. Central Prior Authorization Team Routing back to clinic for updated script in chart documented in this encounter Plan of Treatment Not on file documented as of this encounter Visit Diagnoses Not on filedocumented in this encounter Additional Health Concerns Assessment Noted Time PHQ-9 Depression Total Score: 9 09/23/19 17 7:05 AM CDT documented as of this encounter Care Teams Director Of Community Education Relationship Specialty Start Date End Date Tristan White MD [address] [place] [address] PCP - General Family Practice 11/17/10 Tristan White MD [address] [place] [address] PCP - Assigned PCP 12/20/13 08/05/18 Renea Magdaleno MD [address] [place] [address] Internal Medicine 12/09/15 03/20/21 Emily Segura, RN Nurse Coordinator Hematology & Oncology 12/09/15 07/09/18 Jamie Hamlin MD [address] [place] [address] Cardiology 05/29/18 Anusha Guillermo, RN Nurse Coordinator Hematology & Oncology 07/10/18 01/05/19 Tristan White MD [address] [place] [address] Assigned PCP 12/20/13 02/20/20 Tristan White MD [address] [place] [address] Assigned PCP 02/21/20 Renea Magdaleno MD NO INFO AVAILABLE 05/18/2022 Assigned Cancer Care Provider 03/25/20 03/09/22 Jamie Hamlin MD [address] [place] [address] [phone] Assigned Heart and Vascular Provider 03/25/20 01/14/21 Tito Gipson MD [address] [place] [address] [id number] Assigned Musculoskeletal Provider 03/25/20 07/09/20 Marlene Rivas APRN UX INFORMATION ARCHITECT [address] [place] [address] Nurse Practitioner Interventional Cardiology 12/28/20 Roslyn Gray [facility] [address] [place] [phone] Pharmacist Pharmacist 01/11/21 03/09/21 Jamie Hamlin MD [address] [place] [address] Assigned Heart and Vascular Provider 02/19/21 07/13/22 Garret Brown, PhD LP [address] [place] [address] [address] [place] [address] Assigned Behavioral Health Provider 04/23/21 12/28/22 Roslyn Gray [facility] [address] [place] [address] [phone] Assigned MTM Pharmacist 10/28/21 02/16/22 Roslyn Gray [facility] [address] [place] [id number] Assigned MTM Pharmacist 02/28/22 07/27/22 documented as of this encounter
== END 2023-12-11 08:21 | disposition home or self-care (01) ==
LOC: NFLDREF 11:35
PROVIDERS: PCP Internal Medicine; Referring Provider Internal Medicine; Visit Provider Internal Medicine
DX: Z00.00 Encounter for general adult medical examination without abnormal findings (principal); I10 Essential (primary) hypertension; E11.9 Type 2 diabetes mellitus without complications; C91.10 Chronic lymphocytic leukemia of B-cell type not having achieved remission; Z12.5 Encounter for screening for malignant neoplasm of prostate
CPT/HCPCS: 80053; 80061; 82043; 82570; G0103

== ENCOUNTER 2024-04-22 08:46 | Outpatient (CLI) | payer MEDICARE, SELFPAY ==
--- OUTSIDE RECORDS SUMMARY | 2024-04-22 08:50 | XMS_ITS | Encounter Summary ---
Author Organization [place] Address [address] [facility] [place] [address] Care Team Providers Care Cone Former Name Role Phone Tristan White MD Primary Care Provider [phone] Renea Magdaleno MD Unavailable Unavailab Jamie Hodges MD Unavailable + [phone] Tristan White MD Unavailable +- [phone] Renea Magdaleno MD Unavailable Unavailab Marlene Sahu APRN FARMER CASH GRAIN Unavailable [phone] Roslyn Gray [facility] Unavailable [phone] Jamie Hamlin MD Unavailable [phone] Garret Brown PhD LP Unavailable [phone] Roslyn Gray [facility] Unavailable [phone] Roslyn Gray [facility] Unavailable [phone] Encounter Details Date Type Department Care Team (Late st Contact Info) Description 01/25/2021 [facility] Medical Advice [address] [place] [phone] Roslyn Gray, [facility] [address] [facility] [address] [place] [address] Social History Tobacco Use Types Packs/Day Years Used Date Smoking Tobacco: Never Smokeless Tobacco: Never Alcohol Use Standard Drinks/Week Comments No 0 (1 standard drink = 0.6 oz pur e alcohol) PHQ-2 Answer Date Recorded PHQ-2 Score 6 12/16/2020 Sex and Gender Information Value Date Recorded Sex Assigned at Male 11/15/2020 10:44 AM CDT Legal Sex Male 3:09 AM FLOOR LAYER APPRENTICE Gender Identity Male 11/15/2020 10:44 AM CDT [...] documented as of this encounter Care Teams Cone Former Relationship Specialty Start Date End Date Tristan White MD [address] [place] [phone] PCP - General Family Practice 11/17/10 Renea Magdaleno MD [address] [place] [address] Internal Medicine 12/09/15 03/20/21 Jamie Hamlin MD [address] [place] [phone] Cardiology 05/29/18 Tristan White MD [address] [place] [address] Assigned PCP 02/21/20 01/23/24 Renea Magdaleno MD NO INFO AVAILABLE 05/18/2022 Assigned Cancer Care Provider 03/25/20 03/09/22 Marlene Rivas, FIELD ARTILLERY OPERATIONS SPECIALIST [employer] [address] [place] [address] Nurse Practitioner Interventional Cardiology 12/28/20 Roslyn Gray [facility] [address] [place] [phone] Pharmacist Pharmacist 01/11/21 03/09/21 Jamie Hamlin MD [address] [place] [address] [phone] Assigned Heart and Vascular Provider 02/19/21 07/13/22 Garret Brown, PhD LP [address] [place] [address] [address] [place], [place] 793[address] Assigned Behavioral Health Provider 04/23/21 12/28/22 Roslyn Gray [facility] [address] [place] [address] 112174 Assigned MTM Pharmacist 10/28/21 02/16/22 Roslyn Gray [facility] [address] [place] [address] [phone] Assigned MTM Pharmacist 02/28/22 07/27/22 documented as of this encounter
--- OUTSIDE RECORDS SUMMARY | 2024-04-22 08:50 | XMS_ITS | Encounter Summary ---
Author Organization [place] Address [address] [facility] [place] [address] Care Team Providers Care Edge Sander Name Role Phone Tristan White MD Primary Care Provider Jamie Hamlin MD Unavailable Tristan White MD Unavailable [phone] Marlene Rivas APRN [facility] Unavailable [phone] Garret Brown PhD LP Unavailable [phone] Roslyn Gray [facility] Unavailable Encounter Details Date Type Department Care Team (Late st Contact Info) Description 07/18/2022 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 Gender Identity Male 11/15/2020 10:44 AM CDT Sexual Orientation Straight 11/15/2020 10 :44 AM CDT documented as of this encounter Plan of Treatment Not on file documented as of this encounter Visit Diagnoses Not on filedocumented in this encounter Additional Health Concerns Assessment Noted Time PHQ-9 Depression Total Score: 21 021 7:50 AM CDT documented as of this encounter Care Teams Edge Sander Relationship Specialty Start Date End Date Tristan White MD [address] [place] [phone] PCP - General Family Practice 11/17/10 Jamie Hamlin MD [address] [place] [phone] Cardiology 05/29/18 Tristan White MD [address] [place] [address] Assigned PCP 02/21/20 01/23/24 Marlene Rivas, PRESCHOOL DISABILITY TEACHER STRINGED INSTRUMENT TUNER [address] [place], [place] [address] Nurse Practitioner Interventional Cardiology 12/28/20 Garret Brown, PhD LP [address] [facility] [address] [place] [address] Assigned Behavioral Health Provider 04/23/21 12/28/22 Roslyn Gray [facility] [address] [place], [place] [address] Assigned MTM Pharmacist 02/28/22 07/27/22 documented as of this encounter
--- OUTSIDE RECORDS SUMMARY | 2024-04-22 08:50 | XMS_ITS | Encounter Summary ---
Author Organization [place] Address [address] [facility] [place] [address] Care Team Providers Care Binder Technician Name Role Phone Tristan White MD Primary Care Provider [phone] Jamie Hamlin MD Unavailable [phone] Tristan White MD Unavailable [phone] Marlene Rivas APRN [facility] Unavailable [phone] Jamie Hamlin MD Unavailable [phone] Garret Brown PhD LP Unavailable [phone] Roslyn Gray [facility] Unavailable Encounter Details Date Type Department Care Team (Late st Contact Info) Description 05/11/2022 [facility] [address] [place] [address] Reno Li RN Social History [...] AM CDT Legal Sex Male 3:09 AM MEDIA OPERATOR Gender Identity Male 11/15/2020 10:44 AM CDT Sexual Orientation Straight 11/15/2020 10 :44 AM CDT documented as of this encounter Plan of Treatment Not on file documented as of this encounter Visit Diagnoses Not on filedocumented in this encounter Additional Health Concerns Assessment Noted Time PHQ-9 Depression Total Score: 021 7:50 AM CDT documented as of this encounter Care Teams Binder Technician Relationship Specialty Start Date End Date Tristan White MD [address] [place] [phone] PCP - General Family Practice 11/17/10 Jamie Hamlin MD [address] [place] [phone] Cardiology 05/29/18 Tristan White MD [address] [place] [phone] Assigned PCP 02/21/20 01/23/24 Marlene Rivas APRN [facility] [address] [place] [address] Nurse Practitioner Interventional Cardiology 12/28/20 Jamie Hamlin MD [address] [place] [address] [phone] Assigned Heart and Vascular Provider 02/19/21 07/13/22 Garret Brown, PhD LP [address] [place] [address] [address] [place], [place] [phone] Assigned Behavioral Health Provider 04/23/21 12/28/22 Roslyn Gray, [facility] [address] [place], [place] [address] Assigned MTM Pharmacist 02/28/22 07/27/22 documented as of this encounter
--- OUTSIDE RECORDS SUMMARY | 2024-04-22 08:50 | XMS_ITS | Clinical Summary ---
Author Organization [place] Address [address] [place] [address] Care Team Providers Care Machine Repairman Name Role Phone Tristan White MD Primary Care Provider [phone] Jamie Hamlin MD Unavailable Marlene Rivas APRN [employer] ARCH[employer] Unavailable [phone] Allergies Active Allergy Reactions Criticality Noted Date Comments Sulfamethoxazole W-Trimethoprim Rash Medium 12/02 Medications ASPIRIN PO Take 81 mg by mouth daily Active citalopram (CELEXA) 20 MG tabletIndicatio ns:Depression with anxiety Take 0.5 tablets (10 mg) by mouth every evening 30 tablet 5 1 Active losartan (COZAAR) 50 MG tabletIndicatio ns:NICM (nonischemic cardiomyopathy) (H) Take 1 tablet (50 mg) by mouth daily 90 tablet 3 1 Active blood glucose (NO BRAND SPECIFIED) lancets standardIndicat ions:DM type 2, not at goal (H) Use to test blood sugar 2 times daily or as directed. 100 lancet 3 1 Active ONETOUCH VERIO IQ test stripIndication s:DM type 2, not at goal (H) USE TO CHECK BLOOD SUGAR TWICE DAILY OR DIRECTED 200 strip 2 2 Active Lancets (ONETOUCH DELICA PLUS [id number]) MISCIndications :DM type 2, not at goal (H) 1 Device by Percutaneous route 2 times daily (before meals) Reduced refill amt: - call [phone] to schedule appointment 100 each 6 3 Active citalopram (CELEXA) 10 MG tabletIndicatio ns:EREN (generalized anxiety disorder) Take 1 tablet (10 mg) by mouth daily Please schedule overdue appointment to return to 90 day refills [phone] 30 tablet 3 Active metFORMIN (GLUCOPHAGE XR) 500 MG 24 hr tabletIndicatio ns:Type 2 diabetes mellitus with diabetic polyneuropathy, without long-term current use of insulin (H) Take 4 tablets (2,000 mg) by mouth daily (with breakfast) Pat- Reduced refill amt: - call [phone] to schedule appointment/fast ing labs 120 tablet 3 Active atorvastatin (LIPITOR) 20 MG tabletIndicatio ns:Hyperlipidem ia LDL goal <100 Take 1 tablet (20 mg) by mouth daily Pat- Reduced refill amt: - call [phone] to schedule appointment/fast ing labs 30 tablet 3 Active Active Problems Problem Noted Date Diagnosed Date Anxiety with depression 12/18/2020 HTN (hypertension) 01/16/2019 Cardiomyopathy 01/16/2019 Lumbar stenosis 01/15/2019 Fever and neutropenia 08/22/2017 Hairy cell leukemia, in relapse 08/13/2017 Febrile neutropenia 08/13/2017 Neutropenic fever 08/08/2017 Vitamin B12 deficiency (non anemic) 12/16/2016 DM type 2, not at goal 09/22/2016 Type 2 diabetes mellitus wit h diabetic polyneuropathy, without long-term current use of insulin 09/21/2016 Cardiomyopathy, dilated, nonischemic 11/28/2014 LBBB (left bundle branch block) 08/04/2014 Hyperlipidemia LDL goal <100 11/23/2011 Pancytopenia 12/27/2010 Overview (02/04/2013): Problem list name updated by automated process. Provider to review and confirm Imo Update utility CLL (chronic lymphocytic leukemia) 12/08/2010 Hairy cell leukemia 12/08/2010 Numbness of feet Resolved Problems Problem Noted Date Diagnosed Date Resolved Date RENDON (dyspnea on exertion) 08/04/2014 Chest pain 08/03/2014 09/22/2016 Advanced directives, counseling/discussion 12/10/2012 11/18/2023 Overview (12/10/2012): Advance Care Planning: ACP Review and Resources [...] Hepatitis B, Adult 11/26/2008 Influenza (High Dose) Trival ent,PF (Fluzone) 07/29/2018 Influenza (IIV3) PF 06/17/2013,03/19/2011,2008 Influenza Vaccine [...] AM CDT Legal Sex Male 3:09 AM STRIKE PLANNING APPLICATIONS Gender Identity Male 11/15/2020 10:44 AM CDT Sexual Orientation Straight 11/15/2020 10 :44 AM CDT Last Filed Vital Signs Vital Sign Reading Time Taken Comments Blood Pressure 108/63 01/09/2021 10:28 AM CDT Pulse 58 01/09/2021 10:28 AM CDT Temperature 36.1 C (97 F) 12/28/2020 8:48 AM CDT Respiratory Rate 18 [...] SIG 1955 sDNA (Cologuard) 1955 RSV VACCINE (1 - Risk 60-74 years 1-dose series) 2013 DIABETIC FOOT EXAM 01/15/2019 01/15/2018, [...] 12/28/2020, 04/0 11/2020, 03/03/2020, Additional history exists COLONOSCOPY 02/24/2023 02/24/2018, 02/02, 03/10/2015, Additional history exists COLORECTAL CANCER SCREENING 02/24/2023 COVID-19 Vaccine ( season) 2024 02/21/2021, 08/29/2020, 07/28/2020 INFLUENZA VACCINE (#1) 2024 , 02/12/2020, 02/10/2019, Additional history exists ADVANCE CARE [...] - HIM SCAN 05/31/2020 1 2:00 AM STRIKE PLANNING APPLICATIONS ALBUMIN RANDOM URINE QUANTITATIVE Routine 02/12/2020 10:49 AM CDT Type 2 diabetes mellitus without complication, without long-term current use of insulin (H) LIPID REFLEX TO DIRECT LDL PANEL Routine 02/12/2020 10:43 AM CDT Type 2 diabetes mellitus without complication, without long-term current use of insulin (H) COLONOSCOPY Routine 02/24/2018 1:09 PM CDT HEPATITIS C ANTIBODY Routine 08/09/2017 3:55 AM STRIKE PLANNING APPLICATIONS Hairy cell leukemia, in relapse (H) from Last 3 Months or Most Recently Relevant to Health Maintenance Results * (ABNORMAL) Hemoglobin A1c (12/28/2020 10:25 AM CDT) Hemoglobin A1C 9.2(H) 0.0 - 5.6 % 12/29/2020 3:[address] [facility] Comment: Normal <5.7% Prediabetes 5.7-6.4% Diabetes 6.5% or higher Note: Adopted from ADA consensus guidelines. Blood STRUCTURE OF LEFT UPPER LIMB / Unknown Venipuncture / Unknown 12/28/2020 10:25 AM CDT 12/28/2020 10:25 AM CDT Tristan White MD LAB - BLOOD ORDERABLES Fi nal Result RD [facility] [address] [place] [address] Professional [address] [place] [address], [facility] [phone] * (ABNORMAL) Comprehensive metabolic panel (12/28/2020 10:25 [...] 10:25 AM CDT 12/28/2020 10:25 AM CDT us Renea Magdaleno MD LAB - BLOOD ORDERABLES Fin al Result [facility] [address] Lab (no room number, 1st floor of clinic) [place] [address], [facility] [phone] * EYE EXAM - HIM SCAN (05/31/2020 12:00 AM STRIKE PLANNING APPLICATIONS) RETINOPATHY NEGATIVE 05/31/2020 Narrative Kayla Lloyd - 05/31/2020 12:00 AM STRIKE PLANNING APPLICATIONS DIABETIC EYE EXAM [facility] us Provider Outside OTHER Edited Result - Final * Albumin Random Urine Quantitative with Creat Ratio (02/12/2020 10:49 AM CDT) Creatinine Urine 265 mg/dL 02/12/2020 5:56 PM CDT [facility] Albumin Urine mg/L 22 mg/L 02/12/2020 6:05 PM CDT [facility] Albumin Urine mg/g Cr 8.26 0 - 17 mg/g Cr 02/12/2020 6:05 PM CDT [facility] Urine specimen (specimen) 02/12/2020 10:49 AM CDT 02/12/2020 10:50 AM CDT Tristan White MD LAB - URINE ORDERABLES Fi nal Result [facility] [address] [place] [address] * Lipid panel reflex to direct LDL Fasting (02/12/2020 10:43 AM CDT) Cholesterol 114 <200 mg/dL 02/12/2020 4:36 PM CDT [facility] Triglycerides 98 <150 mg/dL 02/12/2020 4:36 PM CDT [facility] Comment:Fasting specimen HDL Cholesterol 55 >39 mg/dL 0 4:36 PM CDT [facility] LDL Cholesterol Calculated 39 <100 mg/dL 02/12/2020 4:36 PM CDT [facility] Comment:Desirable: <100 mg/ dl Non HDL Cholesterol 59 <130 mg/dL 02/12/2020 4:36 PM CDT [facility] Blood specimen (specimen) 02/12/2020 10:43 AM CDT 02/12/2020 10:44 AM CDT us Tristan White MD LAB - BLOOD ORDERABLES Fi nal Result [facility] [address] [place], [place] [address] * COLONOSCOPY (02/24/2018 1:09 PM CDT) [facility]OS[facility] [address] [place] [address] [phone] Endoscopy Department ___ Patient Name: Isaiah Ely Procedure Date: 02/24/2018 1:09 PM Date of : 1955 Admit Type: Outpatient Age: 62 Gender: Male Note Status: Finalized Attending MD: Saumya Up MD Pause for the Cause: performed. Total Sedation Time: 28 minutes of continuous 1:1 bedside monitoring performed. ___ Procedure: Colonoscopy Indications: High risk colon cancer surveillance: Personal history of colonic polyps Providers: Saumya Up MD, Isaiah Nichols RN Referring MD: Tristan White MD Medicines: Midazolam 2 mg IV, Fentanyl 100 micrograms IV Complications: No immediate complications. ___ Procedure: Pre-Anesthesia Assessment: - Prior to the procedure, a History and Physical was performed, and patient medications and allergies were reviewed. The patient is competent. The risks and benefits of the procedure and the sedation options and risks were discussed with the patient. All questions were answered and informed consent was obtained. Patient identification and proposed procedure were verified by the physician and the nurse in the pre-procedure area in the procedure room. Mental Status Examination: alert and oriented. Airway Examination: normal oropharyngeal airway and neck mobility. Respiratory Examination: clear to auscultation. CV Examination: normal. Prophylactic Antibiotics: The patient does not require prophylactic antibiotics. Prior Anticoagulants: The patient has taken no previous anticoagulant or antiplatelet agents. ASA Grade Assessment: II - A patient with mild systemic disease. After reviewing the risks and benefits, the patient was deemed in satisfactory condition to undergo the procedure. The anesthesia plan was to use moderate sedation / analgesia (conscious sedation). Immediately prior to administration of medications, the patient was re-assessed for adequacy to receive sedatives. The heart rate, respiratory rate, oxygen saturations, blood pressure, adequacy of pulmonary ventilation, and response to care were monitored throughout the procedure. The physical status of the patient was re-assessed after the procedure. After obtaining informed consent, the colonoscope was passed under direct vision. Throughout the procedure, the patient's blood pressure, pulse, and oxygen saturations were monitored continuously. The colonoscopy was performed without difficulty. The patient tolerated the procedure well. The quality of the bowel preparation was good. The Colonoscope was introduced through the anus and advanced to the cecum, identified by appendiceal orifice and ileocecal valve. Findings: The perianal and digital rectal examinations were normal. Two sessile polyps were found in the descending colon and cecum. The polyps were less than 5 mm in size. These polyps were removed with a cold biopsy forceps. Resection and retrieval were complete. Non-bleeding internal hemorrhoids were found during retroflexion. The hemorrhoids were mild. Impression: - Two less than 5 mm polyps in the descending colon and in the cecum, removed with a cold biopsy forceps. Resected and retrieved. - Non-bleeding internal hemorrhoids. Recommendation: - Repeat colonoscopy in 3 - 5 years for surveillance based on pathology results. - Discharge patient to home (ambulatory). - Resume previous diet. - Continue present medications. - Await pathology results. - The findings and recommendations were discussed with the patient. Electronically signed by: Saumya Up MD Saumya Up MD 02/24/2018 3:26:54 PM I was physically present for the entire viewing portion of the exam. Signature of teaching physician Saumya Up MD Number of Addenda: 0 Note Initiated On: 02/24/2018 1:09 PM Scope In: Scope Out: RADIOLOGY RESULTS 02/24/2018 1:09 PM CDT us Tristan White MD PROCEDURES Final Res ult RADIOLOGY RESULTS * Hepatitis C antibody (08/09/2017 3:55 AM STRIKE PLANNING APPLICATIONS) Hepatitis C Antibody Nonreactive NR^Nonre active 08/09/2017 12:49 PM STRIKE PLANNING APPLICATIONS [facility] Comment: Assay performance characteristics have not been established for newborns, infants, and children 08/09/2017 3:55 AM STRIKE PLANNING APPLICATIONS 08/09/2017 4:09 AM STRIKE PLANNING APPLICATIONS us Za Snow PA-C LAB - BLOOD ORDERABLES Final Result [address] from Last 3 Months or Most Recently Relevant to Health Maintenance Insurance * Guarantor: Isaiah Ely Account Type Relation to Patient Date of Phone Billing Address Medication Therapy Self [address] [place] [id number] MEDIC[facility] REPLMT Advance Directives For more information, please contact: [phone] * Full Code (Latest Code Status on [...] 12:04 AM 08/08/2017 12:02 PM Care Teams Machine Repairman Relationship Specialty Start Date End Date Tristan White MD [address] [place] [address] PCP - General Family Practice 11/17/10 Jamie Hamlin MD [address] [place] [address] Cardiology 05/29/18 Marlene Rivas APRN [employer] ARCHITECT [address] [place] [address] Nurse Practitioner Interventional Cardiology 12/28/20
--- OUTSIDE RECORDS SUMMARY | 2024-04-22 08:50 | XMS_ITS | Encounter Summary ---
Author Organization [place] Address [address] [facility] [place] [address] Care Team Providers Care Lgsw Name Role Phone Tristan White MD Primary Care Provider [phone] Jamie Hamlin MD Unavailable [phone] Tristan White MD Unavailable [phone] Marlene Rivas APRN [facility] Unavailable [phone] Jamie Hamlin MD Unavailable [phone] Garret Brown PhD LP Unavailable [phone] Roslyn Gray [facility] Unavailable Encounter Details Date Type Department Care Team (Late st Contact Info) Description 06/07/2022 [facility] [address] [place] [address] Adelaida Kendrick RN Social History [...] AM CDT Legal Sex Male 3:09 AM BANK EXAMINER Gender Identity Male 11/15/2020 10:44 AM CDT Sexual Orientation Straight 11/15/2020 10 :44 AM CDT documented as of this encounter Plan of Treatment Not on file documented as of this encounter Visit Diagnoses Not on filedocumented in this encounter Additional Health Concerns Assessment Noted Time PHQ-9 Depression Total Score: 021 7:50 AM CDT documented as of this encounter Care Teams Lgsw Relationship Specialty Start Date End Date Tristan White MD [address] [place] [address] PCP - General Family Practice 11/17/10 Jamie Hamlin MD [address] [place] [address] Cardiology 05/29/18 Tristan White MD [address] [place] [address] Assigned PCP 02/21/20 01/23/24 Marlene Rivas APRN DATA ENTRY ASSOCIATE [address] [place], [place] [id number] Nurse Practitioner Interventional Cardiology 12/28/20 Jamie Hamlin MD [address] [place] [address]1955 Assigned Heart and Vascular Provider 02/19/21 07/13/22 Garret Brown, PhD LP [address] [place] [address] [address] [place], [place] 9[address]25 Assigned Behavioral Health Provider 04/23/21 12/28/22 Roslyn Gray, [facility] [address] [facility] [address] [place], [place] [address] Assigned MTM Pharmacist 02/28/22 07/27/22 documented as of this encounter
--- OUTSIDE RECORDS SUMMARY | 2024-04-22 08:50 | XMS_ITS | Referral Summary ---
Author Organization [employer] Address [address] [place] [address] Care Team Providers Care Law Examiner Name Role Phone Tristan White MD Primary Care Provider [phone] Jamie Hamlin MD Unavailable Marlene Rivas APRN CANAL EQUIPMENT MECHANIC Unavailable [phone] Allergies Active Allergy Reactions Criticality Noted Date [...] 2 2 Active Lancets (ONETOUCH DELICA PLUS [id number]) MISCIndications :DM type 2, not at goal (H) 1 Device by Percutaneous route 2 times daily (before meals) Reduced refill amt: - call [phone] to schedule appointment 100 each 6 3 Active citalopram (CELEXA) 10 MG tabletIndicatio ns:EREN (generalized anxiety disorder) Take 1 tablet (10 mg) by mouth daily Please schedule overdue appointment to return to 90 day refills [phone] 30 tablet 3 Active metFORMIN (GLUCOPHAGE XR) 500 MG 24 hr tabletIndicatio ns:Type 2 diabetes mellitus with diabetic polyneuropathy, without long-term current use of insulin (H) Take 4 tablets (2,000 mg) by mouth daily (with breakfast) Pat- Reduced refill amt: - call [phone] to schedule appointment/fast ing labs 120 tablet 3 Active atorvastatin (LIPITOR) 20 MG tabletIndicatio ns:Hyperlipidem ia LDL goal <100 Take 1 tablet (20 mg) by mouth daily Pat- Reduced refill amt: - call [phone] to schedule appointment/fast ing labs 30 tablet [...] AM CDT Legal Sex Male 3:09 AM EMBALMER APPRENTICE Gender Identity Male 11/15/2020 10:44 AM [...] - HIM SCAN 05/31/2020 1 2:00 AM EMBALMER APPRENTICE ALBUMIN RANDOM URINE QUANTITATIVE Routine 02/12/2020 10:49 AM CDT Type 2 diabetes mellitus without complication, without long-term current use of insulin (H) LIPID REFLEX TO DIRECT LDL PANEL Routine 02/12/2020 10:43 AM CDT Type 2 diabetes mellitus without complication, without long-term current use of insulin (H) COLONOSCOPY Routine 02/24/2018 1:09 PM CDT HEPATITIS C ANTIBODY Routine 08/09/2017 3:55 AM EMBALMER APPRENTICE Hairy cell leukemia, in relapse (H) from [...] AM CDT 12/28/2020 10:25 AM CDT us Tristan White MD LAB - BLOOD ORDERABLES Fi nal Result RD [facility] [address] [facility] [place] [address] [place] [address], [facility] [phone] * (ABNORMAL) Comprehensive metabolic panel (12/28/2020 10:25 [...] CDT Renea Magdaleno MD LAB - BLOOD ORDERABLES Fin al Result OX LABORATORY [facility] [address] Lab (no room number, 1st floor of clinic) [place] [address], [facility] [phone] * EYE EXAM - HIM SCAN (05/31/2020 12:00 AM EMBALMER APPRENTICE) RETINOPATHY NEGATIVE 05/31/2020 Narrative Kayla Lloyd - 05/31/2020 12:00 AM EMBALMER APPRENTICE DIABETIC EYE EXAM [facility] Provider Outside OTHER Edited Result - Final * Albumin Random Urine Quantitative with Creat Ratio (02/12/2020 10:49 AM CDT) Creatinine Urine 265 mg/dL 02/12/2020 5:56 PM CDT [facility] Albumin Urine mg/L 22 mg/L 02/12/2020 6:05 PM CDT [facility] Albumin Urine mg/g Cr 8.26 0 - 17 mg/g Cr 02/12/2020 6:05 PM CDT [facility] Urine specimen (specimen) 02/12/2020 10:49 AM CDT 02/12/2020 10:50 AM CDT Tristan White MD LAB - URINE ORDERABLES Fi nal Result Performing Organization Address [facility]/ZIP Co de Phone Number [facility] [address] [place] [address] * Lipid panel reflex to direct LDL Fasting (02/12/2020 10:43 AM CDT) Pathologist [facility] Cholesterol 114 <200 mg/dL 02/12/2020 4:36 PM CDT [facility] Triglycerides 98 <150 mg/dL 02/12/2020 4:36 PM CDT [facility] Comment:Fasting specimen HDL Cholesterol 55 >39 mg/dL 0 4:36 PM CDT [facility] LDL Cholesterol Calculated 39 <100 mg/dL 02/12/2020 4:36 PM CDT [facility] Comment:Desirable: <100 mg/d l Non HDL Cholesterol 59 <130 mg/dL 02/12/2020 4:36 PM CDT [facility] Blood specimen (specimen) 02/12/2020 10:43 AM CDT 02/12/2020 10:44 AM CDT Tristan White MD LAB - BLOOD ORDERABLES Fi nal Result Performing Organization Address City/[facility]/ZIP Co de Phone Number [facility] [address] [place], [place] [address] * COLONOSCOPY (02/24/2018 1:09 PM CDT) [facility]OSCOPY [facility] [address] [place] [address], [place] [address] [phone] Endoscopy Department ___ Patient Name: Isaiah Ely [...] * Hepatitis C antibody (08/09/2017 3:55 AM EMBALMER APPRENTICE) Hepatitis C Antibody Nonreactive NR^Nonre active 08/09/2017 12:49 PM EMBALMER APPRENTICE [facility] Comment: Assay performance characteristics have not been established for newborns, infants, and children 08/09/2017 3:55 AM EMBALMER APPRENTICE 08/09/2017 4:09 AM EMBALMER APPRENTICE us Za Snow PA-C LAB - BLOOD ORDERABLES Final Result [facility] [address] from Last 3 Months or Most Recently Relevant to Health Maintenance Insurance * Guarantor: Isaiah Ely Account Type Relation to Patient Date of Phone Billing Address Medication Therapy Self [address] [place] [address] [facility] MEDICARE REPLMT Advance Directives For more information, please contact: [phone] * Full Code (Latest Code Status on [...] 12:04 AM 08/08/2017 12:02 PM Care Teams Law Examiner Relationship Specialty Start Date End Date Tristan White MD [address] [place] [address] PCP - General Family Practice 11/17/10 Jamie Hamlin MD [address] [place] [address] Cardiology 05/29/18 Marlene Rivas, GLOBAL TRANSPORTATION MANAGER CANAL EQUIPMENT MECHANIC [address] [place], [place] [address] Nurse Practitioner Interventional Cardiology 12/28/20
--- OUTSIDE RECORDS SUMMARY | 2024-04-22 08:50 | XMS_ITS | Encounter Summary ---
Author Organization [employer] Address [address] [place] [address]. [place] [address] Care Team Providers Care Sales Operations Consultant Name Role Phone Tristan White MD Primary Care Provider [phone] Jamie Hamlin MD Unavailable [phone] Tristan White MD Unavailable [phone] Renea Magdaleno MD Unavailable Unavailab Marlene Sahu APRN [facility] Unavailable [phone] Jamie Hamlin MD Unavailable [phone] Garret Brown PhD Unavailable [phone] Roslyn Gray [facility] Unavailable [phone] Roslyn Gray [facility] Unavailable [phone] Reason for Visit * Reason Comments Medication Refill Encounter Details Date Type Department Care Team (Late st Contact Info) Description 02/04/2022 Refill [facility] [address] [place] [address] Tristan White MD [address] [place] [address] Medication Refill Social History Tobacco Use Types Packs/Day Years Used Date Smoking Tobacco: Never Smokeless Tobacco: Never Alcohol Use Standard Drinks/Week Comments No 0 (1 standard drink = 0.6 oz pur e alcohol) PHQ-2 Answer Date Recorded PHQ-2 Score 6 12/16/2020 Sex and Gender Information Value Date Recorded Sex Assigned at Male 11/15/2020 10:44 AM CDT Legal Sex Male 3:09 AM CIRCULATION ANALYST Gender Identity Male 11/15/2020 10:44 AM CDT [...] documented as of this encounter Care Teams Sales Operations Consultant Relationship Specialty Start Date End Date Tristan White MD [address] [place] [address] PCP - General Family Practice 11/17/10 Jamie Hamlin MD [address] [place] [address] Cardiology 05/29/18 Tristan White MD [address] [place] [address] Assigned PCP 02/21/20 01/23/24 Renea Magdaleno MD NO INFO AVAILABLE 05/18/2022 Assigned Cancer Care Provider 03/25/20 03/09/22 Marlene Rivas, TANNING WHEEL OPERATOR CARROTER [address] [place], [place] [address] Nurse Practitioner Interventional Cardiology 12/28/20 Jamie Hamlin MD [address] [place] [address]47[address] Assigned Heart and Vascular Provider 02/19/21 07/13/22 Garret Brown, PhD LP [address] [place] [address] 741 [place] [address] Assigned Behavioral Health Provider 04/23/21 12/28/22 Roslyn Gray [facility] [address] [place] [address] Assigned MTM Pharmacist 10/28/21 02/16/22 Roslyn Gray [facility] [address] [facility] [address] [place] [address] Assigned MTM Pharmacist 02/28/22 2 documented as of this encounter
--- OUTSIDE RECORDS SUMMARY | 2024-04-22 08:50 | XMS_ITS | Encounter Summary ---
Author Organization [place] Address [address] [place] [address] Care Team Providers Care Certified Surgical Technician Name Role Phone Tristan White MD Primary Care Provider Renea Magdaleno MD Unavailable Unavailab Jamie Hodges MD Unavailable + [phone] Tristan White MD Unavailable [phone] Renea Magdaleno MD Unavailable Unavailab Marlene Sahu APRN SUPERVISOR CEREAL Unavailable [phone] Roslyn Gray [facility] Unavailable [phone] Jamie Hamlin MD Unavailable [phone] Garret Brown PhD LP Unavailable [phone] Roslyn Gray [facility] Unavailable [phone] Roslyn Gray [facility] Unavailable [phone] Encounter Details Date Type Department Care Team (Late st Contact Info) Description 02/17/2021 [facility] Medical Advice 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 Gender Identity Male 11/15/2020 10:44 AM CDT Sexual Orientation Straight 11/15/2020 10 :44 AM CDT documented as of this encounter Plan of Treatment Not on file documented as of this encounter Visit Diagnoses Not on filedocumented in this encounter Additional Health Concerns Assessment Noted Time PHQ-9 Depression Total Score: 21 021 7:50 AM CDT documented as of this encounter Care Teams Certified Surgical Technician Relationship Specialty Start Date End Date Tristan White MD [address] [address] PCP - General Family Practice 11/17/10 Renea Magdaleno MD [address] [place] [phone] Internal Medicine 12/09/15 03/20/21 Jamie Hamlin MD [address] [address] Cardiology 05/29/18 Tristan White MD [address] [place] [address] Assigned PCP 02/21/20 01/23/24 Renea Magdaleno MD NO INFO AVAILABLE 05/18/2022 Assigned Cancer Care Provider 03/25/20 03/09/22 Marlene Rivas, PIER MASTER SUPERVISOR CEREAL [address] [place] [address] Nurse Practitioner Interventional Cardiology 12/28/20 Roslyn Gray [facility] [address] [place] [address] Pharmacist Pharmacist 01/11/21 03/09/21 Jamie Hamlin MD [address] [place] [address] Assigned Heart and Vascular Provider 02/19/21 07/13/22 Garret Brown, PhD LP [address] [place] [address] [address] [place], [place] [address] Assigned Behavioral Health Provider 04/23/21 12/28/22 Roslyn Gray [facility] [address] [place] [address] 321784 Assigned MTM Pharmacist 10/28/21 02/16/22 Roslyn Gray [facility] [address] [place] [address] 944134 Assigned MTM Pharmacist 02/28/22 07/27/22 documented as of this encounter
--- OUTSIDE RECORDS SUMMARY | 2024-04-22 08:50 | XMS_ITS | Encounter Summary ---
Author Organization [place] Address [address] [place] [address]. [place] [address] Care Team Providers Care Interior Specialist Name Role Phone Tristan White MD Primary Care Provider [phone] Jamie Hamlin MD Unavailable [phone] Tristan White MD Unavailable [phone] Renea Magdaleno MD Unavailable Unavailab Marlene Sahu APRN [facility] Unavailable [phone] Jamie Hamlin MD Unavailable [phone] Garret Brown PhD Unavailable [phone] Roslyn Gray [facility] Unavailable [phone] Roslyn Gray [facility] Unavailable [phone] Reason for Visit * Reason Comments Medication Refill Encounter Details Date Type Department Care Team (Late st Contact Info) Description 07/04/2021 Refill [facility] [address] [place] [address] Tristan White MD [address] [place] [address] Medication Refill Social History Tobacco Use Types Packs/Day Years Used Date Smoking Tobacco: Never Smokeless Tobacco: Never Alcohol Use Standard Drinks/Week Comments No 0 (1 standard drink = 0.6 oz pur e alcohol) PHQ-2 Answer Date Recorded PHQ-2 Score 6 12/16/2020 Sex and Gender Information Value Date Recorded Sex Assigned at Male 11/15/2020 10:44 AM CDT 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 Lancets (ONETOUCH DELICA PLUS [id number]) MISC [Pharmacy Med Name: LANCET ONE TCH [...] because: 6 mo f/u Livier Malone RN [facility] E VEHICLE SERVICE ATTENDANT documented in this encounter Plan of [...] documented as of this encounter Care Teams Interior Specialist Relationship Specialty Start Date End Date Tristan White MD [address] [place] [address] PCP - General Family Practice 11/17/10 Jamie Hamlin MD [address] [place] [address] Cardiology 05/29/18 Tristan White MD [address] [facility] [address] [place] [address] Assigned PCP 02/21/20 01/23/24 Renea Magdaleno MD NO INFO AVAILABLE 05/18/2022 Assigned Cancer Care Provider 03/25/20 03/09/22 Marlene Rivas, CROP RANCH HAND TRANSMISSION MAINTENANCE SUPERVISOR [address] [place] [address] 252175 Nurse Practitioner Interventional Cardiology 12/28/20 Jamie Hamlin MD [address] [place] [address] 4740[address] Assigned Heart and Vascular Provider 02/19/21 07/13/22 Garret Brown, PhD LP [address] [place] [address] 741 [place] [address] Assigned Behavioral Health Provider 04/23/21 12/28/22 Roslyn Gray, [facility] [address] [address] Assigned MTM Pharmacist 10/28/21 02/16/22 Roslyn Gray [facility] [address] [address] Assigned MTM Pharmacist 02/28/22 07/27/22 documented as of this encounter
--- OUTSIDE RECORDS SUMMARY | 2024-04-22 08:50 | XMS_ITS | Encounter Summary ---
Author Organization [place] Address [facility] [place] [address] Care Team Providers Care Live In Companion Name Role Phone Tristan White MD Primary Care Provider [phone] Renea Magdaleno MD Unavailable Unavailab Jamie Hodges MD Unavailable [phone] Tristan White MD Unavailable [phone] Renea Magdaleno MD Unavailable Unavailab Jamie Hodges MD Unavailable [phone] Marlene Rivas APRN CPS TEAM LEAD Unavailable [phone] Roslyn Gray [facility] Unavailable [phone] Jamie Hamlin MD Unavailable [phone] Garret Brown PhD LP Unavailable [phone] Roslyn Gray [facility] Unavailable [phone] Roslyn Gray [facility] Unavailable [phone] Reason for Visit * Reason Onset Date Comments Patient Request 01/04/2021 Encounter Details Date Type Department Care Team (Late st Contact Info) Description 01/04/2021 [facility] Medical [facility] [address] [place] [address] Tristan White MD [address] [place] [address] Patient Request Social History Tobacco Use Types Packs/Day Years Used Date Smoking Tobacco: Never Smokeless Tobacco: Never Alcohol Use Standard Drinks/Week Comments No 0 (1 standard drink = 0.6 oz pur e alcohol) PHQ-2 Answer Date Recorded PHQ-2 Score 6 12/16/2020 Sex and Gender Information Value Date Recorded Sex Assigned at Male 11/15/2020 10:44 AM CDT 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 Referral cued Rose Alberto RN [facility] * Telephone Encounter - Rose Alberto RN - 01/04/2021 5:34 PM CDT MyChart message to pt Rose Alberto RN [facility] documented in this encounter Plan of Treatment Not on file documented as of this encounter Visit Diagnoses Diagnosis DM type 2, not at goal (H) Type II or unspecified type diabetes mellitus without mention of complication, uncontrolled documented in this encounter Additional Health Concerns Assessment Noted Time PHQ-9 Depression Total Score: 21 021 7:50 AM CDT documented as of this encounter Care Teams Live In Companion Relationship Specialty Start Date End Date Tristan White MD [address] [place] [address] PCP - General Family Practice 11/17/10 Renea Magdaleno MD [address] [place] [address] Internal Medicine 12/09/15 03/20/21 Jamie Hamlin MD [address] [place] [address] Cardiology 05/29/18 Tristan White MD [address] [place] [address] Assigned PCP 02/21/20 01/23/24 Renea Magdaleno MD NO INFO AVAILABLE 05/18/2022 Assigned Cancer Care Provider 03/25/20 03/09/22 Jamie Hamlin MD 9[address] [place] [address] Assigned Heart and Vascular Provider 03/25/20 01/14/21 Marlene Rivas APRN CPS TEAM LEAD [address] [place] [address] Nurse Practitioner Interventional Cardiology 12/28/20 Roslyn Gray [facility] [address] [place] [address] Pharmacist Pharmacist 01/11/21 03/09/21 Jamie Hamlin MD [address] [place] [address] Assigned Heart and Vascular Provider 02/19/21 07/13/22 Garret Brown, PhD [address] [place] [address] 741 [place] [address] Assigned Behavioral Health Provider 04/23/21 12/28/22 Roslyn Gray [facility] [address] [place] [address] Assigned MTM Pharmacist 10/28/21 02/16/22 Roslyn Gray [facility] [address] [place] [address] Assigned MTM Pharmacist 02/28/22 07/27/22 documented as of this encounter
--- OUTSIDE RECORDS SUMMARY | 2024-04-22 08:50 | XMS_ITS | Encounter Summary ---
Author Organization [place] Address [address] [place] [address]. [place] [address] Care Team Providers Care Senior Investment Analyst Name Role Phone Tristan White MD Primary Care Provider [phone] Jamie Hamlin MD Unavailable [phone] Tristan White MD Unavailable [phone] Renea Magdaleno MD Unavailable Unavailab Marlene Sahu APRN [facility] Unavailable [phone] Jamie Hamlin MD Unavailable [phone] Garret Brown PhD Unavailable [phone] Roslyn Gray [facility] Unavailable [phone] Roslyn Gray [facility] Unavailable [phone] Reason for Visit * Reason Comments Medication Refill Encounter Details Date Type Department Care Team (Late st Contact Info) Description 11/01/2021 Refill [facility] [address] [place] [address] Tristan White MD [address] [place] [address] Medication Refill Social History Tobacco Use Types Packs/Day Years Used Date Smoking Tobacco: Never Smokeless Tobacco: Never Alcohol Use Standard Drinks/Week Comments No 0 (1 standard drink = 0.6 oz pur e alcohol) PHQ-2 Answer Date Recorded PHQ-2 Score 6 12/16/2020 Sex and Gender Information Value Date Recorded Sex Assigned at Male 11/15/2020 10:44 AM CDT 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 Kelly Salvador RN documented in [...] documented as of this encounter Care Teams Senior Investment Analyst Relationship Specialty Start Date End Date Tristan White MD [address] [place] [address] PCP - General Family Practice 11/17/10 Jamie Hamlin MD [address] [place] [address] Cardiology 05/29/18 Tristan White MD [address] [place] [address] Assigned PCP 02/21/20 01/23/24 Renea Magdaleno MD NO INFO AVAILABLE 05/18/2022 Assigned Cancer Care Provider 03/25/20 03/09/22 Marlene Rivas APRN AIRCRAFT DESIGN ENGINEER [address] [place] [address] Nurse Practitioner Interventional Cardiology 12/28/20 Jamie Hamlin MD [address] [place], [place] [address] Assigned Heart and Vascular Provider 02/19/21 07/13/22 Garret Brown, PhD LP [address] [place] [address] 741 [place], [place] [address] Assigned Behavioral Health Provider 04/23/21 12/28/22 Roslyn Gray [facility] [address] [address] Assigned MTM Pharmacist 10/28/21 02/16/22 Roslyn Gray [facility] [address] [address] Assigned MTM Pharmacist 02/28/22 07/27/22 documented as of this encounter
--- OUTSIDE RECORDS SUMMARY | 2024-04-22 08:50 | XMS_ITS | Encounter Summary ---
Author Organization [place] Address [address] [facility] [place] [address] Care Team Providers Care School Bus Driver/Custodian Name Role Phone Tristan White MD Primary Care Provider [phone] Jamie Hamlin MD Unavailable [phone] Tristan White MD Unavailable [phone] Renea Magdaleno MD Unavailable Unavailab Marlene Sahu APRN [facility] Unavailable [phone] Jamie Hamlin MD Unavailable [phone] Garret Brown PhD LP Unavailable [phone] Roslyn Gray [facility] Unavailable [phone] Roslyn Gray [facility] Unavailable [phone] Reason for Visit * Reason Comments Medication Refill metFORMIN (GLUCOPHAG E XR) 500 MG 24 hr tabletAtorvastatin Encounter Details Date Type Department Care Team (Late st Contact Info) Description 12/21/2021 Refill [facility] [address] [place] [address] Tristan White MD [address] [place] [address] Medication Refill (metFORMIN (GLUCOPHAGE XR) [...] AM CDT Legal Sex Male 3:09 AM RADIO COMMUNICATIONS SUPERINTENDENT Gender Identity Male 11/15/2020 10:44 AM CDT [...] documented as of this encounter Care Teams School Bus Driver/Custodian Relationship Specialty Start Date End Date Tristan White MD [address] [place] [address] PCP - General Family Practice 11/17/10 Jamie Hamlin MD [address] [place] [address] Cardiology 05/29/18 Tristan White MD [address] [place] [address] Assigned PCP 02/21/20 01/23/24 Renea Magdaleno MD NO INFO AVAILABLE 05/18/2022 Assigned Cancer Care Provider 03/25/20 03/09/22 Marlene Rivas, RESTAURANT ASSISTANT MANAGER COUNTER INTELLIGENCE TECHNICIAN [address] [place] [address] Nurse Practitioner Interventional Cardiology 12/28/20 Jamie Hamlin MD [address] [address] Assigned Heart and Vascular Provider 02/19/21 07/13/22 Garret Brown, PhD LP [address] [place] [address] [address] [place] [address] Assigned Behavioral Health Provider 04/23/21 12/28/22 Roslyn Gray [facility] [address] [phone] Assigned MTM Pharmacist 10/28/21 02/16/22 Roslyn Gray [facility] [address] [place] [address] [phone] Assigned MTM Pharmacist 02/28/22 07/27/22 documented as of this encounter
--- OUTSIDE RECORDS SUMMARY | 2024-04-22 08:50 | XMS_ITS | Encounter Summary ---
Author Organization [place] Address [address] [place] [address] Care Team Providers Care Presser And Shaper Knitted Goods Name Role Phone Tristan White MD Primary Care Provider [phone] Renea Magdaleno MD Unavailable Unavailab Jamie Hodges MD Unavailable + [phone] Tristan White MD Unavailable +[phone] Renea Magdaleno MD Unavailable Unavailab Jamie Hodges MD Unavailable [phone] Tito Gipson MD Unavailable [phone] Marlene Rivas APRN [facility] Unavailable [phone] Roslyn Gray [facility] Unavailable [phone] Jamie Hamlin MD Unavailable + [phone] Garret Brown PhD LP Unavailable [phone] Roslyn Gray [facility] Unavailable [phone] Roslyn Gray [facility] Unavailable [phone] Encounter Details Date Type Department Care Team (Late st Contact Info) Description 03/09/2020 [facility] Blood and Marrow Transplant Program [address] [address] [facility] Social History Tobacco Use Types Packs/Day Years Used Date Smoking Tobacco: Never Smokeless Tobacco: Never Alcohol Use Standard Drinks/Week Comments No 0 (1 standard drink = 0.6 oz pur e alcohol) PHQ-2 Answer Date Recorded PHQ-2 Score 6 02/12/2020 Sex and Gender Information Value Date Recorded Sex Assigned at Male 11/15/2020 10:44 AM CDT 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 Gender Identity Male 11/15/2020 10:44 AM CDT [...] documented as of this encounter Care Teams Presser And Shaper Knitted Goods Relationship Specialty Start Date End Date Tristan White MD [address] [place] [address] PCP - General Family Practice 11/17/10 Renea Magdaleno MD [address] [place] [address] Internal Medicine 12/09/15 03/20/21 Jamie Hamlin MD [address] [place] [address] MD Cardiology 05/29/18 Tristan White MD [address] [place] [address] Assigned PCP 02/21/20 01/23/24 Renea Magdaleno MD NO INFO AVAILABLE 05/18/2022 Assigned Cancer Care Provider 03/25/20 03/09/22 Jamie Hamlin MD [address] [place] [address] Assigned Heart and Vascular Provider 03/25/20 01/14/21 Tito Gipson MD [address] [place] [address] [phone] Assigned Musculoskeletal Provider 03/25/20 07/09/20 Marlene Rivas APRN [facility] [address] [place] [address] [phone] Nurse Practitioner Interventional Cardiology 12/28/20 Roslyn Gray [facility] [address] [place] [address] Pharmacist Pharmacist 01/11/21 03/09/21 Jamie Hamlin MD [address] [place] [address] 125425 Assigned Heart and Vascular Provider 02/19/21 07/13/22 Garret Brown, PhD LP [address] [place] [address] [address] [place], [place] [phone] Assigned Behavioral Health Provider 04/23/21 12/28/22 Roslyn Gray [facility] [address] [place] [address] [phone] Assigned MTM Pharmacist 10/28/21 02/16/22 Roslyn Gray [facility] [address] [place] [address] [phone] Assigned MTM Pharmacist 02/28/22 07/27/22 documented as of this encounter
--- OUTSIDE RECORDS SUMMARY | 2024-04-22 08:50 | XMS_ITS | Encounter Summary ---
Author Organization [place] Address [address] [place] [place] [address] Care Team Providers Care Software Engineer Name Role Phone Tristan White MD Primary Care Provider [phone] Jamie Hamlin MD Unavailable [phone] Tristan White MD Unavailable [phone] Marlene Rivas APRN [facility] Unavailable [phone] Jamie Hamlin MD Unavailable [phone] Garret Brown PhD LP Unavailable [phone] Roslyn Gray [facility] Unavailable [phone] Reason for Visit * Reason Comments Medication Refill Encounter Details Date Type Department Care Team (Late st Contact Info) Description 06/06/2022 Refill [facility] [address] [place] [address] Tristan White MD [address] [place] [address] Medication Refill Social History Tobacco Use Types Packs/Day Years Used Date Smoking Tobacco: Never Smokeless Tobacco: Never Alcohol Use Standard Drinks/Week Comments No 0 (1 standard drink = 0.6 oz pur e alcohol) PHQ-2 Answer Date Recorded PHQ-2 Score 6 12/16/2020 Sex and Gender Information Value Date Recorded Sex Assigned at Male 11/15/2020 10:44 AM CDT Legal Sex Male 3:09 AM 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 Adelaida Kendrick RN [facility] ULATING DRYING SUPERVISOR documented in this encounter Plan of Treatment Not on file documented as of this encounter Visit Diagnoses Diagnosis EREN (generalized anxiety disorder) Generalized anxiety disorder documented in this encounter Additional Health Concerns Assessment Noted Time PHQ-9 Depression Total Score: 21 021 7:50 AM CDT documented as of this encounter Care Teams Software Engineer Relationship Specialty Start Date End Date Tristan White MD [address] [place] [address] PCP - General Family Practice 11/17/10 Jamie Hamlin MD [address] [place] [address] Cardiology 05/29/18 Tristan White MD [address] [facility] [address] [place] [address] Assigned PCP 02/21/20 01/23/24 Marlene Rivas, EQUIPMENT VALIDATION ENGINEER NEEDLE PUNCH OPERATOR [address] [place] [address] Nurse Practitioner Interventional Cardiology 12/28/20 Jamie Hamlin MD [address] [place] [address] [phone] Assigned Heart and Vascular Provider 02/19/21 07/13/22 Garret Brown, PhD LP [address] [place] [address] [address] [place], [place] 315555 Assigned Behavioral Health Provider 04/23/21 12/28/22 Roslyn Gray, [facility] [address] [place] [address] Assigned MTM Pharmacist 02/28/22 07/27/22 documented as of this encounter
--- OUTSIDE RECORDS SUMMARY | 2024-04-22 08:50 | XMS_ITS | Encounter Summary ---
Author Organization [place] Address [address] [place] [address]. [place] [address] Care Team Providers Care Refrigerator Cabinetmaker Name Role Phone Tristan White MD Primary Care Provider [phone] Jamie Hamlin MD Unavailable [phone] Tristan White MD Unavailable [phone] Renea Magdaleno MD Unavailable Unavailab Marlene Sahu APRN [facility] Unavailable [phone] Jamie Hamlin MD Unavailable [phone] Garret Brown PhD Unavailable [phone] Roslyn Gray [facility] Unavailable [phone] Roslyn Gray [facility] Unavailable [phone] Reason for Visit * Reason Comments Medication Refill Encounter Details Date Type Department Care Team (Late st Contact Info) Description 09/15/2021 Refill [facility] [address] [place] [address] Tristan White MD [address] [place] [address] Medication Refill Social History Tobacco Use Types Packs/Day Years Used Date Smoking Tobacco: Never Smokeless Tobacco: Never Alcohol Use Standard Drinks/Week Comments No 0 (1 standard drink = 0.6 oz pur e alcohol) PHQ-2 Answer Date Recorded PHQ-2 Score 6 12/16/2020 Sex and Gender Information Value Date Recorded Sex Assigned at Male 11/15/2020 10:44 AM CDT Legal Sex Male 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 BELT OPERATOR Gender Identity Male 11/15/2020 10:44 AM [...] documented as of this encounter Care Teams Refrigerator Cabinetmaker Relationship Specialty Start Date End Date Tristan White MD [address] [place] [address] PCP - General Family Practice 11/17/10 Jamie Hamlin MD [address] [place] [address] Cardiology 05/29/18 Tristan White MD [address] [place] [address] Assigned PCP 02/21/20 01/23/24 Renea Magdaleno MD NO INFO AVAILABLE 05/18/2022 Assigned Cancer Care Provider 03/25/20 03/09/22 Marlene Rivas APRN [facility] [address] [place] [address] Nurse Practitioner Interventional Cardiology 12/28/20 Jamie Hamlin MD [address] [place] [address] Assigned Heart and Vascular Provider 02/19/21 07/13/22 Garret Brown, PhD [address] [place] [address] 741 [place] [address] Assigned Behavioral Health Provider 04/23/21 12/28/22 Roslyn Gray [facility] [address] [place] [address] Assigned MTM Pharmacist 10/28/21 02/16/22 Roslyn Gray [facility] [address] [place] [address] Assigned MTM Pharmacist 02/28/22 07/27/22 documented as of this encounter
--- OUTSIDE RECORDS SUMMARY | 2024-04-22 08:50 | XMS_ITS | Encounter Summary ---
Author Organization [place] Address [address] [place] [address] Care Team Providers Care Editor Newspaper Name Role Phone Tristan White MD Primary Care Provider [phone] Renea Magdaleno MD Unavailable Unavailab Jamie Hodges MD Unavailable + [phone] Tristan White MD Unavailable [phone] Renea Magdaleno MD Unavailable Unavailab Jamie Hodges MD Unavailable [phone] Marlene Rivas APRN POSTING SPECIALIST Unavailable [phone] Roslyn Gray [facility] Unavailable [phone] Jamie Hamlin MD Unavailable + [phone] Garret Brown PhD LP Unavailable [phone] Roslyn Gray [facility] Unavailable +[phone] Roslyn Gray [facility] Unavailable +[phone]- Encounter Details Date Type Department Care Team (Late st Contact Info) Description 09/06/2020 [facility] Blood and Marrow Transplant Program [address] [address] [facility] Social History Tobacco Use Types Packs/Day Years Used Date Smoking Tobacco: Never Smokeless Tobacco: Never Alcohol Use Standard Drinks/Week Comments No 0 (1 standard drink = 0.6 oz pur e alcohol) PHQ-2 Answer Date Recorded PHQ-2 Score 6 02/12/2020 Sex and Gender Information Value Date Recorded Sex Assigned at Male 11/15/2020 10:44 AM CDT Legal Sex Male 3:09 AM PATIENT ACCESS COORDINATOR Gender Identity Male 11/15/2020 10:44 AM CDT [...] documented as of this encounter Care Teams Editor Newspaper Relationship Specialty Start Date End Date Tristan White MD [address] [place] [address] PCP - General Family Practice 11/17/10 Renea Magdaleno MD [address] [place] [address] Internal Medicine 12/09/15 03/20/21 Jamie Hamlin MD [address] [place] [address] Cardiology 05/29/18 Tristan White MD [address] [place] [address] Assigned PCP 02/21/20 01/23/24 Renea Magdaleno MD NO INFO AVAILABLE 05/18/2022 Assigned Cancer Care Provider 03/25/20 03/09/22 Jamie Hamlin MD [address] [place] [address] Assigned Heart and Vascular Provider 03/25/20 01/14/21 Marlene Rivas APRN [facility] [address] [place] [address] Nurse Practitioner Interventional Cardiology 12/28/20 Roslyn Gray [facility] [address] 257104 Pharmacist Pharmacist 01/11/21 03/09/21 Jamie Hamlin MD [address] [place] [address] Assigned Heart and Vascular Provider 02/19/21 07/13/22 Garret Brown, PhD LP [address] [place] [address] 741 [place] [address] Assigned Behavioral Health Provider 04/23/21 12/28/22 Roslyn Gray, [facility] [address] [place] [address] Assigned MTM Pharmacist 10/28/21 02/16/22 Roslyn Gray [facility] [address] [place] [address] Assigned MTM Pharmacist 02/28/22 07/27/22 documented as of this encounter
--- OUTSIDE RECORDS SUMMARY | 2024-04-22 08:50 | XMS_ITS | Encounter Summary ---
Author Organization [place] Address [address] [facility] [place] [address] Care Team Providers Care Straight Edger Name Role Phone Tristan White MD Primary Care Provider [phone] Renea Magdaleno MD Unavailable Unavailab Jamie Hodges MD Unavailable + [phone] Tristan White MD Unavailable +[phone] Renea Magdaleno MD Unavailable Unavailab Jamie Hodges MD Unavailable [phone] Marlene Rivas APRN [employer] Unavailable [phone] Roslyn Gray [facility] Unavailable [phone] Jamie Hamlin MD Unavailable [phone] Garret Brown PhD LP Unavailable [phone] Roslyn Gray [facility] Unavailable [phone] Roslyn Gray [facility] Unavailable [phone] Encounter Details Date Type Department Care Team (Late st Contact Info) Description 07/12/2020 [facility] [address] [place] [address] Tristan White MD [address] [place] [address] Social History Tobacco Use Types Packs/Day Years Used Date Smoking Tobacco: Never Smokeless Tobacco: Never Alcohol Use Standard Drinks/Week Comments No 0 (1 standard drink = 0.6 oz pur e alcohol) PHQ-2 Answer Date Recorded PHQ-2 Score 6 02/12/2020 Sex and Gender Information Value Date Recorded Sex Assigned at Male 11/15/2020 10:44 AM CDT Legal Sex Male 3:09 AM J2EE DEVELOPER Gender Identity Male 11/15/2020 10:44 AM CDT Sexual Orientation Straight 11/15/2020 10 :44 AM CDT COVID-19 Exposure Response Date Recorded In the last month, have you been in contact with someone who was confirmed or suspected to have Coronavirus / COVID-19? Unable to assess 06/29/2020 8:32 AM J2EE DEVELOPER documented as of this encounter Miscellaneous Notes * Telephone Encounter - Ayesha Daly RN - 07/12/2020 4:57 PM CST [facility] [employer] message sent to pt. Ayesha Daly RN [facility] J2EE DEVELOPER documented in this encounter Plan of Treatment Not on file documented as of this encounter Visit Diagnoses Not on filedocumented in this encounter Additional Health Concerns Assessment Noted Time PHQ-9 Depression Total Score: 15 020 9:42 AM CDT documented as of this encounter Care Teams Straight Edger Relationship Specialty Start Date End Date Tristan White MD [address] [place] [address] PCP - General Family Practice 11/17/10 Renea Magdaleno MD [address] [place] [address] Internal Medicine 12/09/15 03/20/21 Jamie Hamlin MD [address] [place] [address] Cardiology 05/29/18 Tristan White MD [address] [facility] [address] [place] [address] Assigned PCP 02/21/20 01/23/24 Renea Magdaleno MD NO INFO AVAILABLE 05/18/2022 Assigned Cancer Care Provider 03/25/20 03/09/22 Jamie Hamlin MD [address] [place] [address] Assigned Heart and Vascular Provider 03/25/20 01/14/21 Marlene Rivas APRN [facility] [address] [place] [address] [phone] Nurse Practitioner Interventional Cardiology 12/28/20 Roslyn Gray [facility] [address] [place] [address] [phone] Pharmacist Pharmacist 01/11/21 03/09/21 Jamie Hamlin MD [address] [place] [address] 8[address] Assigned Heart and Vascular Provider 02/19/21 07/13/22 Garret Brown, PhD LP [address] [place] [address] 741 [place], [place] 497065 Assigned Behavioral Health Provider 04/23/21 12/28/22 Roslyn Gray [facility] Count includes the [facility] [address] 905294 Assigned MTM Pharmacist 10/28/21 02/16/22 Roslyn Gray [facility] [address] [place] [address] Assigned MTM Pharmacist 02/28/22 07/27/22 documented as of this encounter
--- OUTSIDE RECORDS SUMMARY | 2024-04-22 08:50 | XMS_ITS ---
Author Organization [place] Address [address] [place] [address] Care Team Providers Care Breast Worker Name Role Phone Tristan White MD Primary Care Provider [phone] Jamie Hamlin MD Unavailable [phone] Marlene Rivas APRN [employer] Unavailable [phone] Active Problems Problem Noted Date Diagnosed Date [...] treatments are documented for this patient in [facility]. Treatments may have been administered in another system. Resolved Problems Problem Noted Date Diagnosed Date Resolved Date RENDON (dyspnea on exertion) 08/04/2014 Chest pain 08/03/2014 09/22/2016 Advanced directives, counseling/discussion 12/10/2012 11/18/2023 Overview (12/10/2012): Advance Care Planning: ACP Review and Resources Provided: Reviewed chart for advance care plan. Isaiah Sanchez Solis has no plan or code status on file. Discussed available resources and provided with information. Confirmed code status reflects current choices pending further ACP discussions. Confirmed/documented designated decision maker(s). See permanent comments section of demographics in clinical tab. Added by Malissa Rodriguez on 12/10/2012
--- OUTSIDE RECORDS SUMMARY | 2024-04-22 08:50 | XMS_ITS | Encounter Summary ---
Author Organization [place] Address [address] [place] [address] Care Team Providers Care Business Line Controller Name Role Phone Tristan White MD Primary Care Provider [phone] Renea Magdaleno MD Unavailable Unavailab Jamie Hodges MD Unavailable + [phone] Tristan White MD Unavailable +[phone] Renea Magdaleno MD Unavailable Unavailab Jamie Hodges MD Unavailable [phone] Tito Gipson MD Unavailable [phone] Marlene Rivas APRN [facility] Unavailable [phone] Roslyn Gray [facility] Unavailable [phone] Jamie Hamlin MD Unavailable + [phone] Garret Brown PhD LP Unavailable [phone] Roslyn Gray [facility] Unavailable [phone] Roslyn Gray [facility] Unavailable [phone] Encounter Details Date Type Department Care Team (Late st Contact Info) Description 03/03/2020 [facility] Blood and Marrow Transplant Program [address] [address] Renea Magdaleno MD NO INFO [...] AM CDT Legal Sex Male 3:09 AM TABLEAU REPORT DEVELOPER Gender Identity Male 11/15/2020 10:44 AM [...] documented as of this encounter Care Teams Business Line Controller Relationship Specialty Start Date End Date Tristan White MD [address] [place] [address] PCP - General Family Practice 11/17/10 Renea Magdaleno MD [address] [place] [address] Internal Medicine 12/09/15 03/20/21 Jamie Hamlin MD [address] [place] [address] Cardiology 05/29/18 Tristan White MD [address] [place] [address] Assigned PCP 02/21/20 01/23/24 Renea Magdaleno MD NO INFO AVAILABLE 05/18/2022 Assigned Cancer Care Provider 03/25/20 03/09/22 Jamie Hamlin MD [address] [place] [address] Assigned Heart and Vascular Provider 03/25/20 01/14/21 Tito Gipson MD [address] [place] [address] Assigned Musculoskeletal Provider 03/25/20 07/09/20 Marlene Rivas APRN [facility] [address] [place] [address] Nurse Practitioner Interventional Cardiology 12/28/20 Roslyn Gray [facility] [address] [place] [address] [phone] Pharmacist Pharmacist 01/11/21 03/09/21 Jamie Hamlin MD [address] [place] [address] Assigned Heart and Vascular Provider 02/19/21 07/13/22 Garret Brown, PhD LP [address] [place] [address] [place] [address] [phone] Assigned Behavioral Health Provider 04/23/21 12/28/22 Roslyn Gray [facility] [address] [place] [address] 554284 Assigned MTM Pharmacist 10/28/21 02/16/22 Roslyn Gray [facility] [address] [place] [address] [phone] Assigned MTM Pharmacist 02/28/22 07/27/22 documented as of this encounter
--- OUTSIDE RECORDS SUMMARY | 2024-04-22 08:50 | XMS_ITS | Clinical Summary ---
Author Organization [facility] Address [place], [place] [address] Care Team Providers Care Milieu Therapist Name Role Phone Matthew Rowe MD Primary Care Provider [phone] Allergies Active Allergy Reactions Criticality Noted Date [...] ONCE DAILY 90 Tablet 3 08/23/2022 Active spironolactone (ALDACTONE) 25 mg tabletIndications:NICM (nonischemic cardiomyopathy) (HC),Chronic HFrEF (heart failure with reduced ejection fraction) (HC) Take one-half Tablets (12.5 mg) by mouth once daily. 90 Tablet 2 12/26/2023 Active Active Problems Problem Noted Date Diagnosed [...] Friends and Fami ly Not on file 12/26/2023 Sex and Gender Information Value Date Recorded Sex Assigned at Not on file Gender Identity Not on file Sexual Orientation Not on file Obstetrics History Last Filed Vital Signs Vital Sign Reading Time Taken Comments Blood Pressure 102/58 09/29/2021 9:02 AM CDT Pulse 58 09/29/2021 9:02 AM CDT Temperature 37.2 C (98.9 F) 01/16/2019 12:00 PM CDT Respiratory Rate 16 09/29/2021 9:02 AM CDT Oxygen Saturation 98% 01/16/2019 12:00 PM CDT Inhaled Oxygen Concentration - - Weight 82.1 kg (181 lb) 09/29/2021 9:02 AM CDT Height 185.4 cm (6' 1) 01/15/2019 1:53 PM CDT Body Mass Index 23.88 01/15/2019 1:53 PM CDT Plan of Treatment Upcoming Encounters Date Type Department Care Team (Late st Contact Info) Description 04/22/2024 9:00 AM HAND ROUTER OPERATOR Ancillary Procedure [facility] [address] [place] [address] Health Maintenance Due Date Last Done Comments Pneumococcal series for age 65+ (1 of 2 - PCV) 1959 Tdap 1964 Depression screening for age 12+ 1965 BMI (ht and wt on same day) for age 18+ 1971 Hepatitis C screening for ag e 18-79 1971 Zoster (shingles) series for age 50+ (1 of 2) 1972 Tetanus booster 1973 Colonoscopy through age 75 1998 Lipids for age 45-75 1998 Medicare Wellness for age 65+ 2018 COVID-19 vaccine series ( season) 2024 03/28/2023, 12/03/2022, 03/28/2022, Additional history exists Influenza for age 65+ 02/02/2024 Advance Directives * Full Code (Latest Code Status on File) Date Activated Date Inactivated Comments 01/15/2019 1:37 PM 01/16/2019 7:04 PM Question Answer Comments Code Status Discussion: Per Existing Order Care Teams Milieu Therapist Relationship Specialty Start Date End Date Matthew Rowe MD [address] [place] [address] PCP - General Internal Medicine 09/27/21
--- OUTSIDE RECORDS SUMMARY | 2024-04-22 08:50 | XMS_ITS | Encounter Summary ---
Author Organization [place] Address [address] [place] [address]. [place] [address] Care Team Providers Care Insole And Heel Stiffener Name Role Phone Tristan White MD Primary Care Provider [phone] Jamie Hamlin MD Unavailable [phone] Tristan White MD Unavailable + [phone] Renea Magdaleno MD Unavailable Unavailab Marlene Sahu APRN [facility] Unavailable +[phone] Jamie Hamlin MD Unavailable +[phone] Garret Brown PhD Unavailable [phone] Roslyn Gray [facility] Unavailable +[phone] Roslyn Gray [facility] Unavailable +[phone] Reason for Visit * Reason Comments Medication Refill Encounter Details Date Type Department Care Team (Late st Contact Info) Description 09/27/2021 Refill [facility] [address] [place] [address] Tristan White MD [address] [place] [address] Medication Refill Social History Tobacco Use Types Packs/Day Years Used Date Smoking Tobacco: Never Smokeless Tobacco: Never Alcohol Use Standard Drinks/Week Comments No 0 (1 standard drink = 0.6 oz pur e alcohol) PHQ-2 Answer Date Recorded PHQ-2 Score 6 12/16/2020 Sex and Gender Information Value Date Recorded Sex Assigned at Male 11/15/2020 10:44 AM CDT Legal Sex Male 3:09 AM AGER OPERATOR Gender Identity Male 11/15/2020 10:44 AM [...] because: A1C, LDL, 6 mo f/u Livier Malone RN [facility] documented in this encounter Plan of [...] documented as of this encounter Care Teams Insole And Heel Stiffener Relationship Specialty Start Date End Date Tristan White MD [address] [place] [address] PCP - General Family Practice 11/17/10 Jamie Hamlin MD [address] [place] [address] Cardiology 05/29/18 Tristan White MD [address] [place] [address] Assigned PCP 02/21/20 01/23/24 Renea Magdaleno MD NO INFO AVAILABLE 05/18/2022 Assigned Cancer Care Provider 03/25/20 03/09/22 Marlene Rivas APRN [facility] [address] [place] [address] Nurse Practitioner Interventional Cardiology 12/28/20 Jamie Hamlin MD [address] [place] [address] 494355 Assigned Heart and Vascular Provider 02/19/21 07/13/22 Garret Brown, PhD LP [address] [place] [address] [address] [place], [place] 814415 Assigned Behavioral Health Provider 04/23/21 12/28/22 Roslyn Gray [facility] [address] [place] [address] [phone] Assigned MTM Pharmacist 10/28/21 02/16/22 Roslyn Gray [facility] [address] [place] [address] Assigned MTM Pharmacist 02/28/22 07/27/22 documented as of this encounter
--- OUTSIDE RECORDS SUMMARY | 2024-04-22 08:50 | XMS_ITS | Encounter Summary ---
Author Organization [place] Address [address] [place] [address] Care Team Providers Care Accounts Receivable Executive Name Role Phone Tristan White MD Primary Care Provider [phone] Renea Magdaleno MD Unavailable Unavailab Jamie Hodges MD Unavailable + [phone] Tristan White MD Unavailable + [phone] Renea Magdaleno MD Unavailable Unavailab Marlene Sahu APRN PATTERN ROOM ATTENDANT Unavailable [phone] Roslyn Gray [facility] Unavailable +1- Jamie Hamlin MD Unavailable + [phone] Garret Brown PhD Unavailable +[phone] Roslyn Gray [facility] Unavailable +1- Roslyn Gray [facility] Unavailable +1- Encounter Details Date Type Department Care Team (Late st Contact Info) Description 02/02/2021 [facility] Blood and Marrow Transplant Program [address] [address] Mago Noble Social History Tobacco Use Types Packs/Day Years Used Date Smoking Tobacco: Never Smokeless Tobacco: Never Alcohol Use Standard Drinks/Week Comments No 0 (1 standard drink = 0.6 oz pur e alcohol) PHQ-2 Answer Date Recorded PHQ-2 Score 6 12/16/2020 Sex and Gender Information Value Date Recorded Sex Assigned at Male 11/15/2020 10:44 AM CDT Legal Sex Male 3:09 AM 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 Gender Identity Male 11/15/2020 10:44 AM [...] documented as of this encounter Care Teams Accounts Receivable Executive Relationship Specialty Start Date End Date Tristan White MD [address] [place] [phone] PCP - General Family Practice 11/17/10 Renea Magdaleno MD [address] [place] [address] Internal Medicine 12/09/15 03/20/21 Jamie Hamlin MD [address] [place] [address] Cardiology 05/29/18 Tristan White MD [address] [place] [address] Assigned PCP 02/21/20 01/23/24 Renea Magdaleno MD NO INFO AVAILABLE 05/18/2022 Assigned Cancer Care Provider 03/25/20 03/09/22 Marlene Rivas, ANALYTICS CONSULTANT [facility] [address] [place] [address] Nurse Practitioner Interventional Cardiology 12/28/20 Roslyn Gray [facility] [address] [place] [address] Pharmacist Pharmacist 01/11/21 03/09/21 Jamie Hamlin MD [address] [place] [address] Assigned Heart and Vascular Provider 02/19/21 07/13/22 Garret Brown, PhD LP [address] [place] [address] [address]41 [place] [address] Assigned Behavioral Health Provider 04/23/21 12/28/22 Roslyn Gray [facility] [address] [place] [address] Assigned MTM Pharmacist 10/28/21 02/16/22 Roslyn Gray [facility] [address] [place] [address] Assigned MTM Pharmacist 02/28/22 07/27/22 documented as of this encounter
--- OUTSIDE RECORDS SUMMARY | 2024-04-22 08:50 | XMS_ITS | Encounter Summary ---
Author Organization [place] Address [address] [place] [address] Care Team Providers Care Desktop Analyst Name Role Phone Tristan White MD Primary Care Provider Renea Magdaleno MD Unavailable Unavailab Jamie Hodges MD Unavailable + [phone] Tristan White MD Unavailable +- [phone] Renea Magdaleno MD Unavailable Unavailab Marlene Sahu APRN STITCHING MACHINE SETTER Unavailable [phone] Roslyn Gray [facility] Unavailable [phone] Jamie Hamlin MD Unavailable +[phone] Garret Brown PhD LP Unavailable [phone] Roslyn Gray [facility] Unavailable +[phone] Roslyn Gray [facility] Unavailable +[phone] Reason for Visit * Reason Onset Date Comments Erroneous encounter-disregard 02/10/2021 Encounter Details Date Type Department Care Team (Late st Contact Info) Description 02/10/2021 [facility] [address] [place] [address] Tristan White MD [address] [place] [address] Erroneous encounter-disregard Social History Tobacco Use Types Packs/Day Years Used Date Smoking Tobacco: Never Smokeless Tobacco: Never Alcohol Use Standard Drinks/Week Comments No 0 (1 standard drink = 0.6 oz pur e alcohol) PHQ-2 Answer Date Recorded PHQ-2 Score 6 12/16/2020 Sex and Gender Information Value Date Recorded Sex Assigned at Male 11/15/2020 10:44 AM CDT Legal Sex Male 3:09 AM BASEBALL WINDER Gender Identity Male 11/15/2020 10:44 AM CDT [...] documented as of this encounter Care Teams Desktop Analyst Relationship Specialty Start Date End Date Tristan White MD [address] [place] [address] PCP - General Family Practice 11/17/10 Renea Magdaleno MD [address] [place] [address] Internal Medicine 12/09/15 03/20/21 Jamie Hamlin MD [address] [place] [address] Cardiology 05/29/18 Tristan White MD [address] [place] [address] Assigned PCP 02/21/20 01/23/24 Renea Magdaleno MD NO INFO AVAILABLE 05/18/2022 Assigned Cancer Care Provider 03/25/20 03/09/22 Marlene Rivas APRN STITCHING MACHINE SETTER [address] [place] [address] Nurse Practitioner Interventional Cardiology 12/28/20 Roslyn Gray [facility] [address] [phone] Pharmacist Pharmacist 01/11/21 03/09/21 Jamie Hamlin MD [address] [place], [place] [address] Assigned Heart and Vascular Provider 02/19/21 07/13/22 Garret Brown, PhD LP [address] [place] [address] 7[address] [place], [place] 567245 Assigned Behavioral Health Provider 04/23/21 12/28/22 Roslyn Gray, [facility] [address] [place] [address] Assigned MTM Pharmacist 10/28/21 02/16/22 Roslyn Gray [facility] [address] [place] [address] 138494 Assigned MTM Pharmacist 02/28/22 07/27/22 documented as of this encounter
--- OUTSIDE RECORDS SUMMARY | 2024-04-22 08:51 | XMS_ITS | Encounter Summary ---
Author Organization [place] Address [address] [facility] [facility] [place] [address] Care Team Providers Care Stretch Press Operator Name Role Phone Tristan White MD Primary Care Provider [phone] Renea Magdaleno MD Unavailable Unavailab Emily Casiano RN Unavailable + [phone] Tristan White MD Unavailable +- [phone] Jamie Hamlin MD Unavailable + [phone] Anusha Guillermo RN Unavailable +[phone] Tristan White MD Unavailable + [phone] Tristan White MD Unavailable +- [phone] Renea Magdaleno MD Unavailable Unavailab Jamie Hodges MD Unavailable + 2 Tito Gipson MD Unavailable +[phone] Marlene Rivas APRN DOWEL INSPECTOR Unavailable + [phone] Roslyn Gray [facility] Unavailable +1- Jamie Hamlin MD Unavailable + 2 Garret Brown PhD LP Unavailable +[phone] Roslyn Gray [facility] Unavailable +1- Roslyn Gray [facility] Unavailable +1- Reason for Visit * Reason Onset Date Comments Prior Auth - Medication 09/27/2017 valACYcl ovir (VALTREX) 500 MG tablet Encounter Details Date Type Department Care Team (Late st Contact Info) Description 09/27/2017 Telephone [facility] Cancer [facility] [address] [place] [address] Renea Magdaleno MD NO INFO [...] AM CDT Legal Sex Male 3:09 AM HEALTH INSURANCE SALES AGENT Gender Identity Male 11/15/2020 10:44 AM CDT [...] documented as of this encounter Care Teams Stretch Press Operator Relationship Specialty Start Date End Date Tristan White MD [address] [place] [address] PCP - General Family Practice 11/17/10 Tristan White MD [address] [place] [address] PCP - Assigned PCP 12/20/13 08/05/18 Renea Magdaleno MD [address] [place] [address] Internal Medicine 12/09/15 03/20/21 Emily Segura, RN Nurse Coordinator Hematology & Oncology 12/09/15 07/09/18 Jamie Hamlin MD [address] [place] [address] Cardiology 05/29/18 Anusha Guillermo, RN Nurse Coordinator Hematology & Oncology 07/10/18 01/05/19 Tristan White MD [address] [place] [address] Assigned PCP 12/20/13 02/20/20 Tristan White MD [address] [place] [address] Assigned PCP 02/21/20 01/23/24 Renea Magdaleno MD NO INFO AVAILABLE 05/18/2022 Assigned Cancer Care Provider 03/25/20 03/09/22 Jamie Hamlin MD [address] [place], [place] 722745 Assigned Heart and Vascular Provider 03/25/20 01/14/21 Tito Gipson MD [address] [place] [address] [phone] Assigned Musculoskeletal Provider 03/25/20 07/09/20 Marlene Rivas, LICENSED FINAL EXPENSE AGENTS DOWEL INSPECTOR [address] [place] [address] Nurse Practitioner Interventional Cardiology 12/28/20 Roslyn Gray [facility] [address] [address] Pharmacist Pharmacist 01/11/21 03/09/21 Jamie Hamlin MD [address] [place] [address] [phone] Assigned Heart and Vascular Provider 02/19/21 07/13/22 Garret Brown, PhD LP [address] [place] [address] [address] [place] [address] Assigned Behavioral Health Provider 04/23/21 12/28/22 Roslyn Gray [facility] [address] [place] [address] [phone] Assigned MTM Pharmacist 10/28/21 02/16/22 Roslyn Gray [facility] [address] [place] [address] [phone] Assigned MTM Pharmacist 02/28/22 07/27/22 documented as of this encounter
--- OUTSIDE RECORDS SUMMARY | 2024-04-22 08:51 | XMS_ITS | Encounter Summary ---
Author Organization [place] Address [address] [place] [address] Care Team Providers Care Top Precipitator Operator Helper Name Role Phone Tristan White MD Primary Care Provider [phone] Renea Magdaleno MD Unavailable Unavailab Jamie Hodges MD Unavailable + Tristan White MD Unavailable + [phone] Tristan White MD Unavailable + [phone] Renea Magdaleno MD Unavailable Unavailab Jmaie Hodges MD Unavailable + 2 Tito Gipson MD Unavailable +[phone] Marlene Rivas APRN [facility] Unavailable +[phone] Roslyn Gray [facility] Unavailable +1- Jamie Hamlin MD Unavailable + Garret Brown PhD LP Unavailable +[phone] Roslyn Gray [facility] Unavailable +1- Roslyn Gray [facility] Unavailable +[phone] Reason for Visit * Reason Onset Date Comments *-*INCOMING RECORDS*-* 01/06/2019 Encounter Details Date Type Department Care Team (Late st Contact Info) Description 01/06/2019 PRE VISIT [facility] [address] [facility] [address] 4[address] [place] [address] Ozzie Erickson MD [address] [place] [address] *-*INCOMING RECORDS*-* Social History Tobacco Use Types Packs/Day Years Used Date Smoking Tobacco: Never Smokeless Tobacco: Never Alcohol Use Standard Drinks/Week Comments No 0 (1 standard drink = 0.6 oz pur e alcohol) PHQ-2 Answer Date Recorded PHQ-2 Score 0 09/01/2018 Sex and Gender Information Value Date Recorded Sex Assigned at Male 11/15/2020 10:44 AM CDT Legal Sex Male 3:09 AM 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 MRI done @[facility] previous surgery 10 years ago or more he thinks in [place] DATE RECEIVED: Jan 06, 2019 NOTES STATUS [...] AM Faxed request and signed savanah to [facility]. 3:18 PM received fax from [facility], omitting the op note. Called [facility]. Per Aubree, they destroy records older than [...] documented as of this encounter Care Teams Top Precipitator Operator Helper Relationship Specialty Start Date End Date Tristan White MD [address] [place] [address] PCP - General Family Practice 11/17/10 Renea Magdaleno MD [address] [place] [address] Internal Medicine 12/09/15 03/20/21 Jamie Hamlin MD [address] [place] [address] Cardiology 05/29/18 Tristan White MD [address] [place] [address] Assigned PCP 12/20/13 02/20/20 Tristan White MD [address] [place] [address] Assigned PCP 02/21/20 01/23/24 Renea Magdaleno MD NO INFO AVAILABLE 05/18/2022 Assigned Cancer Care Provider 03/25/20 03/09/22 Jamie Hamlin MD [address] [place] [address] [id number] Assigned Heart and Vascular Provider 03/25/20 01/14/21 Tito Gipson MD [address] [place], [place] 502425 Assigned Musculoskeletal Provider 03/25/20 07/09/20 Marlene Rivas APRN [facility] [address] [place] [address] Nurse Practitioner Interventional Cardiology 12/28/20 Roslyn Gray [facility] [address] [place] [address] Pharmacist Pharmacist 01/11/21 03/09/21 Jamie Hamlin MD [address] [place] [address] [phone] Assigned Heart and Vascular Provider 02/19/21 07/13/22 Garret Brown, PhD LP [address] [place] [address] [address] [place], [place] 478[address] Assigned Behavioral Health Provider 04/23/21 12/28/22 Roslyn Gray [facility] [address] [place] [address] [phone] Assigned MTM Pharmacist 10/28/21 02/16/22 Roslyn Gray [facility] [address] [place] [address] [phone] Assigned MTM Pharmacist 02/28/22 07/27/22 documented as of this encounter
--- OUTSIDE RECORDS SUMMARY | 2024-04-22 08:51 | XMS_ITS | Encounter Summary ---
Author Organization [place] Address [facility] [place] [address] Care Team Providers Care Granite Fabricator Name Role Phone Tristan White MD Primary Care Provider [phone] Renea Magdaleno MD Unavailable Unavailab Emily Casiano RN Unavailable + [phone] Tristan White MD Unavailable + [phone] Jamie Hamlin MD Unavailable + [phone] Anusha Guillermo RN Unavailable +[phone] Tristan White MD Unavailable + [phone] Tristan White MD Unavailable +- [phone] Renea Magdaleno MD Unavailable Unavailab Jamie Hodges MD Unavailable + 2 Tito Gipson MD Unavailable +[phone] Marlene Rivas APRN FIREFIGHTING EQUIPMENT SPECIALIST Unavailable [phone] Roslyn Gray [facility] Unavailable +1- Jamie Hamlin MD Unavailable + 2 Garret Brown PhD LP Unavailable +[phone] Roslyn Gray [facility] Unavailable +1- Roslyn Gray [facility] Unavailable +[phone] Encounter Details Date Type Department Care Team (Late st Contact Info) Description 07/11/2017 [facility] Blood and Marrow Transplant Program [address] [phone] Renea Magdaleno MD NO INFO AVAILABLE 05/18/2022 Social History Tobacco Use Types Packs/Day Years Used Date Smoking Tobacco: Never Smokeless Tobacco: Never Alcohol Use Standard Drinks/Week Comments No 0 (1 standard drink = 0.6 oz pur e alcohol) Sex and Gender Information Value Date Recorded Sex Assigned at Male 11/15/2020 10:44 AM CDT Legal Sex Male 3:09 AM NO EXPERIENCE Gender Identity Male 11/15/2020 10:44 AM CDT Sexual Orientation Straight 11/15/2020 10 :44 AM CDT documented as of this encounter Plan of Treatment Not on file documented as of this encounter Visit Diagnoses Not on filedocumented in this encounter Additional Health Concerns Assessment Noted Time PHQ-9 Depression Total Score: 9 09/23/19 17 7:05 AM CDT documented as of this encounter Care Teams Granite Fabricator Relationship Specialty Start Date End Date Tristan White MD [address] [place] [address] PCP - General Family Practice 11/17/10 Tristan White MD [address] [place] [address] PCP - Assigned PCP 12/20/13 08/05/18 Renea Magdaleno MD [address] [place] [address] Internal Medicine 12/09/15 03/20/21 Emily Segura, CHRISTOPHER Nurse Coordinator Hematology & Oncology 12/09/15 07/09/18 Jamie Hamlin MD [address] [place] [address] Cardiology 05/29/18 Anusha Guillermo, RN Nurse Coordinator Hematology & Oncology 07/10/18 01/05/19 Tristan White MD [address] [place] [address] Assigned PCP 12/20/13 02/20/20 Tristan White MD [address] [place] [address] Assigned PCP 02/21/20 01/23/24 Renea Magdaleno MD NO INFO AVAILABLE 05/18/2022 Assigned Cancer Care Provider 03/25/20 03/09/22 Jamie Hamlin MD [address] [place], [place] 219945 Assigned Heart and Vascular Provider 03/25/20 01/14/21 Tito Gipson MD [address] [place] [address] [phone] Assigned Musculoskeletal Provider 03/25/20 07/09/20 Marlene Rivas, ANNEALING FURNACE OPERATOR FIREFIGHTING EQUIPMENT SPECIALIST 9 [place], [place] 657775 Nurse Practitioner Interventional Cardiology 12/28/20 Roslyn Gray [facility] [address] [place] [address] Pharmacist Pharmacist 01/11/21 03/09/21 Jamie Hamlin MD [address] [place] [address] Assigned Heart and Vascular Provider 02/19/21 07/13/22 Garret Brown, PhD LP [address] [facility] [address] [place] [address] Assigned Behavioral Health Provider 04/23/21 12/28/22 Roslyn Gray [facility] [address] 117054 Assigned MTM Pharmacist 10/28/21 02/16/22 Roslyn Gray [facility] [address] [address] Assigned MTM Pharmacist 02/28/22 07/27/22 documented as of this encounter
--- OUTSIDE RECORDS SUMMARY | 2024-04-22 08:51 | XMS_ITS | Encounter Summary ---
Author Organization [place] Address [address] [place] [address] Care Team Providers Care Car Wash Attendant Name Role Phone Tristan Whtie MD Primary Care Provider +[phone] Renea Magdaleno MD Unavailable Unavailab Jamie Hodges MD Unavailable + Tristan White MD Unavailable + [phone] Tristan White MD Unavailable +- [phone] Renea Magdaleno MD Unavailable Unavailab Jamie Hodges MD Unavailable + [phone] Tito Gipson MD Unavailable + [phone] Marlene Rivas APRN RECEIVABLE MANAGER Unavailable +[phone] Roslyn Gray [facility] Unavailable +1- Jamie Hamlin MD Unavailable + 2 Garret Brown PhD LP Unavailable +[phone] Roslyn Gray [facility] Unavailable +1- Roslyn Gray [facility] Unavailable +- Encounter Details Date Type Department Care Team (Late st Contact Info) Description 05/14/2019 [facility] Program [address] [address] [place] Social History Tobacco Use Types Packs/Day Years Used Date Smoking Tobacco: Never Smokeless Tobacco: Never Alcohol Use Standard Drinks/Week Comments No 0 (1 standard drink = 0.6 oz pur e alcohol) PHQ-2 Answer Date Recorded PHQ-2 Score 0 09/01/2018 Sex and Gender Information Value Date Recorded Sex Assigned at Male 11/15/2020 10:44 AM CDT Legal Sex Male 3:09 AM MANAGER CONTINUOUS IMPROVEMENT Gender Identity Male 11/15/2020 10:44 AM CDT Sexual Orientation Straight 11/15/2020 10 :44 AM CDT documented as of this encounter Plan of Treatment Not on file documented as of this encounter Visit Diagnoses Not on filedocumented in this encounter Additional Health Concerns Assessment Noted Time PHQ-9 Depression Total Score: 9 09/23/19 17 7:05 AM CDT documented as of this encounter Care Teams Car Wash Attendant Relationship Specialty Start Date End Date Tristan [place] MD [address] [place] [address] PCP - General Family Practice 11/17/10 Renea Magdaleno MD [address] [place] [address] Internal Medicine 12/09/15 03/20/21 Jamie Hamlin MD [address] [place] [address] Cardiology 05/29/18 Tristan White MD [address] [place] [address] Assigned PCP 12/20/13 02/20/20 Tristan White MD [address] [place] [address] Assigned PCP 02/21/20 01/23/24 Renea Magdaleno MD NO INFO AVAILABLE 05/18/2022 Assigned Cancer Care Provider 03/25/20 03/09/22 Jamie Hamlin MD [address] [place] [address]391 Assigned Heart and Vascular Provider 03/25/20 01/14/21 Tito Gipson MD [address] [place] [address] 46700 Assigned Musculoskeletal Provider 03/25/20 07/09/20 Marlene Rivas APRN [facility] [address] [place] [address] [phone] Nurse Practitioner Interventional Cardiology 12/28/20 Roslyn Gray [facility] [address] [place] [address] [phone] Pharmacist Pharmacist 01/11/21 03/09/21 Jamie Hamlin MD [address] [place] [address] 68124 Assigned Heart and Vascular Provider 02/19/21 07/13/22 Garret Brown, PhD LP [address] [place] [address] [phone] Assigned Behavioral Health Provider 04/23/21 12/28/22 Roslyn Gray [facility] [address] [place] [address] [phone] Assigned MTM Pharmacist 10/28/21 02/16/22 Roslyn Gray [facility] Critical access hospital0 [address] [address] Assigned MTM Pharmacist 02/28/22 07/27/22 documented as of this encounter
--- OUTSIDE RECORDS SUMMARY | 2024-04-22 08:51 | XMS_ITS | Encounter Summary ---
Author Organization [facility] Address [address] [place] [address] Care Team Providers Care Mathematics Academic Chair Name Role Phone Tristan White MD Primary Care Provider +[phone] Renea Magdaleno MD Unavailable Unavailab Jamie Hodges MD Unavailable + Tristan White MD Unavailable + [phone] Tristan White MD Unavailable +- [phone] Renea Magdaleno MD Unavailable Unavailab Jamie Hodges MD Unavailable + [phone] Tito Gipson MD Unavailable + [phone] Marlene Rivas APRN STUDY ABROAD COORDINATOR Unavailable +[phone] Roslyn Gray [facility] Unavailable +1- Jamie Hamlin MD Unavailable + [phone] Garret Brown PhD LP Unavailable +[phone] Roslyn Gray [facility] Unavailable +1- Roslyn Gray [facility] Unavailable +[phone] Encounter Details Date Type Department Care Team (Late st Contact Info) Description 11/03/2019 [facility] Blood and Marrow Transplant Program [address] [address] Doni Pereyra Social History Tobacco Use Types Packs/Day Years Used Date Smoking Tobacco: Never Smokeless Tobacco: Never Alcohol Use Standard Drinks/Week Comments No 0 (1 standard drink = 0.6 oz pur e alcohol) PHQ-2 Answer Date Recorded PHQ-2 Score 0 09/01/2018 Sex and Gender Information Value Date Recorded Sex Assigned at Male 11/15/2020 10:44 AM CDT Legal Sex Male 3:09 AM SOCIAL SCIENCES CHAIR Gender Identity Male 11/15/2020 10:44 AM CDT [...] documented as of this encounter Care Teams Mathematics Academic Chair Relationship Specialty Start Date End Date Tristan White MD [address] [place] [address] PCP - General Family Practice 11/17/10 Renea Magdaleno MD [address] [place] [address] Internal Medicine 12/09/15 03/20/21 Jamie Hamlin MD [address] [place] [address] MD Cardiology 05/29/18 Tristan White MD [address] [place] [address] Assigned PCP 12/20/13 02/20/20 Tristan White MD [address] [place] [address] Assigned PCP 02/21/20 01/23/24 Renea Magdaleno MD NO INFO AVAILABLE 05/18/2022 Assigned Cancer Care Provider 03/25/20 03/09/22 Jamie Hamlin MD [address] [place] [address] Assigned Heart and Vascular Provider 03/25/20 01/14/21 Tito Gipson MD [address] [place] [address]69 Assigned Musculoskeletal Provider 03/25/20 07/09/20 Marlene Rivas APRN [facility] [address] [place] [address]117 Nurse Practitioner Interventional Cardiology 12/28/20 Roslyn Gray [facility] [address] [place] [address] 30246 Pharmacist Pharmacist 01/11/21 03/09/21 Jamie Hamlin MD [address] [place] [address] Assigned Heart and Vascular Provider 02/19/21 07/13/22 Garret Brown, PhD LP [address] [place] [address] [place] [address] 706145 Assigned Behavioral Health Provider 04/23/21 12/28/22 Roslyn Gray [facility] [address] [place], [place] [phone] Assigned MTM Pharmacist 10/28/21 02/16/22 Roslyn Gray, [facility] [address] [facility] [address] [address] Assigned MTM Pharmacist 02/28/22 07/27/22 documented as of this encounter
--- OUTSIDE RECORDS SUMMARY | 2024-04-22 08:51 | XMS_ITS | Encounter Summary ---
Author Organization [facility] Address [address] [facility] [place] [address] Care Team Providers Care Ballast Regulator Operator Name Role Phone Tristan White MD Primary Care Provider +[phone] Renea Magdaleno MD Unavailable Unavailab Jamie Hodges MD Unavailable + Tristan White MD Unavailable + [phone] Tristan White MD Unavailable + 72 Renea Magdaleno MD Unavailable Unavailab Jamie Hodges MD Unavailable + 2 Tito Gipson MD Unavailable +[phone] Marlene Rivas APRN [facility] Unavailable +[phone] Roslyn Gray [facility] Unavailable +1- Jamie Hamlin MD Unavailable + [phone] Garret Brown PhD LP Unavailable +[phone] Roslyn Gray [facility] Unavailable +1- Roslyn Gray [facility] Unavailable +- Reason for Visit * Reason Comments Medication Refill Encounter Details Date Type Department Care Team (Late st Contact Info) Description 01/01/2020 Refill [facility] [address] [place] [phone] Tristan White MD [address] [place] [address] Medication Refill Social History Tobacco Use Types Packs/Day Years Used Date Smoking Tobacco: Never Smokeless Tobacco: Never Alcohol Use Standard Drinks/Week Comments No 0 (1 standard drink = 0.6 oz pur e alcohol) PHQ-2 Answer Date Recorded PHQ-2 Score 0 09/01/2018 Sex and Gender Information Value Date Recorded Sex Assigned at Male 11/15/2020 10:44 AM CDT Legal Sex Male 3:09 AM WATER MAIN INSTALLER HELPER Gender Identity Male 11/15/2020 10:44 AM CDT [...] documented as of this encounter Care Teams Ballast Regulator Operator Relationship Specialty Start Date End Date Tristan White MD [address] [place] [address] PCP - General Family Practice 11/17/10 Renea Magdaleno MD [address] [place] [address] Internal Medicine 12/09/15 03/20/21 Jamie Hamlin MD [address] [place] [address] Cardiology 05/29/18 Tristan White MD [address] [place] [address] Assigned PCP 12/20/13 02/20/20 Tristan White MD [address] [place] [address] Assigned PCP 02/21/20 01/23/24 Renea Magdaleno MD NO INFO AVAILABLE 05/18/2022 Assigned Cancer Care Provider 03/25/20 03/09/22 Jamie Hamlin MD [address] [place], [place] 177225 Assigned Heart and Vascular Provider 03/25/20 01/14/21 Tito Gipson MD [address] [place], [place] 512165 Assigned Musculoskeletal Provider 03/25/20 07/09/20 Marlene Rivas, CABLE TENDER PSYCHIATRIC CLINICIAN [address] [place], [place] [phone] Nurse Practitioner Interventional Cardiology 12/28/20 Roslyn Gray [facility] [address] [place], [place] 0[address] Pharmacist Pharmacist 01/11/21 03/09/21 Jamie Hamlin MD [address] [place], [place] 030355 Assigned Heart and Vascular Provider 02/19/21 07/13/22 Garret Brown, PhD LP [address] [facility] [address] [place], [place] 517775 Assigned Behavioral Health Provider 04/23/21 12/28/22 Roslyn Gray [facility] [address] [phone] Assigned MTM Pharmacist 10/28/21 02/16/22 Roslyn Gray [facility] [address] [phone] Assigned MTM Pharmacist 02/28/22 07/27/22 documented as of this encounter
--- OUTSIDE RECORDS SUMMARY | 2024-04-22 08:51 | XMS_ITS | Encounter Summary ---
Author Organization [facility] Address [address] [place] [address] Care Team Providers Care Under Trimmer Name Role Phone Tristan White MD Primary Care Provider [phone] Renea Magdaleno MD Unavailable Unavailab Tristan Triana MD Unavailable +- [phone] Jamie Hamlin MD Unavailable + [phone] Anusha Guillermo RN Unavailable +[phone] Tristan White MD Unavailable +- [phone] Tristan White MD Unavailable +- [phone] Renea Magdaleno MD Unavailable Unavailab Jamie Hodges MD Unavailable + [phone] Tito Gipson MD Unavailable +[phone] Marlene Rivas APRN PROMOTIONS EXECUTIVE Unavailable +- [phone] Roslyn Gray [facility] Unavailable +1- Jamie Hamlin MD Unavailable + [phone] Garret Brown PhD LP Unavailable +[phone] Roslyn Gray [facility] Unavailable +1- Roslyn Gray [facility] Unavailable +06-08 Encounter Details Date Type Department Care Team (Late st Contact Info) Description 07/30/2018 [facility] Blood and Marrow Transplant Program [place] [phone] Renea Magdaleno MD NO INFO AVAILABLE 05/18/2022 [...] AM CDT Legal Sex Male 3:09 AM LONG TERM CARE ADMINISTRATOR Gender Identity Male 11/15/2020 10:44 AM CDT Sexual Orientation Straight 11/15/2020 10 :44 AM CDT documented as of this encounter Plan of Treatment Not on file documented as of this encounter Visit Diagnoses Not on filedocumented in this encounter Additional Health Concerns Assessment Noted Time PHQ-9 Depression Total Score: 9 09/23/19 17 7:05 AM CDT documented as of this encounter Care Teams Under Trimmer Relationship Specialty Start Date End Date Tristan White MD [address] [place] [address] PCP - General Family Practice 11/17/10 Tristan White MD [address] [place] [phone] PCP - Assigned PCP 12/20/13 08/05/18 Renea Magdaleno MD [address] [place] [address] Internal Medicine 12/09/15 03/20/21 Jamie Hamlin MD [address] [place] [address] Cardiology 05/29/18 Anusha Guillermo, RN Nurse Coordinator Hematology & Oncology 07/10/18 01/05/19 Tristan White MD [address] [facility] [address] [place] [address] Assigned PCP 12/20/13 02/20/20 Tristan White MD [address] [facility] [address] [place] [address] Assigned PCP 02/21/20 01/23/24 Renea Magdaleno MD NO INFO AVAILABLE 05/18/2022 Assigned Cancer Care Provider 03/25/20 03/09/22 Jamie Hamlin MD [address] [place] [address] [phone] Assigned Heart and Vascular Provider 03/25/20 01/14/21 Tito Gipson MD [address] [place] [address] [phone] Assigned Musculoskeletal Provider 03/25/20 07/09/20 Marlene Rivas, LEAD ACCOUNTANT PROMOTIONS EXECUTIVE [address] [place] [address] [phone] Nurse Practitioner Interventional Cardiology 12/28/20 Roslyn Gray [facility] [address] [place] [address] [address] [place], [place] [phone] Pharmacist Pharmacist 01/11/21 03/09/21 Jamie Hamlin MD [address] [place] [address] [phone] Assigned Heart and Vascular Provider 02/19/21 07/13/22 Garret Brown, PhD LP [address] [place] [address] 741 [place] [address] Assigned Behavioral Health Provider 04/23/21 12/28/22 Roslyn Gray [facility] [address] [place] [address] [phone] Assigned MTM Pharmacist 10/28/21 02/16/22 Roslyn Gray [facility] [address] [phone] Assigned MTM Pharmacist 02/28/22 07/27/22 documented as of this encounter
--- OUTSIDE RECORDS SUMMARY | 2024-04-22 08:51 | XMS_ITS | Encounter Summary ---
Author Organization [facility] Address [facility] [place] [address] Care Team Providers Care Pharmacy Student Name Role Phone Tristan White MD Primary Care Provider [phone] Renea Magdaleno MD Unavailable Unavailab Emily Casiano RN Unavailable + [phone] Tristan White MD Unavailable +- [phone] Jamie Hamlin MD Unavailable + [phone] Anusha Guillermo RN Unavailable +[phone] Tristan White MD Unavailable +- [phone] Tristan White MD Unavailable +- [phone] Renea Magdaleno MD Unavailable Unavailab Jamie Hodges MD Unavailable + 2 Tito Gipson MD Unavailable +[phone] Marlene Rivas APRN MIXER BLENDER Unavailable + [phone] Roslyn Gray [facility] Unavailable +1- Jamie Hamlin MD Unavailable + 2 Garret Brown PhD LP Unavailable +[phone] Roslyn Gray [facility] Unavailable +1- Roslyn Gray [facility] Unavailable +1- Encounter Details Date Type Department Care Team (Late st Contact Info) Description 03/17/2018 [facility] [address] [place] [phone] Doni Pereyra Social History Tobacco Use Types Packs/Day Years Used Date Smoking Tobacco: Never Smokeless Tobacco: Never Alcohol Use Standard Drinks/Week Comments No 0 (1 standard drink = 0.6 oz pur e alcohol) Sex and Gender Information Value Date Recorded Sex Assigned at Male 11/15/2020 10:44 AM CDT Legal Sex Male 3:09 AM 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 Gender Identity Male 11/15/2020 10:44 AM CDT Sexual Orientation Straight 11/15/2020 10 :44 AM CDT documented as of this encounter Plan of Treatment Not on file documented as of this encounter Visit Diagnoses Not on filedocumented in this encounter Additional Health Concerns Assessment Noted Time PHQ-9 Depression Total Score: 9 09/23/19 17 7:05 AM CDT documented as of this encounter Care Teams Pharmacy Student Relationship Specialty Start Date End Date Tristan White MD [address] [place] [phone] PCP - General Family Practice 11/17/10 Tristan White MD [address] [place] [address] PCP - Assigned PCP 12/20/13 08/05/18 Renea Magdaleno MD [address] [place] [address] Internal Medicine 12/09/15 03/20/21 Emily Segura, RN Nurse Coordinator Hematology & Oncology 12/09/15 07/09/18 Jamie Hamlin MD [address] [place] [address] Cardiology 05/29/18 Anusha Guillermo, RN Nurse Coordinator Hematology & Oncology 07/10/18 01/05/19 Tristan White MD [address] [phone] Assigned PCP 12/20/13 02/20/20 Tristan White MD [address] [facility] [address] [place] [address] Assigned PCP 02/21/20 01/23/24 Renea Magdaleno MD NO INFO AVAILABLE 05/18/2022 Assigned Cancer Care Provider 03/25/20 03/09/22 Jamie Hamlin MD [address] [place] [address] [phone] Assigned Heart and Vascular Provider 03/25/20 01/14/21 Tito Gipson MD [address] [place] [address] [phone] Assigned Musculoskeletal Provider 03/25/20 07/09/20 Marlene Rivas, CASHIER PAYMENTS RECEIVED MIXER BLENDER [address] [place] [address] [phone] Nurse Practitioner Interventional Cardiology 12/28/20 Roslyn Gray [facility] [address] [place], [place] [address]E [address] 634894 Pharmacist Pharmacist 01/11/21 03/09/21 Jamie Hamlin MD [address] [place] [address] 374135 Assigned Heart and Vascular Provider 02/19/21 07/13/22 Garret Brown, PhD LP [address] [place] [address] 741 [place] [address] Assigned Behavioral Health Provider 04/23/21 12/28/22 Roslyn Gray [facility] [address] [place] [address] Assigned MTM Pharmacist 10/28/21 02/16/22 Roslyn Gray [facility] [address] [place] [phone] Assigned MTM Pharmacist 02/28/22 07/27/22 documented as of this encounter
--- OUTSIDE RECORDS SUMMARY | 2024-04-22 08:51 | XMS_ITS | Encounter Summary ---
Author Organization [place] Address [address] [facility] [place] [address] Care Team Providers Care Poultry Slaughterer Name Role Phone Tristan White MD Primary Care Provider [phone] Renea Magdaleno MD Unavailable Unavailab Emily Casiano RN Unavailable + [phone] Tristan White MD Unavailable + [phone] Jamie Hamlin MD Unavailable + [phone] Anusha Guillermo RN Unavailable +[phone] Tristan White MD Unavailable + [phone] Tristan White MD Unavailable +- [phone] Renea Magdaleno MD Unavailable Unavailab Jamie Hodges MD Unavailable + 2 Tito Gipson MD Unavailable +[phone] aMrlene Rivas APRN BOILERMAKER [employer]ENTR[employer]ANT Unavailable + [phone] Roslyn Gray [facility] Unavailable +1- Jamie Hamlin MD Unavailable + 2 Garret Brown PhD LP Unavailable +[phone] Roslyn Gray [facility] Unavailable +1- Roslyn Gray [facility] Unavailable +1- Reason for Visit * Reason Onset Date Comments Refill Request 01/27/2018 metFORMIN (GLUCO PHAGE) 1000 MG tablet Encounter Details Date Type Department Care Team (Late st Contact Info) Description 01/27/2018 Refill [facility] [address] [place] [address] 700 [place] [address] Tristan White MD [address] [place] [address] 700 [place] [address] Refill Request (metFORMIN (GLUCOPHAGE) 1000 MG tablet) Social History Tobacco Use Types Packs/Day Years Used Date Smoking Tobacco: Never Smokeless Tobacco: Never Alcohol Use Standard Drinks/Week Comments No 0 (1 standard drink = 0.6 oz pur e alcohol) Sex and Gender Information Value Date Recorded Sex Assigned at Male 11/15/2020 10:44 AM CDT Legal Sex Male 3:09 AM AREA OPERATIONS MANAGER Gender Identity Male 11/15/2020 10:44 AM [...] this time Rx approved and refilled per [facility] refill protocol Carlita Rivas RN 01/28/18 8:27 [...] documented as of this encounter Care Teams Poultry Slaughterer Relationship Specialty Start Date End Date Tristan White MD [address] [place] [address] PCP - General Family Practice 11/17/10 Tristan White MD [address] [place] [phone] PCP - Assigned PCP 12/20/13 08/05/18 Renea Magdaleno MD [address] [place] [address] Internal Medicine 12/09/15 03/20/21 Emily Segura, CHRISTOPHER Nurse Coordinator Hematology & Oncology 12/09/15 07/09/18 Jamie Hamlin MD [address] [place] [address] Cardiology 05/29/18 Anusha Guillermo, CHRISTOPHER Nurse Coordinator Hematology & Oncology 07/10/18 01/05/19 Tristan White MD [address] [place] [address] Assigned PCP 12/20/13 02/20/20 Tristan White MD [address] [place] [address] Assigned PCP 02/21/20 01/23/24 Renea Magdaleno MD NO INFO AVAILABLE 05/18/2022 Assigned Cancer Care Provider 03/25/20 03/09/22 Jamie Hamlin MD [address] [place], [place] [phone] Assigned Heart and Vascular Provider 03/25/20 01/14/21 Tito Gipson MD 9 [place] [address] Assigned Musculoskeletal Provider 03/25/20 07/09/20 Marlene Rivas APRN BOILERMAKER [employer] [address] [place] [address] Nurse Practitioner Interventional Cardiology 12/28/20 Roslyn Gray [facility] [address] [place] [address] [phone] Pharmacist Pharmacist 01/11/21 03/09/21 Jamie Hamlin MD [address] [place] [address] [phone] Assigned Heart and Vascular Provider 02/19/21 07/13/22 Garret Brown, PhD LP [address] [place] [address] 741 [place], [place] 305815 Assigned Behavioral Health Provider 04/23/21 12/28/22 Roslyn Gray [facility] [address] [place] [address] [phone] Assigned MTM Pharmacist 10/28/21 02/16/22 Roslyn Gray [facility] [address] 459404 Assigned MTM Pharmacist 02/28/22 07/27/22 documented as of this encounter
--- OUTSIDE RECORDS SUMMARY | 2024-04-22 08:51 | XMS_ITS | Encounter Summary ---
Author Organization [place] Address [facility] [place] [address] Care Team Providers Care Pin Pusher Name Role Phone Tristan White MD Primary Care Provider [phone] Renea Magdaleno MD Unavailable Unavailab Emily Casiano RN Unavailable + [phone] Tristan White MD Unavailable + [phone] Jamie Hamlin MD Unavailable + [phone] Anusha Guillermo RN Unavailable +[phone] Tristan White MD Unavailable + [phone] Tristan White MD Unavailable +- [phone] Renea Magdaleno MD Unavailable Unavailab Jamie Hodges MD Unavailable + 2 Tito Gipson MD Unavailable +[phone] Marlene Rivas APRN SHIP PAINTER HELPER Unavailable +[phone] Roslyn Gray [facility] Unavailable +1- Jamie Hamlin MD Unavailable + 2 Garret Brown PhD LP Unavailable +[phone] Roslyn Gray [facility] Unavailable +1- Roslyn Gray [facility] Unavailable +[phone] Encounter Details Date Type Department Care Team (Late st Contact Info) Description 02/05/2017 [facility] Blood and Marrow Transplant Program [address] [phone] Renea Magdaleno MD NO INFO AVAILABLE 05/18/2022 Social History Tobacco Use Types Packs/Day Years Used Date Smoking Tobacco: Never Smokeless Tobacco: Never Alcohol Use Standard Drinks/Week Comments No 0 (1 standard drink = 0.6 oz pur e alcohol) Sex and Gender Information Value Date Recorded Sex Assigned at Male 11/15/2020 10:44 AM CDT 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 Gender Identity Male 11/15/2020 10:44 AM CDT Sexual Orientation Straight 11/15/2020 10 :44 AM CDT documented as of this encounter Plan of Treatment Not on file documented as of this encounter Visit Diagnoses Not on filedocumented in this encounter Additional Health Concerns Assessment Noted Time PHQ-9 Depression Total Score: 9 09/23/19 17 7:05 AM CDT documented as of this encounter Care Teams Pin Pusher Relationship Specialty Start Date End Date Tristan White MD [address] [place] [address] PCP - General Family Practice 11/17/10 Tristan White MD [address] [place] [address] PCP - Assigned PCP 12/20/13 08/05/18 Renea Magdaleno MD [address] [place] [address] Internal Medicine 12/09/15 03/20/21 Emily Segura, CHRISTOPHER Nurse Coordinator Hematology & Oncology 12/09/15 07/09/18 Jamie Hamlin MD [address] [place] [address] Cardiology 05/29/18 Anusha Guillermo, RN Nurse Coordinator Hematology & Oncology 07/10/18 01/05/19 Tristan White MD [address] [place] [phone] Assigned PCP 12/20/13 02/20/20 Tristan White MD [address] [place] [address] Assigned PCP 02/21/20 01/23/24 Renea Magdaleno MD NO INFO AVAILABLE 05/18/2022 Assigned Cancer Care Provider 03/25/20 03/09/22 Jamie Hamlin MD 9 [place], [place] [phone] Assigned Heart and Vascular Provider 03/25/20 01/14/21 Tito Gipson MD [address] [place] [address] [phone] Assigned Musculoskeletal Provider 03/25/20 07/09/20 Marlene Rivas, TRAVEL GUIDE SHIP PAINTER HELPER [address] [place], [place] 8655[address] Nurse Practitioner Interventional Cardiology 12/28/20 Roslyn Gray [facility] [address] [place] [address] Pharmacist Pharmacist 01/11/21 03/09/21 Jamie Hamlin MD [address] [place] [address] Assigned Heart and Vascular Provider 02/19/21 07/13/22 Garret Brown, PhD LP [address] [facility] [address] [place] [address] Assigned Behavioral Health Provider 04/23/21 12/28/22 Roslyn Gray [facility] [address] 384704 Assigned MTM Pharmacist 10/28/21 02/16/22 Roslyn Gray [facility] [address] [address] Assigned MTM Pharmacist 02/28/22 07/27/22 documented as of this encounter
--- OUTSIDE RECORDS SUMMARY | 2024-04-22 08:51 | XMS_ITS | Encounter Summary ---
Author Organization [place] Address [address] [place] [address]. [place] [address] Care Team Providers Care Electronics Engineer Name Role Phone Tristan White MD Primary Care Provider [phone] Renea Magdaleno MD Unavailable Unavailab Jamie Hodges MD Unavailable + [phone] Anusha Guillermo RN Unavailable +[phone] Tristan White MD Unavailable +- [phone] Tristan White MD Unavailable +[phone] Renea Magdaleno MD Unavailable Unavailab Jamie Hodges MD Unavailable + [phone] Tito Gipson MD Unavailable + [phone] Marlene Rivas APRN EXERCISE SPECIALIST Unavailable +- [phone] Roslyn Gray [facility] Unavailable +1- Jamie Hamlin MD Unavailable + [phone] Garret Brown PhD LP Unavailable +[phone] Roslyn Gray [facility] Unavailable +1- Roslyn Gray [facility] Unavailable +06-08 Reason for Visit * Reason Onset Date Comments Refill Request 08/29/2018 metFORMIN HCL 10 00 MG TABS 1000 TAB Encounter Details Date Type Department Care Team (Late st Contact Info) Description 08/29/[address] [place] [phone] Tristan White MD [address] [place] [phone] Refill Request (metFORMIN HCL 1000 MG TABS [...] AM CDT 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 Medication refill added to appt notes. Abril Park RN [facility] * Telephone Encounter - MarciaJamaal paredes - 08/29/2018 9:54 AM CDT Requested Prescriptions [...] CDT Office Visit with Tristan White MD [facility] ([facility]) [address] [place] [phone] Sig: TAKE 1 TABLET BY MOUTH TWICE [...] documented as of this encounter Care Teams Electronics Engineer Relationship Specialty Start Date End Date Tristan White MD [address] [phone] PCP - General Family Practice 11/17/10 Renea Magdaleno MD [address] [place] [address] Internal Medicine 12/09/15 03/20/21 aJmie Hamlin MD [address] [place] [address] Cardiology 05/29/18 Anusha Guillermo, RN Nurse Coordinator Hematology & Oncology 07/10/18 01/05/19 Tristan White MD [address] [place] [phone] Assigned PCP 12/20/13 02/20/20 Tristan White MD [address] [phone] Assigned PCP 02/21/20 01/23/24 Renea Magdaleno MD NO INFO AVAILABLE 05/18/2022 Assigned Cancer Care Provider 03/25/20 03/09/22 Jamie Hamlin MD [address] [place] [address] [phone] Assigned Heart and Vascular Provider 03/25/20 01/14/21 Tito Gipson MD [address] [place] [address] Assigned Musculoskeletal Provider 03/25/20 07/09/20 Marlene Rivas, DIRECTOR OF MARKETING AND PROMOTIONS EXERCISE SPECIALIST [address] [place] [address] Nurse Practitioner Interventional Cardiology 12/28/20 Roslyn Gray [facility] [address] [place] [address] Pharmacist Pharmacist 01/11/21 03/09/21 Jamie Hamlin MD [address] [place] [address] Assigned Heart and Vascular Provider 02/19/21 07/13/22 Garret Brown, PhD LP [address] [place] [address] 741 [place] [address] Assigned Behavioral Health Provider 04/23/21 12/28/22 Roslyn Gray [facility] [address] [place] [address] Assigned MTM Pharmacist 10/28/21 02/16/22 Roslyn Gray [facility] [address] [place] [address] Assigned MTM Pharmacist 02/28/22 07/27/22 documented as of this encounter
--- OUTSIDE RECORDS SUMMARY | 2024-04-22 08:51 | XMS_ITS | Encounter Summary ---
Author Organization [place] Address [address] [facility] [place] [address] Care Team Providers Care Interior Assemblies Developer Prover Name Role Phone Tristan White MD Primary Care Provider [phone] Renea Magdaleno MD Unavailable Unavailab Emily Casiano RN Unavailable + [phone] Tristan White MD Unavailable +- [phone] Jamie Hamlin MD Unavailable + [phone] Anusha Guillermo RN Unavailable +[phone] Tristan White MD Unavailable +- [phone] Tristan White MD Unavailable +- [phone] Renea Magdaleno MD Unavailable Unavailab Jamie Hodges MD Unavailable + 2 Tito Gipson MD Unavailable +[phone] Marlene Rivas APRN RN SURGICAL Unavailable + [phone] Roslyn Gray [facility] Unavailable +1- Jamie Hamlin MD Unavailable + 2 Garret Brown PhD LP Unavailable +[phone] Roslyn Gray [facility] Unavailable +1- Roslyn Gray [facility] Unavailable +1- Reason for Visit * Reason Onset Date Comments Prior Auth - Medication 07/25/2017 valACYcl ovir (VALTREX) 500 MG tablet-DENIED Encounter Details Date Type Department Care Team (Late st Contact Info) Description 07/25/2017 Telephone [facility] Blood and Marrow Transplant Program [address] [address] Renea Magdaleno MD NO INFO [...] AM CDT 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 PRIOR AUTHORIZATION DENIED Medication: valACYclovir (VALTREX) 500 MG tablet-DENIED Denial Date: 07/29/2017 Denial Rational: Appeal Information: PING CLERK PACKING * Telephone Encounter - Ivana Noriega - 07/26/2017 9:25 AM CST Images from the original note were not included. Central Prior Authorization Team PA Initiation Medication: valACYclovir (VALTREX) 500 MG tablet- PA Initiated Insurance Company: [employer] - Pharmacy Filling the Rx: [facility] [id number] [place] [id number] [address] [facility] [address] Filling Pharmacy Filling Pharmacy Start Date: 07/26/2017 PING CLERK PACKING * Telephone Encounter - Ale Rodriguez - 07/25/2017 11:47 AM CST Images from the original note were not included. Central Prior Authorization Team PING CLERK PACKING documented in this encounter Plan of Treatment Not on file documented as of this encounter Visit Diagnoses Not on filedocumented in this encounter Additional Health Concerns Assessment Noted Time PHQ-9 Depression Total Score: 9 09/23/19 17 7:05 AM CDT documented as of this encounter Care Teams Interior Assemblies Developer Prover Relationship Specialty Start Date End Date Tristan White MD [address] [place] [phone] PCP - General Family Practice 11/17/10 Tristan White MD [address] [place] [phone] PCP - Assigned PCP 12/20/13 08/05/18 Renea Magdaleno MD [address] [place] [address] Internal Medicine 12/09/15 03/20/21 Emily Segura, RN Nurse Coordinator Hematology & Oncology 12/09/15 07/09/18 Jamie Hamlin MD [address] [place] [address] Cardiology 05/29/18 Anusha Guillermo, RN Nurse Coordinator Hematology & Oncology 07/10/18 01/05/19 Tristan White MD [address] [place] [phone] Assigned PCP 12/20/13 02/20/20 Tristan White MD [address] [place] [address] [address] [place] [phone] Assigned PCP 02/21/20 01/23/24 Renea Magdaleno MD NO INFO AVAILABLE 05/18/2022 Assigned Cancer Care Provider 03/25/20 03/09/22 Jamie Hamlin MD [address] [place] [address] [phone] Assigned Heart and Vascular Provider 03/25/20 01/14/21 Tito Gipson MD [address] [place] [address] [phone] Assigned Musculoskeletal Provider 03/25/20 07/09/20 Marlene Rivas HYDROBLASTER [facility] [address] [place] [address] [phone] Nurse Practitioner Interventional Cardiology 12/28/20 Roslyn Gray, [facility] [address] [facility] [address] [place] [address] Pharmacist Pharmacist 01/11/21 03/09/21 Jamie Hamlin MD [address] [place] [address] [phone] Assigned Heart and Vascular Provider 02/19/21 07/13/22 Garret Brown, PhD LP [address] [place] [address] 741 [place], [place] 086945 Assigned Behavioral Health Provider 04/23/21 12/28/22 Roslyn Gray [facility] [address] [place] [address] [phone] Assigned MTM Pharmacist 10/28/21 02/16/22 Roslyn Gray [facility] [address] 032794 Assigned MTM Pharmacist 02/28/22 07/27/22 documented as of this encounter
--- OUTSIDE RECORDS SUMMARY | 2024-04-22 08:51 | XMS_ITS | Encounter Summary ---
Author Organization [place] Address [address] [place] [address] Care Team Providers Care Brick Extruder Operator Name Role Phone Tristan White MD Primary Care Provider [phone] Renea Magdaleno MD Unavailable Unavailab Jamie Hodges MD Unavailable + Tristan White MD Unavailable + [phone] Tristan White MD Unavailable + [phone] Renea Magdaleno MD Unavailable Unavailab Jamie Hodges MD Unavailable + 2 Tito Gipson MD Unavailable +[phone] Marlene Rivas APRN EDUCATIONAL DIRECTOR Unavailable +[phone] Roslyn Gray [facility] Unavailable +1- Jamie Hamlin MD Unavailable + Garret Brown PhD LP Unavailable +[phone] Roslyn Gray [facility] Unavailable +1- Roslyn Gray [facility] Unavailable +06-08 Encounter Details Date Type Department Care Team (Late st Contact Info) Description 01/28/2019 [facility] Blood and Marrow Transplant Program [address] [address] Renea Magdaleno MD NO INFO [...] AM CDT 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 Gender Identity Male 11/15/2020 10:44 AM CDT Sexual Orientation Straight 11/15/2020 10 :44 AM CDT documented as of this encounter Plan of Treatment Not on file documented as of this encounter Visit Diagnoses Not on filedocumented in this encounter Additional Health Concerns Assessment Noted Time PHQ-9 Depression Total Score: 9 09/23/19 17 7:05 AM CDT documented as of this encounter Care Teams Brick Extruder Operator Relationship Specialty Start Date End Date Tristan White MD [address] [place] [address] PCP - General Family Practice 11/17/10 Renea Magdaleno MD [address] [place] [address] Internal Medicine 12/09/15 03/20/21 Jamie Hamlin MD [address] [place] [phone] Cardiology 05/29/18 Tristan White MD [address] [place] [phone] Assigned PCP 12/20/13 02/20/20 Tristan White MD [address] [place] [address] Assigned PCP 02/21/20 01/23/24 Renea Magdaleno MD NO INFO AVAILABLE 05/18/2022 Assigned Cancer Care Provider 03/25/20 03/09/22 Jamie Hamlin MD [address] [place] [address] [phone] Assigned Heart and Vascular Provider 03/25/20 01/14/21 Tito Gipson MD [address] [place] [address] [phone] Assigned Musculoskeletal Provider 03/25/20 07/09/20 Marlene Rivas APRN [facility] [address] [place] [address] [phone] Nurse Practitioner Interventional Cardiology 12/28/20 Roslyn Gray [facility] [address] [place] [address] Pharmacist Pharmacist 01/11/21 03/09/21 Jamie Hamlin MD [address] [place] [address] [phone] Assigned Heart and Vascular Provider 02/19/21 07/13/22 Garret Brown, PhD LP [address] [place] [address] [phone] Assigned Behavioral Health Provider 04/23/21 12/28/22 Roslyn Gray [facility] [address] [place] [address] [phone] Assigned MTM Pharmacist 10/28/21 02/16/22 Roslyn Gray, [facility] [address] [phone] Assigned MTM Pharmacist 02/28/22 07/27/22 documented as of this encounter
--- OUTSIDE RECORDS SUMMARY | 2024-04-22 08:51 | XMS_ITS | Encounter Summary ---
Author Organization [place] Address [address] [place] [address] Care Team Providers Care Stretcher Drier Operator Name Role Phone Tristan White MD Primary Care Provider [phone] Renea Magdaleno MD Unavailable Unavailab Jamie Hodges MD Unavailable + Tristan White MD Unavailable + [phone] Tristan White MD Unavailable +- [phone] Renea Magdaleno MD Unavailable Unavailab Jamie Hodges MD Unavailable + 2 Tito Gipson MD Unavailable +[phone] Marlene Rivas APRN DIGITAL CONTROLS TECHNICAL OFFICER Unavailable +[phone] Roslyn Gray [facility] Unavailable +1- Jamie Hamlin MD Unavailable + Garret Brown PhD LP Unavailable +[phone] Roslyn Gray [facility] Unavailable +1- Roslyn Gray [facility] Unavailable +06-08 Encounter Details Date Type Department Care Team (Late st Contact Info) Description 05/07/2019 [facility] Blood and Marrow Transplant Program [address] [address] Renea Magdaleno MD NO INFO [...] AM CDT 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 Gender Identity Male 11/15/2020 10:44 AM CDT Sexual Orientation Straight 11/15/2020 10 :44 AM CDT documented as of this encounter Plan of Treatment Not on file documented as of this encounter Visit Diagnoses Not on filedocumented in this encounter Additional Health Concerns Assessment Noted Time PHQ-9 Depression Total Score: 9 09/23/19 17 7:05 AM CDT documented as of this encounter Care Teams Stretcher Drier Operator Relationship Specialty Start Date End Date Tristan White MD [address] [place] [address] PCP - General Family Practice 11/17/10 Renea Magdaleno MD [address] [place] [address] Internal Medicine 12/09/15 03/20/21 Jamie Hamlin MD [address] [place] [address] Cardiology 05/29/18 Tristan White MD [address] [place] [address] Assigned PCP 12/20/13 02/20/20 Tristan White MD [address] [place] [address] Assigned PCP 02/21/20 01/23/24 Renea Magdaleno MD NO INFO AVAILABLE 05/18/2022 Assigned Cancer Care Provider 03/25/20 03/09/22 Jamie Hamlin MD [address] [place] [address] [phone] Assigned Heart and Vascular Provider 03/25/20 01/14/21 Tito Gipson MD [address] [place] [address] [phone] Assigned Musculoskeletal Provider 03/25/20 07/09/20 Marlene Rivas APRN [facility] [address] [place] [address] [phone] Nurse Practitioner Interventional Cardiology 12/28/20 Roslyn Gray [facility] [address] [place] [address] Pharmacist Pharmacist 01/11/21 03/09/21 Jamie Hamlin MD [address] [place] [address] [phone] Assigned Heart and Vascular Provider 02/19/21 07/13/22 Garret Brown, PhD LP [address] [place] [address] [phone] Assigned Behavioral Health Provider 04/23/21 12/28/22 Roslyn Gray [facility] [address] [place] [address] [phone] Assigned MTM Pharmacist 10/28/21 02/16/22 Roslyn Gray, [facility] [address] [phone] Assigned MTM Pharmacist 02/28/22 07/27/22 documented as of this encounter
--- OUTSIDE RECORDS SUMMARY | 2024-04-22 08:51 | XMS_ITS | Encounter Summary ---
Author Organization [place] Address [address] [place] [address] Care Team Providers Care Special Education Director Name Role Phone Tristan White MD Primary Care Provider [phone] Renea Magdaleno MD Unavailable Unavailab Emily Casiano RN Unavailable + [phone] Tristan White MD Unavailable + [phone] Jamie Hamlin MD Unavailable + [phone] Anusha Guillermo RN Unavailable +[phone] Tristan White MD Unavailable + [phone] Tristan White MD Unavailable +- [phone] Renea Magdaleno MD Unavailable Unavailab Jamie Hodges MD Unavailable + 2 Tito Gipson MD Unavailable +[phone] Marlene Rivas APRN ROPE TIER Unavailable + [phone] Roslyn Gray [facility] Unavailable +1- Jamie Hamlin MD Unavailable + 2 Garret Brown PhD LP Unavailable +[phone] Roslyn Gray [facility] Unavailable +1- Roslyn Gray [facility] Unavailable +1- Reason for Visit * Reason Onset Date Comments Prior Auth - Medication 11/30/2016 atorvast atin (LIPITOR) 10 MG tablet- Denied Encounter Details Date Type Department Care Team (Late st Contact Info) Description 12/18/[address] [address] Jamie Hamlin MD [address] [place] [address] Prior Auth - Medication (atorvastatin (LIPITOR) 10 MG tablet- Denied) Social History Tobacco Use Types Packs/Day Years Used Date Smoking Tobacco: Never Smokeless Tobacco: Never Alcohol Use Standard Drinks/Week Comments No 0 (1 standard drink = 0.6 oz pur e alcohol) Sex and Gender Information Value Date Recorded Sex Assigned at Male 11/15/2020 10:44 AM CDT 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 Male 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 Gender Identity Male 11/15/2020 10:44 AM CDT [...] atorvastatin (LIPITOR) 10 MG tablet Insurance Company: [id number] - Pharmacy Filling the Rx: [facility] [address] [place], [place] - [address] Filling Pharmacy Filling Pharmacy Start Date: 12/26/2016 documented in this encounter Plan of Treatment Not on file documented as of this encounter Visit Diagnoses Not on filedocumented in this encounter Additional Health Concerns Assessment Noted Time PHQ-9 Depression Total Score: 9 09/23/19 17 7:05 AM CDT documented as of this encounter Care Teams Special Education Director Relationship Specialty Start Date End Date Tristan White MD [address] [place] [address] PCP - General Family Practice 11/17/10 Tristan White MD [address] [place] [address] PCP - Assigned PCP 12/20/13 08/05/18 Renea Magdaleno MD [address] [place] [address] Internal Medicine 12/09/15 03/20/21 Emily Segura, CHRISTOPHER Nurse Coordinator Hematology & Oncology 12/09/15 07/09/18 Jamie Hamlin MD [address] [place] [address] Cardiology 05/29/18 Anusha Guillermo, RN Nurse Coordinator Hematology & Oncology 07/10/18 01/05/19 Tristan White MD [address] [place] [address] Assigned PCP 12/20/13 02/20/20 Tristan White MD [address] [place] [address] [address] [place] [address] Assigned PCP 02/21/20 01/23/24 Renea Magdaleno MD NO INFO AVAILABLE 05/18/2022 Assigned Cancer Care Provider 03/25/20 03/09/22 Jamie Hamlin MD [address] [place] [address] [phone] Assigned Heart and Vascular Provider 03/25/20 01/14/21 Tito Gipson MD [address] [place] [address] [phone] Assigned Musculoskeletal Provider 03/25/20 07/09/20 Marlene Rivas APRN ROPE TIER [address] [place] [address] [phone] Nurse Practitioner Interventional Cardiology 12/28/20 Roslyn Gray [facility] [address] [facility] [address] [place] [address] Pharmacist Pharmacist 01/11/21 03/09/21 Jamie Hamlin MD [address] [place] [address] [phone] Assigned Heart and Vascular Provider 02/19/21 07/13/22 Garret Brown, PhD LP [address] [place] [address] 741 [place], [place] [phone] Assigned Behavioral Health Provider 04/23/21 12/28/22 Roslyn Gray [facility] [address] [place] [address] [phone] Assigned MTM Pharmacist 10/28/21 02/16/22 Roslyn Gray [facility] [address] [phone] Assigned MTM Pharmacist 02/28/22 07/27/22 documented as of this encounter
--- OUTSIDE RECORDS SUMMARY | 2024-04-22 08:51 | XMS_ITS | Encounter Summary ---
Author Organization [place] Address [address] [facility] [place] [address] Care Team Providers Care Seamless Tube Drawer Name Role Phone Tristan White MD Primary Care Provider +[phone] Renea Magdaleno MD Unavailable Unavailab Jamie Hodges MD Unavailable + Tristan White MD Unavailable + [phone] Tristan White MD Unavailable + [phone] Renea Magdaleno MD Unavailable Unavailab Jamie Hodges MD Unavailable + 2 Tito Gipson MD Unavailable [phone] Marlene Rivas APRN [facility] Unavailable [phone] Roslyn Gray [facility] Unavailable +1- Jamie Hamlin MD Unavailable + Garret Brown PhD LP Unavailable +[phone] Roslyn Gray [facility] Unavailable [...] AM CDT 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 Gender Identity Male 11/15/2020 10:44 AM CDT [...] documented as of this encounter Care Teams Seamless Tube Drawer Relationship Specialty Start Date End Date Tristan White MD [address] [place] [phone] PCP - General Family Practice 11/17/10 Renea Magdaleno MD [address] [place] [address] Internal Medicine 12/09/15 03/20/21 Jamie Hamlin MD [address] [place] [phone] Cardiology 05/29/18 Tristan White MD [address] [place] [phone] Assigned PCP 12/20/13 02/20/20 Tristan White MD [address] [place] [phone] Assigned PCP 02/21/20 01/23/24 Renea Magdaleno MD NO INFO AVAILABLE 05/18/2022 Assigned Cancer Care Provider 03/25/20 03/09/22 Jamie Hamlin MD [address] [place] [id number] Assigned Heart and Vascular Provider 03/25/20 01/14/21 Tito Gipson MD [address] [place] [address] [phone] Assigned Musculoskeletal Provider 03/25/20 07/09/20 Marlene Rivas APRN [facility] [address] [place] [address] [phone] Nurse Practitioner Interventional Cardiology 12/28/20 Roslyn Gray [facility] [address] [place] [address] [phone] Pharmacist Pharmacist 01/11/21 03/09/21 Jamie Hamlin MD [address] [place] [address] [phone] Assigned Heart and Vascular Provider 02/19/21 07/13/22 Garret Brown, PhD LP [address] [place] [address] [place] [address] [phone] Assigned Behavioral Health Provider 04/23/21 12/28/22 Roslyn Gray [facility] [address] [place] [address] [phone] Assigned MTM Pharmacist 10/28/21 02/16/22 Roslyn Gray [facility] [address] [address] Assigned MTM Pharmacist 02/28/22 07/27/22 documented as of this encounter
== END 2024-04-22 08:47 | disposition home or self-care (01) ==
LOC: RAD 08:47
PROVIDERS: PCP Internal Medicine; Visit Provider Internal Medicine
DX: I95.1 Orthostatic hypotension (principal); I42.9 Cardiomyopathy, unspecified
CPT/HCPCS: 93306

== ENCOUNTER 2024-08-27 11:00 | Outpatient (RCR) | payer MEDICARE, SELFPAY ==
[2024-08-18 11:31] LABS: Hematocrit 44.9 % (37.0-53.0); Hemoglobin* 14.7 gm/dL (13.5-17.5); Immature Granulocytes Pct Auto 0.2 %; Immature Reticulocyte Fraction 9.6 % (2.3-13.4); Mean Corpuscular HGB Conc 33 gm/dL (32-36); Mean Corpuscular Hemoglobin 30 pg (26-34); Mean Corpuscular Volume 91 fL (80-100); RDW Coefficient of Variation % 12.3 % (11.5-15.5); Red Blood Count 4.94 m/uL (4.30-5.90); Reticulocyte Hemoglobin Equivi 31.6 pg (29.0-35.0); Reticulocytes Absolute 0.06 # (0.03-0.08); White Blood Count* 4.49 K/uL (4.50-11.00)
[2024-08-18 11:39] LABS: Immature Granulocytes Abs Auto 0.00 K/uL (0.00-0.30); Lymphocytes Absolute Auto 1.50 K/uL (0.90-2.90); Slide Review Reflex No
== END 2025-02-14 23:59 | disposition home or self-care (01) ==
LOC: CCIC 11:00
PROVIDERS: PCP Internal Medicine; Visit Provider Internal Medicine Hematology & Oncology
DX: C91.40 Hairy cell leukemia not having achieved remission (principal)
CPT/HCPCS: 36415; 85025; 85045; 99212; 99213; G0463

== ENCOUNTER 2024-12-23 09:30 | Outpatient (CLI) | payer MEDICARE, SELFPAY | END 2024-12-23 09:31 | disposition home or self-care (01) | LOC: NFLDREF 12-24 03:04 | PROVIDERS: PCP Internal Medicine; Referring Provider Internal Medicine; Visit Provider Internal Medicine | DX: E78.5 Hyperlipidemia, unspecified (principal); I10 Essential (primary) hypertension; E11.65 Type 2 diabetes mellitus with hyperglycemia; Z12.5 Encounter for screening for malignant neoplasm of prostate | CPT/HCPCS: 80053; 80061; 82043; 82570; G0103 ==